=== PATIENT | female | born 1945 | race Caucasian/White ===

== ENCOUNTER → 2016-11-12 | Outpatient (CLI) | payer MEDICARE ==
[~2016-11-12] MED LIST: BACT800T5 PO; CEPH-460 PO; IBUP-1129 PO; OXYC1TAB63 PO; PAXI10TA2 PO
[2016-11-12 15:12] LABS: AUTOMATED NEUTROPHIL # 4.5 TH/MM3 (1.8-7.7); BASOPHIL % 0.6 % (0.0-2.0); EOSINOPHIL % 0.7 % (0.0-4.0); HEMATOCRIT 37.7 % (35.0-46.0); HEMO FLAGS DIFF FINAL; LYMPH % 26.4 % (9.0-44.0); LYMPHOCYTE # 1.8 TH/MM3 (1.0-4.8); MEAN CELL VOLUME 90.5 FL (80.0-100.0); MEAN CORPUSCULAR HEMOGLOBIN 31.3 PG (27.0-34.0); MEAN CORPUSCULAR HGB CONC 34.6 % (32.0-36.0); MONO % 5.9 % (0.0-8.0); NEUT % 66.4 % (16.0-70.0); PLATELET COUNT 245 TH/MM3 (150-450); RED BLOOD COUNT 4.16 MIL/MM3 (4.00-5.30); RED CELL DISTRIBUTION WIDTH 13.1 % (11.6-17.2); WHITE BLOOD COUNT 6.7 TH/MM3 (4.0-11.0)
[2016-11-12 15:26] LABS: APTT (PATIENT) 25.8 SEC (24.3-30.1); INTERNATIONAL NORMALIZED RATIO 0.9 RATIO; PROTHROMBIN TIME - PATIENT 10.4 SEC (9.8-11.6)
[2016-11-12 15:42] LABS: ANION GAP 8 MEQ/L (5-15); AST (GOT) 19 U/L (15-37); BICARBONATE 28.2 MEQ/L (21.0-32.0); BLOOD UREA NITROGEN 22 MG/DL (7-18); CHLORIDE 108 MEQ/L (98-107); GLOMERULAR FILTRATION RATE 71 ML/MIN (>89); GLUCOSE,FASTING 93 MG/DL (74-99); POTASSIUM 3.9 MEQ/L (3.5-5.1); SODIUM (NA) 144 MEQ/L (136-145)
[2016-11-12 15:50] LABS: ALKALINE PHOSPHATASE 72 U/L (45-117); ALT (GPT) 23 U/L (10-53); TOTAL BILIRUBIN ADULT 0.9 MG/DL (0.2-1.0)
--- NOTE | 2016-11-13 12:17 | EKG ---
Date Performed: 11/12/2016 Time Performed: 15:04:56 PTAGE: 71 years EKG: Sinus rhythm WITH OCCASIONAL SUPRAVENTRICULAR PREMATURE COMPLEXES LOW QRS VOLTAGE IN PRECORDIAL LEADS BORDERLINE ECG NO PREVIOUS TRACING DOCTOR: Tiago Parker Interpretating Date/Time 11/13/2016 12:14:57
== END ==
LOC: CPRE 14:11
PROVIDERS: ATTEND Obstetrics & Gynecology Gynecologic Oncology
DX: Z01.812 Encounter for preprocedural laboratory examination (principal); Z01.810 Encounter for preprocedural cardiovascular examination; C54.1 Malignant neoplasm of endometrium; R94.31 Abnormal electrocardiogram [ECG] [EKG]
CPT/HCPCS: 36415; 80053; 85025; 85610; 85730; 93005

== ENCOUNTER 2016-11-25 07:56 | Observation (INO) | payer MEDICARE ==
[~2016-11-25] VITALS: Ht 168.9 cm; Wt 65.8 kg
[~2016-11-25 07:56] MED LIST changes: -BACT800T5 PO; -CEPH-460 PO; -IBUP-1129 PO; -OXYC1TAB63 PO
[2016-11-25 08:45] VITALS: BP 137/73; PULSE 63; RESP 18; TEMP 97.7; O2SAT 95
[2016-11-25] MEDS ORDERED: SODIUM CHLORID 0.9% 500 ML IV PRN (08:45)
[2016-11-25] MEDS ORDERED: INSULIN HUMAN REGULAR 1,000 UNITS/10 ML VIAL SQ PRN (08:45)
[2016-11-25] MEDS ORDERED: ceFAZolin 1,000 MG/NS 100 ML IV SCH ×2 (08:45)
[2016-11-25] MEDS ORDERED: CHLORHEXIDINE GLUCONATE 2 % 1 PACK (2 CLOTHS) TOPICAL PRN (08:45)
[2016-11-25] MEDS ORDERED: IBUP-1129 PO (08:45)
[2016-11-25] MEDS ORDERED: POVIDONE IODINE 5% (ANTISEPSIS KIT) 4 APPLICATIONS EACH NARE PRN (08:45)
[2016-11-25] MEDS ORDERED: HEPARIN SODIUM - SQ 10,000 UNITS/ML VIAL SQ SCH (08:45)
[2016-11-25] MEDS ORDERED: LACTATED RINGER'S 1000 ML IV PRN (08:45)
[2016-11-25] MEDS ORDERED: METOPROLOL TARTRATE 25 MG TAB PO PRN (08:45)
[2016-11-25] MEDS ORDERED: ACETAMINOPHEN 1000 MG/100 ML VIAL IV ONE (11:35)
[2016-11-25] MEDS ORDERED: HYDROmorphone HCL PF 2 MG/ML VIAL ONE (11:36)
[2016-11-25] MEDS ORDERED: MIDAZOLAM HCL 2 MG/2 ML VIAL ONE (11:36)
[2016-11-25] MEDS ORDERED: DEXAMETHASONE SOD PHOS 4 MG/ML VIAL ONE (11:36)
[2016-11-25] MEDS ORDERED: ARTIFICIAL TEARS OPTH OINT 3.5 APPLIC/3.5 GM TUBO ONE (11:36)
[2016-11-25] MEDS ORDERED: FAMOTIDINE 20 MG/2 ML VIAL ONE (11:36)
[2016-11-25] MEDS ORDERED: PROPOFOL 200 MG/20 ML AMP IV ONE (12:00)
[2016-11-25] MEDS ORDERED: VECURONIUM BROMIDE 10 MG VIAL IV ONE (12:00)
[2016-11-25] MEDS ORDERED: ONDANSETRON HCL 4 MG/2 ML VIAL IV PUSH ONE ×2 (12:00)
[2016-11-25] MEDS ORDERED: PHENYLEPH/NS 1000 MCG/10 ML SYR IV ONE (12:00)
[2016-11-25] MEDS ORDERED: ePHEDrine/NS 25 MG/5 ML SYR IV ONE (12:00)
[2016-11-25] MEDS ORDERED: NORMOSOL R INJ 1,000 ML IV ONE (12:00)
[2016-11-25] MEDS ORDERED: LACTATED RINGER'S 1000 ML INJ 1,000 ML IV ONE (12:00)
[2016-11-25] MEDS ORDERED: LIDOCAINE 1%/EPINEPHrine 1:100,000 SOLN 30 ML VIAL INFIL ONE (12:30)
[2016-11-25] MEDS ORDERED: METHYLENE BLUE 10 MG/ML VIAL OTHER ONE (14:01)
[2016-11-25] MEDS ORDERED: SUGAMMADEX SODIUM 200 MG/2 ML VIAL IV PUSH ONE ×2 (14:22)
[2016-11-25] MEDS ORDERED: fentaNYL CITRATE 250 MCG/5 ML AMP ONE ×2 (14:22→16:40)
[2016-11-25] MEDS ORDERED: SILVER NITR/POTASSIUM NITRATE APPLICATORS TOPICAL ONE (16:09)
[2016-11-25] MEDS: D5-1/2 NS + KCL 20 MEQ INJ 1,000 ML IV SCH (16:25)
[2016-11-25] MEDS ORDERED: oxyCODONE/ACETAMINOPHEN 5 MG/325 MG TAB PO PRN (16:30)
[2016-11-25] MEDS ORDERED: SODIUM CHLORIDE 0.9% FLUSH 10 ML FLUSH IV FLUSH PRN (16:30)
[2016-11-25] MEDS ORDERED: LORazepam 0.5 MG TAB PO PRN (16:30)
[2016-11-25] MEDS ORDERED: diphenhydrAMINE HCL 25 MG CAP PO PRN (16:30)
[2016-11-25] MEDS ORDERED: *morphine SULFATE 8 MG/ML PERIprocedure ONLY ONE (16:59)
[2016-11-25] MEDS ORDERED: DO NOT ADM ANY ANTICOAGULANT DRUGS PRN (17:00)
[2016-11-25] MEDS: KETOROLAC TROMETHAMINE 30 MG/ML (IVP) VIAL IVP SCH (18:00)
[2016-11-25 18:20] VITALS: BP 148/98; PULSE 88; RESP 18; TEMP 98; O2SAT 93
[2016-11-25 20:00] VITALS: BP 137/70; PULSE 63; RESP 17; TEMP 96.8; O2SAT 93
[2016-11-25] MEDS ORDERED: SODIUM CHLORIDE 0.9% FLUSH 10 ML FLUSH IV FLUSH SCH (21:00)
[2016-11-25] MEDS ORDERED: PARoxetine HCL 20 MG TAB PO SCH (21:00)
[2016-11-25] MEDS: ONDANSETRON HCL 4 MG/2 ML VIAL IVP PRN (21:18)
[2016-11-25] MEDS: oxyCODONE/ACETAMINOPHEN 5 MG/325 MG TAB PO PRN (21:18)
[2016-11-26] VITALS: BP 149/69; PULSE 65; RESP 17; TEMP 97; O2SAT 96
[2016-11-26] MEDS: KETOROLAC TROMETHAMINE 30 MG/ML (IVP) VIAL IVP SCH ×2 (00:18→05:56)
[2016-11-26] MEDS: D5-1/2 NS + KCL 20 MEQ INJ 1,000 ML IV SCH (02:30)
[2016-11-26] MEDS: oxyCODONE/ACETAMINOPHEN 5 MG/325 MG TAB PO PRN ×2 (04:25→09:05)
[2016-11-26 05:53] LABS: AUTOMATED NEUTROPHIL # 6.9 TH/MM3 (1.8-7.7); BASOPHIL % 0.3 % (0.0-2.0); HEMATOCRIT 34.3 % (35.0-46.0); HEMO FLAGS DIFF FINAL; LYMPHOCYTE # 1.3 TH/MM3 (1.0-4.8); MEAN CELL VOLUME 91.3 FL (80.0-100.0); MEAN CORPUSCULAR HEMOGLOBIN 30.8 PG (27.0-34.0); MEAN CORPUSCULAR HGB CONC 33.7 % (32.0-36.0); MONO % 7.7 % (0.0-8.0); PLATELET COUNT 184 TH/MM3 (150-450); RED BLOOD COUNT 3.76 MIL/MM3 (4.00-5.30); RED CELL DISTRIBUTION WIDTH 13.1 % (11.6-17.2)
[2016-11-26 06:01] VITALS: BP 112/59; PULSE 76; RESP 17; TEMP 98.9; O2SAT 95
[2016-11-26 06:21] LABS: BICARBONATE 26.7 MEQ/L (21.0-32.0); POTASSIUM 3.7 MEQ/L (3.5-5.1)
[2016-11-26] MEDS ORDERED: OXYC1TAB63 PO (07:35)
[2016-11-26 08:00] VITALS: BP 117/63; PULSE 70; RESP 16; TEMP 99.1; O2SAT 95
[2016-11-26] MEDS: ONDANSETRON HCL 4 MG/2 ML VIAL IVP PRN (08:57)
--- NOTE | 2016-11-26 18:43 | MP ---
cc: MUNDO CARBAJAL MD,SIOMARA LOPEZ MD, M.D. DATE OF SURGERY 11/25/2016 PREOPERATIVE DIAGNOSIS Endometrial cancer. POSTOPERATIVE DIAGNOSIS Endometrial cancer. PROCEDURE Robotic-assisted laparoscopic hysterectomy, bilateral salpingo-oophorectomy, bilateral pelvic lymphadenectomy, para-aortic lymphadenectomy. SURGEON Alfonzo Liriano MD HVAC OPERATIONS TECHNICIAN Fleming assistant program director ANESTHESIA General endotracheal anesthesia ESTIMATED BLOOD LOSS 100 mL IV FLUIDS 1400 mL URINE OUTPUT 200 mL HISTORY A 71-year-old female postmenopausal bleeding. Imaging showed a mass-like effect in the fundus of the uterus. Biopsy was obtained which showed a grade 2 endometrial adenocarcinoma. She was seen and counseled regarding options, was in favor of surgery. We discussed risk factors that may warrant recommendation for staging procedure. She was in favor of being thorough with staging, understood any potential long and short-term risks and benefits. She is seen again in the preop holding area where the findings, plan of care are discussed, reviewed. Questions were answered. She expressed good understanding and wished to move forward with surgery. FINDINGS AT SURGERY The uterus was enlarged. It sounded to approximately 8 cm with small amount of bleeding during manipulation of the uterus. at the beginning of case on the peritoneal assessment the uterus is prominent. The fundus has a mass-like effect from the external view could be utility sales representative of a leiomyoma, although the consistency was less firm than a leiomyoma and raised the possibility of tumor in conjunction with CAT scan findings. There were no appreciably enlarged pelvic or para-aortic lymph nodes. The peritoneal surfaces were smooth. The liver and diaphragm edges were smooth. The omentum, large and small bowel and adjacent mesentery were all normal without tumor implants. Preliminary pathology showed there to be a fairly large tumor in the uterus approximately 7 cm and it grew into the wall of the uterus 100% depth of invasion. It was uncertain whether or not it extended through the serosa on the sections reviewed. There did not seem to be penetration into the serosa, but there was essentially 100% invasion into the myometrium. There was no endocervical extension. PROCEDURE IN DETAIL The patient taken to the operating room placed in dorsal lithotomy position where general endotracheal anesthesia was administered. Time-out was undertaken. The patient was identified by sight recognition and hospital ID bracelet and the proposed procedure was reviewed and confirmed. She was carefully positioned in padded Roger stirrups. Her arms were padded and secured to the sides. She was further secured to the operating table with egg crate padding and tape in across chest over the shoulder fashion. All sites noted to be properly aligned with no malalignments or pressure points. She was prepped below the waist. Special note and caution was made in positioning this patient and in manipulating her during surgery. She has limited mobility in her left leg, especially at the hip joint so she was positioned asymmetrically on the bed. She was positioned to the toward the left side of the bed such that the left stirrup was essentially straight out without lateral movement and we limited the flexing and mobilization during positioning and during the surgery. After being prepped in sterile fashion, the cervix was grasped, uterine cavity was sounded with findings as described above. A small V-Care manipulator was inserted and secured in usual fashion. Valdez catheter placed in the bladder. She was returned to low lithotomy position. Change of sterile gloves was undertaken. We completed draping in anticipation of laparoscopy. We confirmed that an orogastric tube was in the stomach on suction. With manual elevation of the abdominal wall and direct laparoscopic visualization, 5 mm cannula was placed in the left upper quadrant. Carbon dioxide gas was insufflated and an atraumatic entry was confirmed. She was placed in steep Trendelenburg position. Peritoneal washings were obtained for cytology. The anatomy was explored with findings as described above. Small bowel was folded back on its mesenteric root. Three Ray-Rina sponges were placed around the root of the small bowel mesentery. The robotic system was brought into the operative field, attached in the usual fashion. Monopolar scissors, fenestrated bipolar forceps and Prograsp manipulators were placed in arms #1, 2 and 3 respectively and I took my place at the surgeon's console. Right round ligament isolated, cauterized, transected. The anterior and posterior leafs of the broad ligament were opened. The right ureter was identified. The right infundibulopelvic ligament was isolated. The intervening peritoneum was opened. Infundibulopelvic ligament was isolated and cauterized at the level of the pelvic brim and transected. Posterior peritoneum opened along the right side of uterus and cervix and the right vesicouterine peritoneum was dissected off the lower uterine segment and cervix. Right uterine vessels were skeletonized, cauterized and transected as were the cardinal, paracervical and uterosacral ligaments. Attention was directed toward the left side, left round ligament isolated, cauterized, transected. Adhesions were taken down to mobilize the colon. Retroperitoneal dissection was continued. The left ureter was identified. The left infundibulopelvic ligament was isolated. It was isolated and cauterized at the level of the pelvic brim and transected. Posterior peritoneum opened along the left side of uterus and cervix and the left vesicouterine peritoneum dissected off the lower uterine segment and cervix. Left uterine vessels were skeletonized, cauterized and transected as were the cardinal, paracervical and uterosacral ligaments. Colpotomy was performed the cervix from the upper vagina. The specimen was withdrawn including uterus, cervix, tubes and ovaries and a pneumo-occluder balloon was placed in the vagina to maintain pneumoperitoneum. Instruments one at three exchanged for needle drivers as 0 Vicryl suture was introduced. Vaginal cuff was closed starting at the left corner, full-thickness closure including edge of the uterosacral ligament, posterior peritoneum tied via instrument tie. The closure was held on counter traction as a running full-thickness continuous closure was carried across the vaginal cuff to the contralateral corner where it was similarly secured, tied. The needle was cut and removed. Pathology came back showing risk factors as above. Large tumor at least intermediate grade with 100% myometrial invasion and, according to preoperative discussion and agreement, these risk factors warranted further staging biopsies to assess for the possibility of microscopic metastatic disease. The right paravesical, pararectal spaces and obturator spaces were developed. A lymph node dissection was carried out starting at the bifurcation of the iliac vessels carried along the psoas muscle distally to the circumflex iliac vein. The medial port of dissection was the superior vesical artery. Dissection was carried down to the obturator nerve and lymphatics ventral to the obturator nerve were removed. The genitofemoral nerve was isolated and spared and the en bloc specimen was placed in the right pelvis for later retrieval. Retroperitoneal dissection was carried out along the common iliac artery and the lower portion of the aorta and dissection laterally overlying the psoas muscle. Bipolar cautery and sharp dissection were used to remove the lymphatics overlying and adjacent to the aorta and vena cava from the bifurcation of the iliacs to just above the bifurcation of the aorta. Small bleeders rendered hemostatic with bipolar cautery and the lymphatics were placed in the para-aortic region for later retrieval. Attention was redirected to the pelvis. On the left side, the paravesical, pararectal and obturator spaces were developed. Lymphatic tissue was taken down using bipolar cautery and sharp dissection. The genitofemoral nerve was isolated and spared as lymphatic dissection was carried out in similar fashion as described on the right from above the bifurcation of the iliac vessels distally to the circumflex iliac vein, medially to the superior vesical artery and down to the base of the obturator space as lymphatics ventral to the obturator nerve were removed and this en bloc specimen was placed in the left pelvis for later retrieval. The integrity of the bladder was confirmed by filling the bladder with saline dyed with methylene blue. There were no areas of blue to suggest thinning of the bladder. No extravasation of dye and there was a good margin between the bladder edge and the vaginal cuff suture line. Good peristalsis of ureters bilaterally. Neurovascular structures were intact from pelvic dissection and the bladder was drained. Small bleeders rendered hemostatic with bipolar cautery. The pelvis and abdomen dissection areas were thoroughly irrigated. Satish hemostatic agent was placed to assist in continued hemostasis in the periaortic and pelvic lymph node dissection regions and across the vaginal cuff. It was felt that all reasonable surgical objectives had been completed. The robotic instruments were removed. The robotic system was disengaged from the operative field. I reentered the bedside under sterile condition. Each of the three Ray-Rina sponges that had been placed were now removed. They were removed individually through the 12-mm cannula. Each were inspected and noted to be removed in their entirety. EndoCatch bag was used to capture the para-aortic lymph nodes followed by the right pelvic lymph nodes followed by the left pelvic lymph nodes which were brought out through the 12-mm cannula and sent for permanent histopathologic analysis. Inspection confirmed there were no remaining foreign objects in the peritoneal cavity. Preliminary counts were correct. The 12-mm fascial defect was closed with 0 Vicryl suture using a needle apparatus. These were tied securely, rendered the fascia completely airtight and hemostatic. Remaining cannulas were withdrawn. Carbon dioxide gas was removed from the peritoneal cavity. 3-0 Vicryl subcutaneous, 3-0 Vicryl subcuticular were used to close these skin incisions. Steri-Strips were placed as a dressing. She was inspected in low lithotomy position. Vaginal cuff was well supported, hemostatic. There were no vaginal lacerations. There was a little bit of superficial mucosal irritation and the remainder of the Satish hemostatic agent was placed in the vagina. There were no remaining foreign objects and final counts were correct. She was returned to dorsal supine position and was pending reversal of anesthesia when I left the operating room to precede her to the Post Anesthesia Care Unit and to speak to family members who were waiting in the surgical waiting area. MD KIT Tubbs/ /7:50 AM /5:54 PM
--- NOTE | 2016-11-29 11:50 | MD ---
cc: SIOMARA KELSEY M.D., KELLY L. MD MUNDO CARBAJAL ADMISSION DATE: 11/25/2016 DISCHARGE DATE: 11/26/2016 DATE OF ADMISSION 11/25/2016 DATE OF DISCHARGE 11/26/2016 PROCEDURE 11/25/2016 - Robotic-assisted laparoscopic hysterectomy, bilateral salpingo-oophorectomy, bilateral pelvic lymphadenectomy, para-aortic lymphadenectomy. DIAGNOSIS Endometrial cancer. HOSPITAL COURSE She has done well in the early postop period. She is tolerating oral intake. Valdez catheter removed pending voiding. Hemodynamically stable. Adequate pain control. OBJECTIVE In's and out's 3166/1050. H&H 11.6 and 34.3. Electrolytes - Essentially normal potassium at 3.7, BUN and creatinine is 13 and 0.67. PHYSICAL EXAMINATION VITAL SIGNS: Afebrile. Pulse 60-80, respirations 13-17, blood pressure 112-151/59-98, O2 saturations greater than or equal to 95% while awake. GENERAL: Alert and oriented x 3 in no acute distress. LUNGS: Clear. Minimal rales at the bases. CARDIOVASCULAR: Regular rate and rhythm. ABDOMEN: Soft. Incisions clean and dry. LEAD BURNER SUPERVISOR: No bleeding. EXTREMITIES: Nontender. ASSESSMENT Postoperative day #1 doing well in early postoperative period. The findings at the time of surgery, preliminary pathology and steps taken at surgery were discussed and reviewed. Activities and restrictions were reviewed. Questions were answered. She expressed good understanding and agreed. PLAN Anticipate discharge to home today. She is to resume prior medications. She will have a prescription for Percocet. She is to contact our office to ensure she has scheduled followup in 2 weeks and contact our office between now and the time of followup should she have any questions or problems. MD KIT Tubbs/ESPERANZA /7:43 AM /11:45 AM
== END 2016-11-26 11:46 | disposition home or self-care (01) ==
LOC: HSDC 07:56 → HSDI 16:28 → HOCA 18:12
PROVIDERS: ADMIT Obstetrics & Gynecology Gynecologic Oncology; ATTEND Obstetrics & Gynecology Gynecologic Oncology
DX: C54.1 Malignant neoplasm of endometrium (principal); N95.0 Postmenopausal bleeding; F41.9 Anxiety disorder, unspecified
CPT/HCPCS: 00840; 38572; 58552; 80048; 85025; 86850; 86900; 86901; 88112; 88307; 88309; 88329; 94150; G0378; J0131; J0690; J1100; J1170; J1644; J1885; J2250; J2270; J2370; J2405; J3010; J3480; J7120; 88305; 88331

== ENCOUNTER → 2017-05-10 | Day surgery (SDC) | payer MEDICARE ==
[~2017-05-10] VITALS: Ht 167.6 cm; Wt 64.4 kg
[~2017-05-10] MED LIST changes: +*morphine SULFATE 4 MG/ML PERIprocedure ONLY ONE; +CHLORHEXIDINE GLUCONATE 2 % 1 PACK (2 CLOTHS) TOPICAL PRN; +DEXAMETHASONE SOD PHOS 4 MG/ML VIAL IV ONE; +DO NOT ADM ANY ANTICOAGULANT DRUGS PRN; +GELFOAM SIZE 100 ONE; +GLYCOPYRROLATE 1 MG/5 ML SYRINGE IV PUSH ONE; +HYDR-3516 PO; +IBUP-1129 PO; +KETOROLAC TROMETHAMINE 30 MG/ML (IVP) VIAL IV PUSH ONE; +LACTATED RINGER'S 1000 ML IV PRN; +LIDOCAINE 1%/EPINEPHrine 1:100,000 SOLN 50 ML VIAL ONE; +LIDOCAINE HCL 1% PF 5 ML SYRINGE OTHER ONE; +METOPROLOL TARTRATE 25 MG TAB PO PRN; +MORPHINE SULFATE 2 MG/ML INJ IV PUSH ONE; +MORPHINE SULFATE 4 MG/ML INJ ONE; +NEOSTIGMINE 5 MG/5 ML SYRINGE IV PUSH ONE; +ONDANSETRON HCL 4 MG/2 ML VIAL IV PUSH ONE; +OXYC1TAB63 PO; -PAXI10TA2 PO; +PAXI10TA8 PO; +POVIDONE IODINE 5% (ANTISEPSIS KIT) 4 APPLICATIONS EACH NARE PRN; +PROPOFOL 200 MG/20 ML AMP IV ONE; +ROCURONIUM INJ 50 MG/5 ML SYRINGE IV PUSH ONE; +SODIUM CHLORID 0.9% 500 ML IV PRN; +THROMBIN (TOPICAL) 5,000 UNIT VIAL ONE; +ceFAZolin INJ 1,000 MG VIAL IV ONE; +ePHEDrine/NS 25 MG/5 ML SYRINGE IV ONE; +oxyCODONE/ACETAMINOPHEN 5 MG/325 MG TAB PO PRN
[2017-05-10 15:41] VITALS: BP 120/64; PULSE 71; RESP 18; TEMP 98.6; O2SAT 94
--- NOTE | 2017-05-12 12:51 | MP ---
cc: MUNDO CARBAJAL KELLY L. MD ROUSE, JACOB M.D. DATE OF SURGERY 05/10/2017 PREOPERATIVE DIAGNOSIS 1. Right abdominal wall nodule. 2. History of endometrial cancer. POSTOPERATIVE DIAGNOSIS 1. Right abdominal wall nodule. 2. History of endometrial cancer. PROCEDURE Excision of abdominal wall nodule. SURGEON Jennifer Liriano. DRUM ATTENDANT Doss Lay Midwife. ANESTHESIA General endotracheal. ESTIMATED BLOOD LOSS 25 cc. IV FLUIDS 1000 cc. URINE OUTPUT 200 cc. HISTORY A 71-year-old female who previously had a history of endometrial cancer and has recently had some symptomatology including abdominal pain, a sense of abdominal fullness and distention. She also had a palpable nodule in the abdominal wall in the right upper quadrant. She underwent CAT scan imaging that shows no overt anatomical changes within the peritoneal cavity, no obvious hernia, no adenopathy, no ascites, no omental thickening, intraperitoneal nodularity or tumor. Noted was an approximately 2 cm nodule in the abdominal wall right upper quadrant, the base of which seemed adjacent to the fascia but seemed completely outside the peritoneal cavity. As this right upper quadrant nodule was symptomatic and she believes getting larger and given her history of cancer, options were discussed and she is in favor of surgical excision. She is seen in the pre-op holding area. She is accompanied by her sister. The findings are again reviewed. Consideration and plan for surgical excision are discussed and she is in favor of moving forward with surgery. FINDINGS As described a 2 cm solid nodule in the right upper quadrant abdominal wall. The base of it is adherent to the fascia. The remainder of the mass is in the subcutaneous adipose tissue. DETAILS OF PROCEDURE She is taken to the operating room and placed in the dorsal supine position. After general endotracheal anesthesia was administered a timeout was undertaken. She was identified by sight recognition and hospital ID bracelet and the proposed procedure was reviewed and confirmed. She was prepped and draped in sterile fashion. A sterile marker was used to make an overlying area after identifying the central location overlying the mass and lidocaine epinephrine was injected subcutaneously. Sharp incision was made down through the skin and Mason's fascia. Blunt and cautery dissection were used to dissect through the subcutaneous fat down until the surface layer of the mass was reached and then cautery and blunt and sharp dissection were used interchangeably to release the mass from surrounding capsule, scar tissue and adipose tissue. Dissection was continued circumferentially until the entire mass was removed. Inspection confirmed there was no remaining palpable or visible abnormality. The mass was removed and sent for permanent histopathologic analysis. The base of the excision area was irrigated thoroughly. There was some superficial separation to the fascia which was closed with interrupted 0 Vicryl [id number] sutures rendering the fascia completely re-approximated and restored. The subcutaneous tissue was closed with running 3-0 Vicryl suture to Mason's fascia and then the skin edges closed with a running 3-0 Vicryl subcuticular closure. Steri-Strips and dry sterile dressing was placed over this incision. Preliminary and final counts were correct. She was pending reversal of anesthesia when I left the operating room to precede her to the post-anesthesia care unit. MD KIT Tubbs/NISHI /1:01 PM /12:28 PM
== END | disposition home or self-care (01) ==
LOC: HSDC 10:23
PROVIDERS: ATTEND Obstetrics & Gynecology Gynecologic Oncology
DX: C49.4 Malignant neoplasm of connective and soft tissue of abdomen (principal); Z85.42 Personal history of malignant neoplasm of other parts of uterus
CPT/HCPCS: 00700; 22900; 86850; 86900; 86901; 88307; J0690; J1100; J1885; J2270; J2405; J2710; J7120; 88305

== ENCOUNTER 2017-06-06 10:19 | Emergency (ER) | payer MEDICARE ==
[~2017-06-06 10:19] MED LIST changes: -*morphine SULFATE 4 MG/ML PERIprocedure ONLY ONE; -CHLORHEXIDINE GLUCONATE 2 % 1 PACK (2 CLOTHS) TOPICAL PRN; -DEXAMETHASONE SOD PHOS 4 MG/ML VIAL IV ONE; -DO NOT ADM ANY ANTICOAGULANT DRUGS PRN; -GELFOAM SIZE 100 ONE; -GLYCOPYRROLATE 1 MG/5 ML SYRINGE IV PUSH ONE; -KETOROLAC TROMETHAMINE 30 MG/ML (IVP) VIAL IV PUSH ONE; -LACTATED RINGER'S 1000 ML IV PRN; -LIDOCAINE 1%/EPINEPHrine 1:100,000 SOLN 50 ML VIAL ONE; -LIDOCAINE HCL 1% PF 5 ML SYRINGE OTHER ONE; -METOPROLOL TARTRATE 25 MG TAB PO PRN; -MORPHINE SULFATE 2 MG/ML INJ IV PUSH ONE; -MORPHINE SULFATE 4 MG/ML INJ ONE; -NEOSTIGMINE 5 MG/5 ML SYRINGE IV PUSH ONE; -ONDANSETRON HCL 4 MG/2 ML VIAL IV PUSH ONE; -OXYC1TAB63 PO; -PAXI10TA8 PO; -POVIDONE IODINE 5% (ANTISEPSIS KIT) 4 APPLICATIONS EACH NARE PRN; -PROPOFOL 200 MG/20 ML AMP IV ONE; -ROCURONIUM INJ 50 MG/5 ML SYRINGE IV PUSH ONE; -SODIUM CHLORID 0.9% 500 ML IV PRN; -THROMBIN (TOPICAL) 5,000 UNIT VIAL ONE; -ceFAZolin INJ 1,000 MG VIAL IV ONE; -ePHEDrine/NS 25 MG/5 ML SYRINGE IV ONE; -oxyCODONE/ACETAMINOPHEN 5 MG/325 MG TAB PO PRN
[2017-06-06 10:24] VITALS: BP 135/66; PULSE 100; RESP 20; TEMP 99; O2SAT 97
[2017-06-06 11:11] LABS: BLOOD, URINE SMALL (NEG); GLUCOSE,URINE NEG (NEG); KETONE, URINE 80 OR GREATER mg/dL (NEG); NITRITE,URINE NEG (NEG); URINE LEUKOCYTE ESTERASE NEG (NEG)
[2017-06-06 11:19] LABS: BILIRUBIN, URINE NEG (NEG)
[2017-06-06 11:20] LABS: SQUAMOUS EPITHELIAL CELL URINE 0-5 /hpf (0-5); URINE COLOR YELLOW (YELLW/STRAW); WBC, URINE 0-2 /hpf (0-5)
[2017-06-06] MEDS ORDERED: FAMO1TAB37 PO (12:11)
[2017-06-06] MEDS ORDERED: PRIL20TA2 PO (12:11)
[2017-06-06] MEDS ORDERED: HYDR-3583 PO (12:11)
[2017-06-06] MEDS ORDERED: SODIUM CHLOR 0.9% 1000 ML INJ 1,000 ML IV SCH (12:29)
[2017-06-06] MEDS ORDERED: ONDANSETRON HCL 4 MG/2 ML VIAL IVP ONE (12:30)
[2017-06-06] MEDS ORDERED: KETOROLAC TROMETHAMINE 30 MG/ML (IVP) VIAL IVP ONE (12:30)
[2017-06-06] MEDS ORDERED: SODIUM CHLORIDE 0.9% FLUSH 10 ML FLUSH IV FLUSH PRN (12:30)
[2017-06-06] MEDS ORDERED: MORPHINE SULFATE 2 MG/ML INJ IV PUSH ONE (12:30)
[2017-06-06 12:55] LABS: AUTOMATED NEUTROPHIL # 7.4 TH/MM3 (1.8-7.7); BASOPHIL # 0.2 TH/MM3 (0-0.2); EOSINOPHIL % 0.2 % (0.0-4.0); HEMATOCRIT 36.9 % (35.0-46.0); HEMOGLOBIN 12.2 GM/DL (11.6-15.3); LYMPHOCYTE # 0.8 TH/MM3 (1.0-4.8); MEAN CELL VOLUME 87.7 FL (80.0-100.0); MEAN CORPUSCULAR HEMOGLOBIN 29.1 PG (27.0-34.0); MEAN CORPUSCULAR HGB CONC 33.2 % (32.0-36.0); MEAN PLATELET VOLUME 7.4 FL (7.0-11.0); MONO % 3.7 % (0.0-8.0); MONOCYTE # 0.3 TH/MM3 (0-0.9); NEUT % 85.1 % (16.0-70.0); PLATELET COUNT 370 TH/MM3 (150-450); RED BLOOD COUNT 4.21 MIL/MM3 (4.00-5.30); RED CELL DISTRIBUTION WIDTH 11.3 % (11.6-17.2); WHITE BLOOD COUNT 8.7 TH/MM3 (4.0-11.0)
[2017-06-06 13:03] LABS: CHLORIDE 100 MEQ/L (98-107); SODIUM (NA) 137 MEQ/L (136-145)
[2017-06-06 13:06] LABS: ALBUMIN 3.4 GM/DL (3.4-5.0); GLUCOSE,RANDOM 77 MG/DL (74-106)
[2017-06-06 13:07] LABS: BICARBONATE 26.3 MEQ/L (21.0-32.0); BLOOD UREA NITROGEN 16 MG/DL (7-18); LIPASE 158 U/L (73-393)
[2017-06-06 13:09] LABS: ALT (GPT) 47 U/L (10-53); AST (GOT) 63 U/L (15-37)
[2017-06-06 13:10] LABS: CREATININE 0.58 MG/DL (0.50-1.00); GLOMERULAR FILTRATION RATE 103 ML/MIN (>89)
[2017-06-06 13:11] LABS: TOTAL BILIRUBIN ADULT 0.6 MG/DL (0.2-1.0); TOTAL PROTEIN 7.5 GM/DL (6.4-8.2)
[2017-06-06 13:12] LABS: ALKALINE PHOSPHATASE 230 U/L (45-117)
[2017-06-06 13:44] LABS: INTERNATIONAL NORMALIZED RATIO 1.1 RATIO; PROTHROMBIN TIME - PATIENT 11.3 SEC (9.8-11.6)
[2017-06-06] MEDS ORDERED: IOHEXOL 350 MG/ML 10 ML VIAL (for RAD DIAG) IVCONTRAST ONE (14:00)
--- NOTE | 2017-06-06 14:10 | RADRPT ---
EXAM DATE/TIME: 06/06/2017 13:48 [facility] COMPARISON: No previous studies available for comparison. INDICATIONS : Lower abdominal pain with vaginal bleeding and discharge. IV CONTRAST: 85 cc Omnipaque 350 (iohexol) IV ORAL CONTRAST: No oral contrast ingested. RADIATION DOSE: 7.10 CTDIvol (mGy) MEDICAL HISTORY : Gastroesophageal reflux disease. Uterine cancer. SURGICAL HISTORY : Hysterectomy. ENCOUNTER: Initial ACUITY: 1 week PAIN SCALE: 5/10 LOCATION: lower quadrant TECHNIQUE: Volumetric scanning of the abdomen and pelvis was performed. Using automated exposure control and ad justment of the mA and/or kV according to patient size, radiation dose was kept as low as reasonably achievable to obtain optimal diagnostic quality images. DICOM format image data is available electro nically for review and comparison. FINDINGS: LOWER LUNGS: The visualized lower lungs are clear. LIVER: Liver is low density consistent with fatty metamorphosis. Gallbladder is seen as a luminal structure without wall thickening or stones. There is questionable 8mm dilatation of the extra hepatic common b ile duct indeterminate etiology. Subcapsular peripheral region of the right lobe of the liver suggest s a 1.5 cm vague low density lesion which could represent hemangioma or cyst. SPLEEN: Normal size without lesion. PANCREAS: Within normal limits. KIDNEYS: Normal in size and shape. There is no mass, stone or hydronephrosis. ADRENAL GLANDS: Within normal limits. VASCULAR: There is no aortic aneurysm. BOWEL/MESENTERY: The stomach, small bowel, and colon demonstrate no acute abnormality. There is no free intraperitone al air or fluid. ABDOMINAL WALL: Within normal limits. RETROPERITONEUM: There is no lymphadenopathy. BLADDER: No wall thickening or mass. REPRODUCTIVE: There is a history of hysterectomy. In the anterior pelvis there is a lobular inhomogeneous soft tiss ue mass measuring left to right 6.4 AP 10 cm in size almost having the appearance of omental implants or ovarian lesion is suggested. INGUINAL: There is no lymphadenopathy or hernia. MUSCULOSKELETAL: Degenerative changes of the lumbar spine and left hip. CONCLUSION: Lobular inhomogeneous soft tissue mass in the anterior pelvis as described above in a patient with a history of prior hysterectomy. This measures up to 10-13 cm in size and is suspicious for omental imp lants such as ovarian etiology. Fatty metamorphosis of the liver with suggestion of a subcapsular right lobe lateral 1.5 cm lesion which could represent hemangioma. Additionally there is a question as to 8mm mild dilatation of the common bile duct. Troy Jarvis MD on June 06, 2017 at 14:00 Board Certified Radiologist. This report was verified electronically.
[2017-06-06 14:15] VITALS: BP 114/55; PULSE 81; RESP 16; O2SAT 95
[2017-06-06 14:18] VITALS: RESP 16; O2SAT 96
[2017-06-06 15:17] VITALS: BP 124/62; PULSE 85; RESP 16; O2SAT 96
--- NOTE | 2017-06-06 16:04 | PD ---
HPI Chief Complaint: Abdominal Pain Time Seen by Provider: 12:19 Travel History International Travel<30 days: No Contact w/Intl Traveler<30days: No Traveled to known affect area: No History of Present Illness HPI Patient is a 72-year-old female with history of uterine cancer, status post hysterectomy, who comes in complaining of right lower quadrant abdominal pain. She has had pain since the surgery and radiation, but she says today get worse. She says she has been taking Lortab for pain, and has had to take increasingly more each day. She says she feels a fullness, and that she just doesn't feel right and her abdomen. She denies change in her bowel habits. She still does say she has had a 15 pound weight loss. She says she just has no appetite. She denies any vomiting. She has not had fever or chills. She denies any urinary symptoms. She also noticed vaginal bleeding that started recently, which is new. PFSH Past Medical History Depression: Yes Cancer: Yes (STG 2-3 UTERINE CA november 2016) Cardiovascular Problems: No Diabetes: No Endocrine: No Gastrointestinal Disorders: No GERD: Yes Genitourinary: No Hepatitis: Yes (HEP B ) Hiatal Hernia: No Immune Disorder: No Musculoskeletal: Yes (OSTEOMYLITIS LEFT LEG) Neurologic: No Psychiatric: Yes (DEPRESSION) Reproductive: Yes (STG 2-3 UTERINE CA) Respiratory: No Thyroid Disease: No Tetanus Vaccination: < 5 Years Influenza Vaccination: No ?: Not Menopausal: Yes Past Surgical History Abdominal Surgery: No AICD: No Cardiac Surgery: No Ear Surgery: No Endocrine Surgery: No Eye Surgery: No Genitourinary Surgery: No Gynecologic Surgery: Yes (HYSTERECTOMY) Hysterectomy: Yes (total) Joint Replacement: No Oral Surgery: Yes (T/A) Pacemaker: No Thoracic Surgery: No Tonsillectomy: Yes (T & A) Social History Alcohol Use: Yes (occas. wine) Tobacco Use: No Substance Use: No Allergies-Medications (Allergen,Severity, Reaction): Coded Allergies: No Known Allergies (Unverified Allergy, Unknown, 06/06/17) Reported Meds & Prescriptions Reported Meds & Active Scripts Active Reported Hydrocodone-Acetaminophen 10-325 mg Tab 1 Tab PO Q4-6H PRN Prilosec (Omeprazole Magnesium) 20 Mg Tab 1 Tab PO DAILY Pepcid (Famotidine) 20 Mg Tab 10 Mg PO DAILY Review of Systems Except as stated in HPI: all other systems reviewed are Neg General / Constitutional: No: Fever, Chills HENT: No: Headaches, Lightheadedness Cardiovascular: No: Chest Pain or Discomfort Respiratory: No: Shortness of Breath Gastrointestinal: Positive: Abdominal Pain, No: Nausea, Vomiting Genitourinary: Positive: Vaginal Bleeding, No: Dysuria Musculoskeletal: No: Myalgias, Edema Skin: No Rash, No Change in Pigmentation Neurologic: No: Weakness, Dizziness Physical Exam Narrative GENERAL: Awake and alert, in no acute distress. SKIN: Focused skin assessment warm/dry. HEAD: Atraumatic. Normocephalic. EYES: Pupils equal and round. No scleral icterus. ENT: Mucous membranes pink and moist. NECK: Trachea midline. No JVD. CARDIOVASCULAR: Regular rate and rhythm. No murmur appreciated. RESPIRATORY: No accessory muscle use. Clear to auscultation. Breath sounds equal bilaterally. GASTROINTESTINAL: Abdomen soft, nondistended. Tender to palpation of the right lower quadrant. No rebound or guarding. : Exam performed in the presence of a female nurse. Small amount of bleeding in the vaginal canal. Unable to open the speculum secondary to pain. MUSCULOSKELETAL: No obvious deformities. No clubbing. No cyanosis. No edema. NEUROLOGICAL: Awake and alert. No obvious cranial nerve deficits. Motor grossly within normal limits. Normal speech. PSYCHIATRIC: Appropriate mood and affect; insight and judgment normal. Data Data Last Documented VS Vital Signs Date Time Temp Pulse Resp B/P (MAP) Pulse Ox O2 Delivery O2 Flow Rate FiO2 06/06/17 15:17 85 16 124/62 (82) 96 Room Air 06/06/17 10:24 99.0 Orders Orders Urinalysis - C+S If Indicated (06/06/17 10:22) Complete Blood Count With Diff (06/06/17 12:29) Comprehensive Metabolic Panel (06/06/17 12:29) Lipase (06/06/17 12:29) Lactic Acid (06/06/17 12:29) Prothrombin Time / Inr (Pt) (06/06/17 12:29) Act Partial Throm Time (Ptt) (06/06/17 12:29) Ct Abd/Pel W Iv Contrast(Rout) (06/06/17 12:29) Iv Access Insert/Monitor (06/06/17 12:29) Ecg Monitoring (06/06/17 12:29) Oximetry (06/06/17 12:29) Ondansetron Inj (Zofran Inj) (06/06/17 12:30) Sodium Chlor 0.9% 1000 Ml Inj (Ns 1000 M (06/06/17 12:29) Sodium Chloride 0.9% Flush (Ns Flush) (06/06/17 12:30) Ketorolac Inj (Toradol Inj) (06/06/17 12:30) Morphine Inj (Morphine Inj) (06/06/17 12:30) Iohexol 350 Inj (Omnipaque 350 Inj) (06/06/17 14:00) Labs Laboratory Tests Test 06/06/17 11:03 06/06/17 12:47 Urine Color YELLOW Urine Turbidity CLEAR Urine pH 6.0 Urine Specific [place] 1.025 Urine Protein NEG mg/dL Urine Glucose (UA) NEG mg/dL Urine Ketones 80 OR GREATER mg/dL Urine Occult Blood SMALL Urine Nitrite NEG Urine Bilirubin NEG Urine Leukocyte Esterase NEG Urine RBC 4-9 /hpf Urine WBC 0-2 /hpf Urine Squamous Epithelial Cells 0-5 /hpf Urine Bacteria NONE /hpf Microscopic Urinalysis Comment CULT NOT INDICATED White Blood Count 8.7 TH/MM3 Red Blood Count 4.21 MIL/MM3 Hemoglobin 12.2 GM/DL Hematocrit 36.9 % Mean Corpuscular Volume 87.7 FL Mean Corpuscular Hemoglobin 29.1 PG Mean Corpuscular Hemoglobin Concent 33.2 % Red Cell Distribution Width 11.3 % Platelet Count 370 TH/MM3 Mean Platelet Volume 7.4 FL Neutrophils (%) (Auto) 85.1 % Lymphocytes (%) (Auto) 9.0 % Monocytes (%) (Auto) 3.7 % Eosinophils (%) (Auto) 0.2 % Basophils (%) (Auto) 2.0 % Neutrophils # (Auto) 7.4 TH/MM3 Lymphocytes # (Auto) 0.8 TH/MM3 Monocytes # (Auto) 0.3 TH/MM3 Eosinophils # (Auto) 0.0 TH/MM3 Basophils # (Auto) 0.2 TH/MM3 CBC Comment DIFF FINAL Differential Comment Prothrombin Time 11.3 SEC Prothromb Time International Ratio 1.1 RATIO Activated Partial Thromboplast Time 22.6 SEC Blood Urea Nitrogen 16 MG/DL Creatinine 0.58 MG/DL Random Glucose 77 MG/DL Total Protein 7.5 GM/DL Albumin 3.4 GM/DL Calcium Level 9.0 MG/DL Alkaline Phosphatase 230 U/L Aspartate Amino Transf (AST/SGOT) 63 U/L Alanine Aminotransferase (ALT/SGPT) 47 U/L Total Bilirubin 0.6 MG/DL Sodium Level 137 MEQ/L Potassium Level 4.4 MEQ/L Chloride Level 100 MEQ/L Carbon Dioxide Level 26.3 MEQ/L Anion Gap 11 MEQ/L Estimat Glomerular Filtration Rate 103 ML/MIN Lactic Acid Level 1.0 mmol/L Lipase 158 U/L [facility] Medical Decision Making Medical Screen Exam Complete: Yes Emergency Medical Condition: Yes Medical Record Reviewed: Yes Differential Diagnosis UTI vs SBO vs mass vs colitis vs chronic pain Narrative Course Patient is a 72 year old female who comes in complaining of abdominal pain. Exam shows RLQ tenderness. IV established, labs sent. Labs show no acute abnormalities. Given IVF, pain medicine. CT shows a pelvis mass. Last 24 hours Impressions Abdomen/Pelvis CT 06/06/17 1229 Signed Impressions: Service Date/Time: Tuesday, June 06, 2017 13:48 - CONCLUSION: Lobular inhomogeneous soft tissue mass in the anterior pelvis as described above in a patient with a history of prior hysterectomy. This measures up to 10-13 cm in size and is suspicious for omental implants such as ovarian etiology. Fatty metamorphosis of the liver with suggestion of a subcapsular right lobe lateral 1.5 cm lesion which could represent hemangioma. Additionally there is a question as to 8mm mild dilatation of the common bile duct. Troy Jarvis MD I spoke with Dr. Sepulveda regarding the patient. He says that he did a biopsy of a nodule in April that confirmed recurrence of her cancer. He has an appointment with her Tuesday and will discuss everything with her. She was informed of the presence of the mass. She is comfortable going home. She has pain medicine at home. Advised to return at any time for any worsening symptoms. Diagnosis Primary Impression: Pelvic mass in female Patient Instructions: Abdominal Pain (ED), General Instructions Additional Instructions: Follow-up with Dr. Sepulveda on Tuesday. Take pain medicine as needed. Return to the ED as needed for any worsening symptoms. Disposition: DISCHARGE HOME Condition: Stable Mariaelena Hernandezica B MD Jun 06, 2017 16:04
== END 2017-06-06 16:24 | disposition short-term general hospital (02) ==
LOC: PHED 10:19
DX: R19.00 Intra-abdominal and pelvic swelling, mass and lump, unspecified site (principal); K76.0 Fatty (change of) liver, not elsewhere classified; F32.9 Major depressive disorder, single episode, unspecified; K21.9 Gastro-esophageal reflux disease without esophagitis; Z85.42 Personal history of malignant neoplasm of other parts of uterus; Z90.710 Acquired absence of both cervix and uterus; Z86.19 Personal history of other infectious and parasitic diseases; Z79.899 Other long term (current) drug therapy
CPT/HCPCS: 74177; 80053; 81001; 83605; 83690; 85025; 85610; 85730; 96361; 96374; 96375; 99285; J1885; J2270; J2405; J7030; Q9967

== ENCOUNTER 2017-06-13 07:54 | Day surgery (SDC) | payer MEDICARE ==
[~2017-06-13] VITALS: Ht 167.6 cm; Wt 60.9 kg
[~2017-06-13 07:54] MED LIST changes: +FAMO1TAB37 PO; -HYDR-3516 PO; +HYDR-3583 PO; -IBUP-1129 PO; +PRIL20TA2 PO
[2017-06-13 08:20] VITALS: BP 116/74; PULSE 97; RESP 20; TEMP 98.8; O2SAT 94
[2017-06-13] MEDS ORDERED: SODIUM CHLORIDE 0.9% 1000 ML IV SCH (08:45)
[2017-06-13] MEDS ORDERED: POVIDONE IODINE 5% (ANTISEPSIS KIT) 4 APPLICATIONS EACH NARE SCH (08:45)
[2017-06-13] MEDS ORDERED: CHLORHEXIDINE GLUCONATE 2 % 1 PACK (2 CLOTHS) TOPICAL SCH (08:45)
[2017-06-13] MEDS: VANCOMYCIN 1000 MG/NS 250 ML - implanted port/tunneled catheter IV SCH ×4 (09:00→13:21)
[2017-06-13] MEDS: ceFAZolin 2 GM PREMIX 50 ML - implanted port/tunneled catheter insertion IV SCH ×2 (09:00→13:21)
[2017-06-13] MEDS ORDERED: MIDAZOLAM HCL 2 MG/2 ML VIAL ONE (10:25)
--- NOTE | 2017-06-13 11:20 | PD.RAD ---
Post Procedure Progress Note Pre Procedure Diagnosis: (1) Endometrial ca Post Procedure Diagnosis: (1) Endometrial ca Procedure Date: Jun 13, 2017 Supervising Radiologist: Yohannes Swartz Estimated blood loss: 3cc Anesthesia: Local, Conscious Sedation Plan of Activity Patient to Unit: ROPU Patient Condition: Fair Additional Comments: Port placed via the right IJ Catheter in good position OK for use. Full dictated report to follow. See PACS Report for procedural detail/treatment Yohannes Swartz MD Jun 13, 2017 11:20
[2017-06-13 11:30] VITALS: BP 109/60; PULSE 75; RESP 16; O2SAT 89
[2017-06-13] MEDS ORDERED: SODIUM CHLORIDE 0.9% FLUSH 10 ML FLUSH IVF PRN (11:30)
[2017-06-13 11:45] VITALS: BP 101/58; PULSE 66; RESP 18; O2SAT 94
--- NOTE | 2017-06-13 12:09 | RADRPT ---
EXAM DATE/TIME: 06/13/2017 10:19 [facility] COMPARISON: No previous studies available for comparison. INDICATIONS : Patient presents with endometrial cancer in need of port placement for chemotherapy treatment. MEDICAL HISTORY : Endometrial cancer Hep B Anxiety Herpes Lyme disease Osteomyelitis Vaginal bleeding H/o radiation therapy SURGICAL HISTORY : Colonoscopy Tonsillectomy Hysterectomy ENCOUNTER: Initial ACUITY: 4-6 months PAIN SCORE: 3/10 LOCATION: Lower abdominal pain with bilat hip pain. FLUORO TIME: 0.4 minutes IMAGE SERIES: 1 SEDATION TIME: 30 minutes ACCESS: Right internal jugular vein SEDATION: 1.) 4 mg midazolam (Versed) IV 2.) 200 mcg fentanyl (Sublimaze) IV Prophylactic antibiotics were administered with appropriate pre-procedure timing. Vancomycin within 2 hours of procedure, Ancef (or alternative) within 1 hour of procedure. DEVICE: 1. 8 [place] single lumen Bard Power Port PROCEDURE : 1. Continuous pulse oximetry and EKG monitoring. 2. Intravenous conscious sedation. 3. Ultrasound guidance for venous access. 4. Fluoroscopic guided implantable central venous port placement. The patient was placed supine. The neck was prepped in sterile fashion. Full sterile technique was u sed, including cap, mask, sterile gloves and gown, and a large sterile sheet. Hand hygiene and 2% ch lorhexidine Betadine was utilized per protocol for cutaneous antisepsis with appropriate dry time for site. Sterile gel and sterile probe cover were utilized for ultrasound guidance. The skin and sub cutaneous tissues were infiltrated with local anesthetic solution. Under direct ultrasound guidance, the right internal jugular vein was accessed. The ultrasound images depicting access guidance were stored and saved to PACS for permanent record. A small incision was made in the right anterior chest wall. A subcutaneous pocket was created using blunt dissection. The port was introduced to the pocket. The catheter tubing was fed through a subcutaneous tunnel to the venotomy site. The catheter tubing was cut to a suitable length and then was introduced through a v alved Peel-Away sheath and positioned with catheter tubing tip at the cavo-atrial junction level. Th e pocket incision was closed with subcuticular Vicryl suture. Steri-Strips were applied. The port w as flushed and locked with heparin solution per protocol. Sterile dressing was applied to the site. The patient tolerated the procedure well. Conscious sedation was performed with the prescribed dosages and duration as above in the presence of an independent trained radiology nurse to assist in the monitoring of the patient. EKG and oximetry remained stable throughout the procedure. The patient tolerated the procedure well and there were no complications. The patient was sent to post anesthesia recovery in stable condition. CONCLUSION: Uncomplicated ultrasound and fluoroscopic guided implanted central venous port catheter placement as described in detail above. An 8 [place]ian Power port was placed. Yohannes Swartz MD on June 13, 2017 at 12:06 Board Certified Radiologist. This report was verified electronically.
[2017-06-13 12:15] VITALS: BP 112/59; PULSE 69; RESP 16; O2SAT 95
[2017-06-13 12:45] VITALS: BP 114/55; PULSE 75; RESP 16; O2SAT 91
== END 2017-06-13 13:25 | disposition home or self-care (01) ==
LOC: HROP 07:54 → HRIP 07:55 → HROP 13:25
PROVIDERS: ATTEND Obstetrics & Gynecology Gynecologic Oncology
DX: C54.1 Malignant neoplasm of endometrium (principal); A69.20 Lyme disease, unspecified; M86.9 Osteomyelitis, unspecified
CPT/HCPCS: 36561; 76937; 77001; 99152; 99153; C1788; J0690; J1642; J2250; J3010; J3370; J7030; J7050

== ENCOUNTER 2017-06-23 10:22 | Inpatient (IN) | payer MEDICARE ==
[2017-06-23] VITALS (7 sets, daily range): BP systolic 60–135; BP diastolic 35–74; PULSE 108–155; RESP 16–24; TEMP 98.1–101.3; O2SAT 93–96
[~2017-06-23] VITALS: Ht 170.2 cm; Wt 53.0 kg
[2017-06-23] MEDS ORDERED: LORA-392 PO (10:38)
[2017-06-23] MEDS ORDERED: SODIUM CHLOR 0.9% 1000 ML INJ 1,000 ML IV SCH (11:06)
[2017-06-23] MEDS ORDERED: SODIUM CHLORIDE 0.9% FLUSH 10 ML FLUSH IV FLUSH PRN ×2 (11:15→12:30)
[2017-06-23] MEDS ORDERED: ONDANSETRON HCL 4 MG/2 ML VIAL IVP ONE (11:15)
[2017-06-23] MEDS ORDERED: MORPHINE SULFATE 2 MG/ML INJ IV PUSH ONE (11:15)
[2017-06-23 11:19] LABS: BASOPHIL % 1.5 % (0.0-2.0); EOSINOPHIL % 1.6 % (0.0-4.0); HEMATOCRIT 44.8 % (35.0-46.0); HEMOGLOBIN 14.5 GM/DL (11.6-15.3); LYMPH % 37.5 % (9.0-44.0); LYMPHOCYTE # 0.4 TH/MM3 (1.0-4.8); MEAN CELL VOLUME 87.2 FL (80.0-100.0); MEAN CORPUSCULAR HEMOGLOBIN 28.2 PG (27.0-34.0); MEAN CORPUSCULAR HGB CONC 32.4 % (32.0-36.0); MEAN PLATELET VOLUME 7.4 FL (7.0-11.0); MONO % 25.4 % (0.0-8.0); MONOCYTE # 0.3 TH/MM3 (0-0.9); PLATELET COUNT 143 TH/MM3 (150-450); RED BLOOD COUNT 5.14 MIL/MM3 (4.00-5.30); RED CELL DISTRIBUTION WIDTH 12.3 % (11.6-17.2)
--- NOTE | 2017-06-23 11:21 | PD ---
HPI . N/V/D Chief Complaint: GI Complaint Time Seen by Provider: 11:06 Travel History International Travel<30 days: No Contact w/Intl Traveler<30days: No Traveled to known affect area: No History of Present Illness HPI &2 year old female with history of uterine cancer presents to ED for evaluation of multiple episodes of N/V/D for one week. The patient is under the care of [facility] Dr. Jennifer Liriano; she has recently received a port with first chemotherapy one week ago; yesterday per oncologist she received an IV bag of fluids for dehydration however she has continued to not tolerating PO intake with multiple episodes of N/V/D; she is taking Zofran at home with temporary relief. She denies having fevers, chest pain or SOB. She also is complaining of low abd pain which is chronic in nature for her. Modifying Factors: None Associated Signs & Symptoms: Nausea, vomiting, diarrhea, general weakness Risk Factors: Chemotherapy, gynecological cancer PFSH Past Medical History Depression: Yes Cancer: Yes (STG 2-3 UTERINE CA november 2016) Cardiovascular Problems: No Chemotherapy: Yes Diabetes: No Endocrine: No Gastrointestinal Disorders: No GERD: Yes Genitourinary: No Hepatitis: Yes (HEP B ) Hiatal Hernia: No Immune Disorder: No Musculoskeletal: Yes (OSTEOMYLITIS LEFT LEG) Neurologic: No Psychiatric: Yes (DEPRESSION) Reproductive: Yes (STG 2-3 UTERINE CA) Respiratory: No Immunizations Current: No Thyroid Disease: No ?: Not Menopausal: Yes Past Surgical History Abdominal Surgery: No AICD: No Cardiac Surgery: No Ear Surgery: No Endocrine Surgery: No Eye Surgery: No Genitourinary Surgery: No Gynecologic Surgery: Yes (HYSTERECTOMY) Hysterectomy: Yes (total) Joint Replacement: No Oral Surgery: Yes (T/A) Pacemaker: No Thoracic Surgery: No Tonsillectomy: Yes (T & A) Other Surgery: Yes Social History Alcohol Use: Yes (occas. wine) Tobacco Use: No Substance Use: No Allergies-Medications (Allergen,Severity, Reaction): Coded Allergies: No Known Allergies (Unverified Allergy, Unknown, 06/23/17) Reported Meds & Prescriptions Reported Meds & Active Scripts Active Reported Ativan (Lorazepam) 0.5 Mg Tab Unknown Dose PO DAILY PRN Hydrocodone-Acetaminophen 10-325 mg Tab 1 Tab PO Q4-6H PRN Review of Systems Except as stated in HPI: all other systems reviewed are Neg Physical Exam Narrative GENERAL: Frail elderly women; no acute distress, appears ill. SKIN: Warm and dry. HEAD: Atraumatic. Normocephalic. EYES: Pupils equal and round. No scleral icterus. No injection or drainage. ENT: No nasal bleeding or discharge. Mucous membranes pink and moist. NECK: Trachea midline. No JVD. Supple. CARDIOVASCULAR: Regular rate and rhythm. RESPIRATORY: No accessory muscle use. Clear to auscultation. Breath sounds equal bilaterally. GASTROINTESTINAL: Abdomen soft, mild tenderness to palpation in low abdomen, well healed surgical incisions, nondistended. Hepatic and splenic margins not palpable. MUSCULOSKELETAL: Extremities without clubbing, cyanosis, or edema. No obvious deformities. NEUROLOGICAL: Awake and alert. No obvious cranial nerve deficits. Motor grossly within normal limits. Five out of 5 muscle strength in the arms and legs. Normal speech. PSYCHIATRIC: Appropriate mood and affect; insight and judgment normal. Data Data Last Documented VS Vital Signs Date Time Temp Pulse Resp B/P (MAP) Pulse Ox O2 Delivery O2 Flow Rate FiO2 06/23/17 11:23 110 20 135/71 (92) 95 06/23/17 10:24 98.1 Orders Orders Complete Blood Count With Diff (06/23/17 11:06) Comprehensive Metabolic Panel (06/23/17 11:06) Lipase (06/23/17 11:06) Iv Access Insert/Monitor (06/23/17 11:06) Ecg Monitoring (06/23/17 11:06) Oximetry (06/23/17 11:06) Ondansetron Inj (Zofran Inj) (06/23/17 11:15) Sodium Chlor 0.9% 1000 Ml Inj (Ns 1000 M (06/23/17 11:06) Sodium Chloride 0.9% Flush (Ns Flush) (06/23/17 11:15) Morphine Inj (Morphine Inj) (06/23/17 11:15) Labs Laboratory Tests Test 06/23/17 11:10 White Blood Count 1.0 TH/MM3 Red Blood Count 5.14 MIL/MM3 Hemoglobin 14.5 GM/DL Hematocrit 44.8 % Mean Corpuscular Volume 87.2 FL Mean Corpuscular Hemoglobin 28.2 PG Mean Corpuscular Hemoglobin Concent 32.4 % Red Cell Distribution Width 12.3 % Platelet Count 143 TH/MM3 Mean Platelet Volume 7.4 FL Neutrophils (%) (Auto) 34.0 % Lymphocytes (%) (Auto) 37.5 % Monocytes (%) (Auto) 25.4 % Eosinophils (%) (Auto) 1.6 % Basophils (%) (Auto) 1.5 % Neutrophils # (Auto) 0.3 TH/MM3 Lymphocytes # (Auto) 0.4 TH/MM3 Monocytes # (Auto) 0.3 TH/MM3 Eosinophils # (Auto) 0.0 TH/MM3 Basophils # (Auto) 0.0 TH/MM3 CBC Comment AUTO DIFF Differential Total Cells Counted 50 Neutrophils % (Manual) 30 % Band Neutrophils % 14 % Lymphocytes % 46 % Monocytes % 10 % Neutrophils # (Manual) 0.4 TH/MM3 Differential Comment FINAL DIFF MANUAL Platelet Estimate NORMAL Platelet Morphology Comment NORMAL Blood Urea Nitrogen 49 MG/DL Creatinine 1.90 MG/DL Random Glucose 137 MG/DL Total Protein 8.4 GM/DL Albumin 3.7 GM/DL Calcium Level 9.4 MG/DL Alkaline Phosphatase 311 U/L Aspartate Amino Transf (AST/SGOT) 25 U/L Alanine Aminotransferase (ALT/SGPT) 44 U/L Total Bilirubin 1.0 MG/DL Sodium Level 130 MEQ/L Potassium Level 3.7 MEQ/L Chloride Level 95 MEQ/L Carbon Dioxide Level 22.9 MEQ/L Anion Gap 12 MEQ/L Estimat Glomerular Filtration Rate 26 ML/MIN Lipase 153 U/L [facility] Medical Decision Making Medical Screen Exam Complete: Yes Emergency Medical Condition: Yes Medical Record Reviewed: Yes Interpretation(s) Laboratory Tests Test 06/23/17 11:10 White Blood Count 1.0 TH/MM3 (4.0-11.0) Platelet Count 143 TH/MM3 (150-450) Monocytes (%) (Auto) 25.4 % (0.0-8.0) Neutrophils # (Auto) 0.3 TH/MM3 (1.8-7.7) Lymphocytes # (Auto) 0.4 TH/MM3 (1.0-4.8) Blood Urea Nitrogen 49 MG/DL (7-18) Creatinine 1.90 MG/DL (0.50-1.00) Random Glucose 137 MG/DL (74-106) Total Protein 8.4 GM/DL (6.4-8.2) Alkaline Phosphatase 311 U/L (45-117) Sodium Level 130 MEQ/L (136-145) Chloride Level 95 MEQ/L (98-107) Estimat Glomerular Filtration Rate 26 ML/MIN (>89) Differential Diagnosis Nausea, vomiting, diarrhea, general weakness: Dehydration versus sepsis versus metabolic issues versus gastroenteritis versus medication side effects Narrative Course Lab work shows significant dehydration with elevated BUN and creatinine. Patient also has significant leukopenia with neutropenia 0.3. Case was discussed with PA for Dr. Liriano, who is currently in the OR, and they would like the patient to be admitted to the main hospital in the oncology unit medically. Case is discussed with Dr. Wright for admission. Diagnosis Primary Impression: Nausea and vomiting Additional Impressions: Dehydration Neutropenia Admitting Information Admitting Physician Requests: Admit Mleissa Perez MD Jun 23, 2017 11:21
[2017-06-23 11:26] LABS: CHLORIDE 95 MEQ/L (98-107); SODIUM (NA) 130 MEQ/L (136-145)
[2017-06-23 11:30] LABS: ALBUMIN 3.7 GM/DL (3.4-5.0); BICARBONATE 22.9 MEQ/L (21.0-32.0); BLOOD UREA NITROGEN 49 MG/DL (7-18); CALCIUM 9.4 MG/DL (8.5-10.1); GLUCOSE,RANDOM 137 MG/DL (74-106)
[2017-06-23 11:33] LABS: ALT (GPT) 44 U/L (10-53); AST (GOT) 25 U/L (15-37); GLOMERULAR FILTRATION RATE 26 ML/MIN (>89)
[2017-06-23 11:34] LABS: AUTOMATED NEUTROPHIL # 0.3 TH/MM3 (1.8-7.7)
[2017-06-23 11:35] LABS: TOTAL PROTEIN 8.4 GM/DL (6.4-8.2)
[2017-06-23 11:36] LABS: ALKALINE PHOSPHATASE 311 U/L (45-117)
[2017-06-23 12:19] LABS: BANDS 14 % (0-6); LYMPHOCYTES 46 % (9-44); MONOCYTES 10 % (0-8); NEUTROPHIL # MANUAL DIFF 0.4 TH/MM3 (1.8-7.7); POLYS (SEG NEUTROPHILS) 30 % (16-70)
[2017-06-23] MEDS ORDERED: NALOXONE HCL 0.4 MG/ML AMP IV PUSH PRN (12:30)
[2017-06-23] MEDS: SODIUM CHLOR 0.9% 1000 ML INJ 1,000 ML IV SCH (15:58)
[2017-06-23] MEDS ORDERED: LEVOFLOXACIN 250 MG PREMIX INJ 50 ML IV SCH (20:00)
[2017-06-23] MEDS: SODIUM CHLORIDE 0.9% FLUSH 10 ML FLUSH IV FLUSH SCH (21:00)
[2017-06-23] MEDS: FILGRASTIM 300 MCG/ML VIAL SQ SCH (22:17)
[2017-06-23] MEDS: ACETAMINOPHEN 325 MG TAB PO PRN (22:57)
[2017-06-23] MEDS ORDERED: SODIUM CHLOR 0.9% 1000 ML INJ 1,000 ML IV ONE (23:30)
--- NOTE | 2017-06-23 23:44 | HHI.PR ---
Addendum to Inpatient Note Addendum Reason: Additional Documentation Additional Information Halicat Note S: Resident team was paged at around 2330 on 06/23/17 for a Halicat due to hypotension. The patient is a 72-year-old female with past history of uterine cancer, reported to have recently started chemotherapy who is now neutropenic. Staff on seen report that the blood pressure was in the 60s and the patient had spiked fever to 101.3 taken axillary. When interviewing the patient the patient was alert and oriented to person place and time, states at that time she had abdominal pain. No nausea, vomiting, sweats, lightheadedness, dizziness, headache, chest pain, palpitations, pain in her left arm or jaw, cough, sputum production, shortness of breath. O: P: 135 RR: 20 BP: 60/35 temperature: 101.3 axillary GENERAL: Elderly cachectic appearing female laying in bed, tired appearing SKIN: Warm and dry. HEAD: Atraumatic. Normocephalic. EYES: Pupils equal and round. No scleral icterus. No injection or drainage. Eyes sunken ENT: No nasal bleeding or discharge. Mucous membranes pink and moist. NECK: Trachea midline. No JVD. CARDIOVASCULAR: Regular rhythm, elevated rate. RESPIRATORY: No accessory muscle use. Clear to auscultation. Breath sounds equal bilaterally. GASTROINTESTINAL: Abdomen soft, non-tender, nondistended. Hepatic and splenic margins not palpable. MUSCULOSKELETAL: Extremities without clubbing, cyanosis, or edema. No obvious deformities. NEUROLOGICAL: Awake and alert. No obvious cranial nerve deficits. Motor grossly within normal limits. Speech quiet, low. PSYCHIATRIC: Appropriate mood and affect; insight and judgment normal. A/P: A 72-year-old female with history of uterine cancer, recently began chemotherapy, currently neutropenic. Acute hypotension and fever. Due to hypotension this fever in neutropenic patient could be considered at a higher risk for complications, guiding our choice for antibiotics. Blood pressure 60/35 -Blood cultures, urinalysis, chest x-ray -2 L fluid bolus -Consider norepinephrine drip if poor response to fluids -Cefepime 2 g every 8 hours -Vancomycin -Transferred to ICU -Consulted fusing line inspector -Consulted infectious disease Case was discussed with on-call fusing line inspector Ankit Spain MD R1 Jun 23, 2017 23:44
[2017-06-23] MEDS ORDERED: CEFEPIME INJ 2,000 MG in SODIUM CHLORIDE 0.9% INJ 100 ML IV ONE (23:45)
[2017-06-24] VITALS (12 sets, daily range): BP systolic 98–118; BP diastolic 60–70; PULSE 95–138; RESP 19–30; TEMP 97.9–99.7; O2SAT 95–100
[2017-06-24] MEDS ORDERED: Vancomycin Consult Pharmacy 1 EA OTHER SCH
[2017-06-24] MEDS ORDERED: PHENYLEPHRINE HCL 10 MG/ML VIAL ONE ×3 (00:01→00:07)
[2017-06-24] MEDS ORDERED: NOREPINEPHRINE INJ 4 MG in SODIUM CHLOR 0.9% 250 ML INJ 246 ML IV PRN (00:15)
[2017-06-24] MEDS ORDERED: TERBUTALINE INJ 1 MG/ML AMP SQ PRN ×2 (00:15→01:15)
[2017-06-24] MEDS ORDERED: SODIUM CHLOR 0.9% 1000 ML INJ 1,000 ML IV ONE ×2 (00:15)
[2017-06-24] MEDS ORDERED: CHLORHEXIDINE GLUCONATE 2 % 1 PACK (2 CLOTHS)(extra cloths) TOPICAL PRN (00:15)
--- NOTE | 2017-06-24 00:16 | PD.CONS ---
[facility] Service Critical Care Medicine Consult Requested By Dr. Liriano Reason for Consult Septic shock Febrile neutropenia Acute metabolic encephalopathy Acute kidney injury Severe dehydration Primary Care Physician Derrick Pérez MD History of Present Illness This is a 72-year-old female with a history of uterine cancer treated with surgery in October 2016 and vaginal brachytherapy. In April 2017, patient was found to have 2 cm nodule in the right abdominal wall. Biopsy showed metastatic endometrial carcinoma. Patient had right IJ port placement on and was started on carboplatin and Taxol chemotherapy about a week ago (Onc Dr. Liriano). Patient presented to the emergency department yesterday with multiple episodes of nausea vomiting and diarrhea since one week. Lab work showed WBC count of 1000 with absolute neutrophil count of 300. Her BUN was 49 and creatinine 1.9. Patient was given IV fluid, was started on IV Levoquin and was admitted to Hospitalist service. A Halicat was called today at midnight for severe hypotension with systolic blood pressure in 60s. Patient had also temperature of 101.3 axillary. IVF NS bolus was started and patient was moved to ICU. I had also instructed the family practice resident who contacted me to start cefepime 2 g IV every 8 hours stat and vancomycin stat I evaluated the patient immediately in the ICU. Patient appears very critically ill. Patient is profoundly hypotensive with systolic blood pressure 45-50. Stat 3 L normal saline IV fluids ordered, also patient started on Levophed to keep map above 65. Stat cultures ordered, and broad-spectrum antibiotics with cefepime and vancomycin. Continue Levaquin for atypical coverage. Infectious diseases consult Review of Systems ROS Limitations: Altered Mental Status Past Family Social History Allergies: Coded Allergies: No Known Allergies (Unverified Allergy, Unknown, 06/23/17) Past Medical History Recurrent endometrial cancer, started on chemo approximately 1 week ago Hepatitis B Herpes Lyme's disease History of Osteomyelitis Previous Radiation Therapy Past Surgical History RIJ port placement 06/13/17 Tonsillectomy Radical Hysterectomy with LN Dissection in 2017 Osteomyelitis left leg in 1955 Reported Medications Lortab Tablet Oral Multivitamin Adult Tablet Oral Tylenol 500 mg Capsule Oral Active Ordered Medications Reviewed Family History Sister of breast cancer Social History No alcohol or tobacco use Physical Exam Vital Signs Vital Signs Date Time Temp Pulse Resp B/P (MAP) Pulse Ox O2 Delivery O2 Flow Rate FiO2 06/23/17 17:06 98.2 126 16 113/63 (80) 95 2/1/18 15:14 06/23/17 14:52 144 20 124/74 (91) 94 06/23/17 12:35 108 20 134/57 (82) 95 06/23/17 11:23 110 20 135/71 (92) 95 06/23/17 11:12 96 06/23/17 10:24 98.1 128 16 91/53 (66) 96 Physical Exam GENERAL: Critically ill frail elderly women, in profound shock SKIN: Warm and dry. HEAD: Atraumatic. Normocephalic. EYES: Pupils equal and round. Severe pallor ENT: No nasal bleeding or discharge. Mucous membranes dry NECK: Trachea midline. No JVD. Supple. CARDIOVASCULAR: Tachycardic heart rate in the 140s. Systolic blood pressure in 50s RESPIRATORY: No accessory muscle use. Clear to auscultation. Breath sounds equal bilaterally. GASTROINTESTINAL: Abdomen soft, nontender well healed surgical incisions. MUSCULOSKELETAL: Extremities without clubbing, cyanosis, or edema. Toes are poorly perfused NEUROLOGICAL: Awake and alert, but lethargic. No obvious cranial nerve deficits. Motor grossly within normal limits though weak Laboratory Laboratory Tests Test 06/23/17 11:10 White Blood Count 1.0 Red Blood Count 5.14 Hemoglobin 14.5 Hematocrit 44.8 Mean Corpuscular Volume 87.2 Mean Corpuscular Hemoglobin 28.2 Mean Corpuscular Hemoglobin Concent 32.4 Red Cell Distribution Width 12.3 Platelet Count 143 Mean Platelet Volume 7.4 Neutrophils (%) (Auto) 34.0 Lymphocytes (%) (Auto) 37.5 Monocytes (%) (Auto) 25.4 Eosinophils (%) (Auto) 1.6 Basophils (%) (Auto) 1.5 Neutrophils # (Auto) 0.3 Lymphocytes # (Auto) 0.4 Monocytes # (Auto) 0.3 Eosinophils # (Auto) 0.0 Basophils # (Auto) 0.0 CBC Comment AUTO DIFF Differential Total Cells Counted 50 Neutrophils % (Manual) 30 Band Neutrophils % 14 Lymphocytes % 46 Monocytes % 10 Neutrophils # (Manual) 0.4 Differential Comment FINAL DIFF MANUAL Platelet Estimate NORMAL Platelet Morphology Comment NORMAL Blood Urea Nitrogen 49 Creatinine 1.90 Random Glucose 137 Total Protein 8.4 Albumin 3.7 Calcium Level 9.4 Alkaline Phosphatase 311 Aspartate Amino Transf (AST/SGOT) 25 Alanine Aminotransferase (ALT/SGPT) 44 Total Bilirubin 1.0 Sodium Level 130 Potassium Level 3.7 Chloride Level 95 Carbon Dioxide Level 22.9 Anion Gap 12 Estimat Glomerular Filtration Rate 26 Lipase 153 Date/Time Source Procedure Growth Status 06/23/17 12:30 Nasal Washing Influenza Types A,B Antigen ([facility]ATOSHA) - Final NEGATIVE FOR FLU A AND B ANTIGEN.... Complete Result Diagram: 06/23/17 1110 06/23/17 1110 Imaging Chest x-ray did not show any acute infiltrates Septic Shock Reassessment Septic shock perfusion: reassessment completed Assessment and Plan Assessment and Plan ASSESSMENT: Septic shock Febrile neutropenia Acute metabolic encephalopathy Acute kidney injury Severe dehydration Severe metabolic acidosis Recurrent endometrial cancer on recent chemotherapy History of hepatitis B PLAN: NEURO: - Minimize sedation - Metabolic encephalopathy secondary to sepsis RESP: - Nasal cannula oxygen to keep oxygen saturation above 90% - DuoNeb every 6 hours when necessary - Chest x-ray did not show any acute infiltrates CV: - Normal saline IV fluids 3L bolus and 150 ml per hour - Levophed and Trip-Synephrine to keep map above 65 - Stress dose steroids if needed - Lactic acid pending GI: - Nothing by mouth except meds. IV famotidine : - Acute kidney failure secondary to severe dehydration and ATN due to sepsis - Monitor renal function closely. Place Valdez catheter. - Continue aggressive fluid hydration as above - Bicarbonate 2 Amps given ID: - Send sputum blood and urine cultures - Cefepime 2 g IV every 8 hours. Vancomycin 1 g now and pharmacy to dose - Continue previously started Levaquin - ID consult HEME: - Recently started on carboplatin and Taxol chemotherapy for recurrent endometrial cancer - Neutropenia secondary to recent chemotherapy - Continue Neupogen per oncology ENDO: - Electrolyte replacement per protocol PROPH: - Bilateral lower extremity SCDs. Avoid chemical DVT prophylaxis at this time due to anticipated drop in platelet count - IV famotidine for GI prophylaxis LINES: - Right IJ port accessed. Continue to use peripheral IVs CC time 55 min Code Status Full Megan Redmond MD Jun 24, 2017 00:16
--- NOTE | 2017-06-24 00:41 | RADRPT ---
EXAM DATE/TIME: 06/24/2017 00:06 [facility] COMPARISON: No previous studies available for comparison. INDICATIONS : Fever and shortness of breath. MEDICAL HISTORY : Uterine carcinoma. SURGICAL HISTORY : Infusaport. ENCOUNTER: Initial ACUITY: 1 day PAIN SCORE: Non-responsive. LOCATION: chest FINDINGS: Right sided fidelia catheter is noted and the tip overlies the SVC. The lungs are clear. Cardiomegaly. Aortic calcification. Osseous structures are intact. CONCLUSION: No acute disease. Nakul Hill MD on June 24, 2017 at 0:38 Board Certified Radiologist. This report was verified electronically.
[2017-06-24 01:00] LABS: AMORPHOUS SEDIMENT, URINE RARE; BILIRUBIN, URINE NEG (NEG); BLOOD, URINE LARGE (NEG); GLUCOSE,URINE TRACE mg/dL (NEG); HYALINE CAST, URINE 4 /lpf (RARE); KETONE, URINE TRACE mg/dL (NEG); MUCUS URINE FEW /lpf (OCC); NITRITE,URINE NEG (NEG); PH, URINE 5.5 (5.0-8.5); SQUAMOUS EPITHELIAL CELL URINE 3 /hpf (0-5); URINE COLOR DARK-YELLOW (YELLW/STRAW); URINE LEUKOCYTE ESTERASE NEG (NEG)
[2017-06-24] MEDS: SODIUM CHLOR 0.9% 1000 ML INJ 1,000 ML IV SCH ×4 (01:02→19:18)
[2017-06-24] MEDS: CEFEPIME INJ 2,000 MG in SODIUM CHLORIDE 0.9% INJ 100 ML IV SCH ×2 (01:05→07:49)
[2017-06-24] MEDS: CHLORHEXIDINE GLUCONATE 2 % 1 PACK (2 CLOTHS)(taper/protocol) TOPICAL SCH (01:06)
[2017-06-24] MEDS ORDERED: PHENYLEPHRINE INJ 80 MG in DEXTROSE 5% IN WATE 500 ML INJ 492 ML IV PRN ×2 (01:15)
[2017-06-24] MEDS ORDERED: RESP: ALBUTEROL 2.5 MG/IPRATROPIUM 0.5 MG NEB (PRN) NEB (01:15)
[2017-06-24] MEDS ORDERED: SODIUM BICARBONATE 8.4% INJ 50 MEQ/50 ML SYR IV PUSH ONE (01:15)
[2017-06-24 01:35] LABS: HEMATOCRIT 32.2 % (35.0-46.0); HEMOGLOBIN 10.6 GM/DL (11.6-15.3); MEAN CELL VOLUME 87.6 FL (80.0-100.0); MEAN CORPUSCULAR HEMOGLOBIN 28.8 PG (27.0-34.0); MEAN CORPUSCULAR HGB CONC 32.9 % (32.0-36.0); MEAN PLATELET VOLUME 8.2 FL (7.0-11.0); PLATELET COUNT 86 TH/MM3 (150-450); RED BLOOD COUNT 3.67 MIL/MM3 (4.00-5.30); RED CELL DISTRIBUTION WIDTH 12.6 % (11.6-17.2); WHITE BLOOD COUNT 0.6 TH/MM3 (4.0-11.0)
[2017-06-24 01:49] LABS: ALBUMIN 2.3 GM/DL (3.4-5.0); BICARBONATE 18.3 MEQ/L (21.0-32.0); CALCIUM 6.9 MG/DL (8.5-10.1); MAGNESIUM 1.7 MG/DL (1.5-2.5)
[2017-06-24 01:53] LABS: CALCIUM-PROTEIN CORRECTED 7.8 MG/DL (8.5-10.1); TOTAL BILIRUBIN ADULT 0.9 MG/DL (0.2-1.0); TOTAL PROTEIN 5.3 GM/DL (6.4-8.2)
[2017-06-24] MEDS ORDERED: VANCOMYCIN INJ 1,400 MG in SODIUM CHLORID 0.9% 500 ML INJ 500 ML IV ONE (02:00)
[2017-06-24 02:05] LABS: BANDS 36 % (0-6); LYMPHOCYTES 16 % (9-44); METAMYELOCYTES 12 % (0-1); MONOCYTES 20 % (0-8); NEUTROPHIL # MANUAL DIFF 0.4 TH/MM3 (1.8-7.7); POLYS (SEG NEUTROPHILS) 16 % (16-70)
[2017-06-24] MEDS ORDERED: POTASSIUM CHLORIDE 20 MEQ CONTROLLED RELEASE TAB PO SCH (02:15)
[2017-06-24] MEDS: POTASSIUM CHLOR 20 MEQ PREMIX 100 ML IV SCH ×4 (03:12→17:55)
[2017-06-24] MEDS: FAMOTIDINE 20 MG/2 ML VIAL IV PUSH SCH ×2 (03:13→13:38)
[2017-06-24] MEDS: NOREPINEPHRINE INJ 4 MG in SODIUM CHLOR 0.9% 250 ML INJ 246 ML IV PRN ×2 (04:45→10:11)
[2017-06-24] MEDS: ACETAMINOPHEN 325 MG TAB PO PRN (08:21)
[2017-06-24] MEDS: ONDANSETRON HCL 4 MG/2 ML VIAL IVP PRN ×2 (08:21→16:59)
[2017-06-24] MEDS: SODIUM CHLORIDE 0.9% FLUSH 10 ML FLUSH IV FLUSH SCH ×2 (08:22→21:09)
--- NOTE | 2017-06-24 09:34 | RADRPT ---
EXAM DATE/TIME: 06/24/2017 08:47 [facility] COMPARISON: CT ABDOMEN & PELVIS W CONTRAST, June 06, 2017, 13:48. EXTERNAL COMPARISON : [facility], CT ABDOMEN & PELVIS W/ & W/O CONTRAST, March 28, 2017 , November 04, 2016. INDICATIONS : Renal failure. MEDICAL HISTORY : Gastroesophageal reflux disease. Hepatitis B. Uterine cancer. Osteomylitis le ft leg. Depression. SURGICAL HISTORY : Tonsillectomy. Hysterectomy. Adenoidectomy. Chemotherapy. ENCOUNTER: Initial ACUITY: 1 day PAIN SCORE: 0/10 LOCATION: Bilateral flank MEASUREMENTS: RIGHT KIDNEY: 10.2 x 4.0 x 4.2 cm LEFT KIDNEY: 11.0 x 5.0 x 4.0 cm FINDINGS: RIGHT KIDNEY: Renal cortex is normal in thickness and echotexture. Subtle prominence of the omi l pelvis. No hydronephrosis, stone, or mass. LEFT KIDNEY: Renal cortex is normal in thickness and echotexture. No hydronephrosis, stone, or m ass. BLADDER: Decompressed secondary to Valdez catheter. CONCLUSION: 1. No evidence for obstructive uropathy. Roger Schuler MD on June 24, 2017 at 9:27 Board Certified Radiologist. This report was verified electronically.
[2017-06-24] MEDS: FILGRASTIM 300 MCG/ML VIAL SQ SCH (10:10)
--- NOTE | 2017-06-24 10:17 | MB ---
cc: MELISSA PEREZ MD, BRAD A. MD JOHN, SINOJ K. MD FARMER, DANNY M. M.D. MOLPUS, KELLY L. MD ROUSE, JACOB M.D. DATE OF CONSULTATION 06/24/[address] Ankit Spain and Dr. Melissa Perez. REASON FOR CONSULTATION 1. Recurrent endometrial cancer. 2. Chemotherapy-induced neutropenia. 3. Nausea, vomiting, diarrhea, dehydration, electrolyte abnormalities, failure to thrive. HISTORY OF PRESENT ILLNESS This is a 72-year-old female recently diagnosed with recurrent endometrial cancer. Tissue confirmation was by removing an abdominal wall nodule that was positive for recurrent disease. 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 She was originally diagnosed as stage IB, grade 2 with risk factors. She underwent postoperative vaginal brachytherapy and did well until recently. She was evaluated two days prior to admission where her labs were satisfactory. White count was 5, creatinine approximately 0.6. Her oral intake and decreased due to some GI symptoms and she was given IV fluid as an outpatient in the oncology treatment center. However, over the next 12-24 hours her vomiting continued, her diarrhea worsened. She does not believe she had a fever at home and no one else in her house was sick with any known illness. Because of her worsening condition she presented to the emergency room, was found to be profoundly dehydrated, neutropenic, not febrile at that time with elevated creatinine and electrolyte abnormalities. She was admitted to the hospital, transferred to [facility]. During the night she had a significant hypotensive episode and required more intensive resuscitation and she was transferred to the medical intensive care unit. Her findings are reviewed by me. She is seen and counseled and examined by me in conjunction with our nurse practitioner (Estella Esparza). I agree with her findings, assessment and plan of care. PAST MEDICAL HISTORY As outlined in the chart and reviewed. PAST SURGICAL HISTORY, MEDICATIONS, FAMILY HISTORY, SOCIAL HISTORY, ALLERGIES Are as reviewed with nothing further to add. As noted above recent in her history was biopsy confirmation of recurrent disease and imaging suggesting intraperitoneal carcinomatosis. Accordingly, she was started on her first cycle of line-1 Taxol and carboplatin chemotherapy. Both Taxol and carboplatin were dose reduced by 20% to assess for tolerance and response in an effort to try to minimize side-effects. Despite this by post-chemotherapy day #7 she had a rapid and substantial anna for chemotherapy such that on admission her white count was 1.0 with an absolute neutrophil count of 300. She was hemoconcentrated as her hemoglobin and hematocrit were 14.5 and 44.8. Electrolytes on admission were such that a BUN and creatinine were 49 and 1.90. Chest x-ray showed no acute disease. Blood cultures have been drawn and are pending. She is negative for influenza A or B antigen. PHYSICAL EXAMINATION VITAL SIGNS: Maximum temperature at 10:30 last night was 101.3. She is currently afebrile. Her antibiotic coverage has been brought in. She is on Levaquin, vancomycin and cephalosporin. Pulse 126-155, respirations 16-24, blood pressure low during the night at 48/28, currently 113/70. Her pulse has improved recently from 102-111. O2 saturations on 2 liters are 99-100%. GENERAL: She is alert and oriented x3. She does not recall details of how she even got to the hospital or events last night. She seems to be understanding, asking me appropriate questions and conversing clearly this morning. Overall in general she just appears to feel poorly with decreased performance status but at this time in no acute distress. HEENT: Her mucous membranes are dry. Her skin is warm. Pupils are equal, round and reactive to light. LUNGS: Clear bilaterally. Mild rales at the bases. CARDIOVASCULAR: Rapid regular rate and rhythm. ABDOMEN: Her abdomen is nonacute. There is some discomfort on palpation in the mid lower abdomen but no rebound or guarding. There is a subtle fullness in the epigastrium. She is healed well from recent abdominal wall excision. BACK: Without CVA tenderness or spinal point tenderness. EXTREMITIES: With trace edema. No palpable cords. Neurovascular intact. DISCUSSION Time is spent in discussion with her, reviewing the findings in her case to date. I am sorry that she is feeling poorly. I explained that her feeling poorly is at least in part directly or indirectly related to chemotherapy treatment for her underlying illness and her resistance is somewhat low due to the underlying illness, further reduced because of the anna from chemotherapy. Whether or not she had a viral illness that worsened this as manifesting with her nausea, vomiting and diarrhea is uncertain. We know that can be a side effect of chemotherapy but it is uncommon to have significant diarrhea related to Taxol and carboplatin. Nevertheless, with subsequent treatments will need to reevaluate and make adjustments so that there is not recurrence of these problems. I explained that there is a period of time that it takes for the body to rebound and she will likely feel poorly and weak until the white count normalizes at which time will start to see clinical improvement. In the interim with supportive care, IV fluids, correction of electrolytes, antibiotics and ongoing measures will try to minimize her symptoms until she recovers. I am grateful for the excellent care from Medicine and Intensive Care services. Discussion ensued. Questions were answered. She expressed good understanding. ASSESSMENT 1. Recurrent stage IB endometrial cancer. 2. Post chemotherapy day #8, status post line-1, cycle-1 Taxol plus carboplatin with 20% dose reduction. 3. Admitted now with febrile neutropenia manifesting as hypotension. 4. Nausea, vomiting, diarrhea, associated profound dehydration, altered renal function and electrolyte abnormalities. 5. Extensive discussion. PLAN 1. Continue present management as recommended by Medicine and Intensive Medical delivery specialist. 2. From an oncology standpoint we initiated antibiotics yesterday given her neutropenia prior to febrile episode and the antibiotic coverage has now been broadened. Blood cultures have been obtained and the results are pending. 3. We initiated Neupogen daily injection in an effort to try to shorten the duration and severity of the chemotherapy-induced anna. 4. Continue neutropenic precautions and isolation until absolute neutrophil count goes at least above 500. Thank you for the consultation. Thank you for the care. We will follow along. MD KIT Tubbs/NISHI /8:44 AM /9:35 AM
--- NOTE | 2017-06-24 10:25 | PD.CONS ---
HPI Service Nephrology Consult Requested By Dr. Redmond Reason for Consult Acute renal failure Primary Care Physician Derrick Pérez MD History of Present Illness Patient is a 72-year-old white female with history of uterine cancer status post surgery and had vaginal brachytherapy, she was found to have abdominal spot and biopsy showed recurrent endometrial cancer and she had a port placement underwent chemotherapy with Taxol and carboplatin after which she got nausea, vomiting and diarrhea her condition deteriorated she felt weak tired lethargic and had abdominal pain, she came in with these complaints and found to have severe pancytopenia, her creatinine was 1.9 which is progress to 3, she was hypotensive and she was transferred to ICU getting IV fluids and vasopressors along with antibiotic Cefepime. Review of Systems Constitutional: COMPLAINS OF: Fatigue, Fever Gastrointestinal: COMPLAINS OF: Abdominal pain, Diarrhea, Nausea, Anorexia Musculoskeletal: COMPLAINS OF: Joint pain Neurologic: COMPLAINS OF: Abnormal gait Psychiatric: COMPLAINS OF: Anxiety Past Family Social History Allergies: Coded Allergies: No Known Allergies (Unverified Allergy, Unknown, 06/23/17) Past Medical History Recurrent endometrial cancer, started on chemo approximately 1 week ago Hepatitis B Herpes Lyme's disease History of Osteomyelitis Previous Radiation Therapy Past Surgical History RIJ port placement 06/13/17 Tonsillectomy Radical Hysterectomy with LN Dissection in 2017 Osteomyelitis left leg in 1955 Reported Medications Reported Meds & Active Scripts Active Reported Ativan (Lorazepam) 0.5 Mg Tab Unknown Dose PO DAILY PRN Hydrocodone-Acetaminophen 10-325 mg Tab 1 Tab PO Q4-6H PRN Active Ordered Medications Current Medications Medications (Trade) Dose Ordered Sig/Vida Route Start Time Stop Time Status Last Admin Sodium Chloride 1,000 ml @ 150 mls/hr Q6H40M IV 06/23/17 12:23 06/24/17 03:13 (NS Flush) 2 ml UNSCH PRN IV FLUSH 06/23/17 12:30 (NS Flush) 2 ml BID IV FLUSH 06/23/17 21:00 06/24/17 08:22 (Tylenol) 650 mg Q4H PRN PO 06/23/17 12:30 06/24/17 08:21 (Zofran Inj) 4 mg Q6H PRN IVP 06/23/17 12:30 06/24/17 08:21 (Narcan Inj) 0.4 mg UNSCH PRN IV PUSH 06/23/17 12:30 (Neupogen Inj) 300 mcg DAILY SQ 06/23/17 20:00 07/02/17 19:59 06/23/17 22:17 Levofloxacin/ Dextrose 50 ml @ 50 mls/hr Q24H IV 06/23/17 20:00 06/29/17 19:59 06/23/17 22:11 Cefepime HCl 2000 mg/Sodium Chloride 100 ml @ 200 mls/hr Q8H IV 06/24/17 00:00 06/24/17 07:49 Pharmacy Profile Note 0 ml @ 0 mls/hr UNSCH OTHER 06/24/17 00:00 Miscellaneous Information Patient in critical care unit? Ass... Q361D .XX 06/24/17 00:15 (Chlorhexidine 2% Cloth) 3 pack DAILY@04 TOPICAL 06/24/17 04:00 06/28/17 04:01 06/24/17 01:06 (Chlorhexidine 2% Cloth) 3 pack UNSCH PRN TOPICAL 06/24/17 00:15 06/29/17 00:11 (Duoneb Neb) 1 ampule Q2HR NEB PRN NEB 06/24/17 01:15 (Pepcid Inj) 20 mg Q12H IV PUSH 06/24/17 02:00 06/24/17 03:13 Norepinephrine Bitartrate 4 mg/ Sodium Chloride 250 ml @ 7.5 mls/hr TITRATE PRN IV 06/24/17 01:15 06/24/17 04:45 Phenylephrine HCl 80 mg/Dextrose 500 ml @ 15 mls/hr TITRATE PRN IV 06/24/17 01:15 (Brethine Inj) 1 mg UNSCH PRN SQ 06/24/17 01:15 Family History Sister from breast cancer Social History Denies smoking or alcohol Physical Exam Vital Signs Vital Signs Date Time Temp Pulse Resp B/P (MAP) Pulse Ox O2 Delivery O2 Flow Rate FiO2 06/24/17 08:00 98.6 105 22 113/70 (84) 06/24/17 08:00 105 06/24/17 07:00 99 Nasal Cannula 2.00 06/24/17 06:00 106 06/24/17 04:45 102 90/57 06/24/17 04:00 97.9 105 20 100/60 (73) 100 06/24/17 04:00 101 06/24/17 02:00 111 06/24/17 01:07 146 48/28 06/24/17 00:00 99.7 138 30 100/60 (73) 95 06/24/17 00:00 138 06/24/17 00:00 99 Nasal Cannula 2.00 06/23/17 22:30 101.3 155 24 60/35 (43) 93 06/23/17 17:06 98.2 126 16 113/63 (80) 95 06/23/17 15:14 06/23/17 14:52 144 20 124/74 (91) 94 06/23/17 12:35 108 20 134/57 (82) 95 06/23/17 11:23 110 20 135/71 (92) 95 06/23/17 11:12 96 06/23/17 10:24 98.1 128 16 91/53 (66) 96 Physical Exam GENERAL: Well-nourished, well-developed patient. SKIN: Warm and dry. HEAD: Normocephalic. EYES: No scleral icterus. No injection or drainage. NECK: Supple, trachea midline. No JVD or lymphadenopathy. CARDIOVASCULAR: Tachycardia. RESPIRATORY: Breath sounds equal bilaterally. No accessory muscle use. GASTROINTESTINAL: Abdomen -tender, nondistended. EXTREMITIES: No cyanosis, or edema. NEUROLOGICAL: Awake, alert, and oriented x 3. Non-focal. Laboratory Laboratory Tests Test 06/23/17 11:10 06/23/17 23:57 06/24/17 00:28 06/24/17 00:30 White Blood Count 1.0 Red Blood Count 5.14 Hemoglobin 14.5 Hematocrit 44.8 Mean Corpuscular Volume 87.2 Mean Corpuscular Hemoglobin 28.2 Mean Corpuscular Hemoglobin Concent 32.4 Red Cell Distribution Width 12.3 Platelet Count 143 Mean Platelet Volume 7.4 Neutrophils (%) (Auto) 34.0 Lymphocytes (%) (Auto) 37.5 Monocytes (%) (Auto) 25.4 Eosinophils (%) (Auto) 1.6 Basophils (%) (Auto) 1.5 Neutrophils # (Auto) 0.3 Lymphocytes # (Auto) 0.4 Monocytes # (Auto) 0.3 Eosinophils # (Auto) 0.0 Basophils # (Auto) 0.0 CBC Comment AUTO DIFF Differential Total Cells Counted 50 Neutrophils % (Manual) 30 Band Neutrophils % 14 Lymphocytes % 46 Monocytes % 10 Neutrophils # (Manual) 0.4 Differential Comment FINAL DIFF MANUAL Platelet Estimate NORMAL Platelet Morphology Comment NORMAL Blood Urea Nitrogen 49 Creatinine 1.90 Random Glucose 137 Total Protein 8.4 Albumin 3.7 Calcium Level 9.4 Alkaline Phosphatase 311 Aspartate Amino Transf (AST/SGOT) 25 Alanine Aminotransferase (ALT/SGPT) 44 Total Bilirubin 1.0 Sodium Level 130 Potassium Level 3.7 Chloride Level 95 Carbon Dioxide Level 22.9 Anion Gap 12 Estimat Glomerular Filtration Rate 26 Lipase 153 Nasal Screen MRSA (PCR) MRSA NOT DETECTED Blood Gas Puncture Site RT RADIAL Blood Gas Patient Temperature 98.6 Blood Gas HCO3 16 Blood Gas Base Excess -8.6 Blood Gas Oxygen Saturation 96 Arterial Blood pH 7.36 Arterial Blood Partial Pressure CO2 28 Arterial Blood Partial Pressure O2 140 Arterial Blood Oxygen Content 15.2 Arterial Blood Carboxyhemoglobin 0.2 Arterial Blood Methemoglobin 2.1 Blood Gas Hemoglobin 11.0 Oxygen Delivery Device NASAL CANNULA Blood Gas Liter Flow 2 Urine Color DARK-YELLOW Urine Turbidity HAZY Urine pH 5.5 Urine Specific [place] 1.018 Urine Protein 30 Urine Glucose (UA) TRACE Urine Ketones TRACE Urine Occult Blood LARGE Urine Nitrite NEG Urine Bilirubin NEG Urine Urobilinogen LESS THAN 2.0 Urine Leukocyte Esterase NEG Urine RBC 10 Urine WBC 6 Urine Squamous Epithelial Cells 3 Urine Amorphous Sediment RARE Urine Hyaline Casts 4 Urine Mucus FEW Microscopic Urinalysis Comment CATH-CULT NOT IND Test 06/24/17 01:10 06/24/17 03:25 White Blood Count 0.6 Red Blood Count 3.67 Hemoglobin 10.6 Hematocrit 32.2 Mean Corpuscular Volume 87.6 Mean Corpuscular Hemoglobin 28.8 Mean Corpuscular Hemoglobin Concent 32.9 Red Cell Distribution Width 12.6 Platelet Count 86 Mean Platelet Volume 8.2 CBC Comment AUTO DIFF Differential Total Cells Counted 25 Neutrophils % (Manual) 16 Band Neutrophils % 36 Lymphocytes % 16 Monocytes % 20 Neutrophils # (Manual) 0.4 Metamyelocytes 12 Differential Comment FINAL DIFF MANUAL Platelet Estimate LOW Platelet Morphology Comment NORMAL Blood Urea Nitrogen 58 Creatinine 3.00 Random Glucose 120 Total Protein 5.3 Albumin 2.3 Calcium Level 6.9 Magnesium Level 1.7 Alkaline Phosphatase 176 Aspartate Amino Transf (AST/SGOT) 19 Alanine Aminotransferase (ALT/SGPT) 24 Total Bilirubin 0.9 Sodium Level 142 Potassium Level 2.4 Chloride Level 110 Carbon Dioxide Level 18.3 Anion Gap 14 Estimat Glomerular Filtration Rate 15 Lactic Acid Level 4.5 Protein Corrected Calcium 7.8 Urine Color Urine Turbidity Urine pH Urine Specific [place] Urine Protein Urine Glucose (UA) Urine Ketones Urine Occult Blood Urine Nitrite Urine Bilirubin Urine Urobilinogen Urine Leukocyte Esterase Urine RBC Urine WBC Urine Squamous Epithelial Cells Urine Bacteria Microscopic Urinalysis Comment Date/Time Source Procedure Growth Status 06/24/17 01:10 Blood Peripheral Aerobic Blood Culture Pending Received 06/24/17 01:10 Blood Peripheral Anaerobic Blood Culture Pending Received 06/23/17 12:30 Nasal Washing Influenza Types A,B Antigen (LATOSHA) - Final NEGATIVE FOR FLU A AND B ANTIGEN.... Complete 06/24/17 00:30 Urine Catheterized Urine Urine Culture Pending Received Result Diagram: 06/24/17 0110 06/24/17 0110 Imaging Last Impressions Renal Ultrasound 06/24/17 0000 Signed Impressions: Service Date/Time: Saturday, June 24, 2017 08:47 - CONCLUSION: 1. No evidence for obstructive uropathy. Roger Schuler MD Chest X-Ray 06/23/17 0000 Signed Impressions: Service Date/Time: Saturday, June 24, 2017 00:06 - CONCLUSION: No acute disease. Nakul Hill MD Assessment and Plan Problem List: (1) Acute renal failure ICD Codes: N17.9 - Acute kidney failure, unspecified Plan: Patient has underlying sepsis, hypotension she is on vasopressors and IV fluids she may have underlying ATN Continue supportive care Avoid nephrotoxins Avoid the dye studies (2) Thrombocytopenia ICD Codes: D69.6 - Thrombocytopenia, unspecified Plan: Platelets are progressively low due to underlying sepsis, check LDH, reticulocyte count to rule out any hemolysis (3) Diarrhea ICD Codes: R19.7 - Diarrhea, unspecified Plan: Follow cultures (4) Dehydration ICD Codes: E86.0 - Dehydration Status: Acute Plan: Normal saline at 150 cc an hour (5) Neutropenia ICD Codes: D70.9 - Neutropenia, unspecified Status: Acute Plan: B and C of 400 getting Neupogen (6) Endometrial ca ICD Codes: C54.1 - Malignant neoplasm of endometrium Plan: Stage IV (7) Hypokalemia ICD Codes: E87.6 - Hypokalemia Plan: Replaced Gianfranco Gomes MD Jun 24, 2017 10:25
--- NOTE | 2017-06-24 11:19 | PD.ID.CON ---
History of Present Illness Service ID Consult Requested By Reason for Consult Evaluation and Mment of Severe Sepsis in a neutropenic patient. Primary Care Physician Derrick Pérez MD Diagnoses: History of Present Illness is a 72-year-old female recently diagnosed with recurrent endometrial cancer undergoing chemotherapy with Taxol and carboplatin using a port in her right chest wall. Reportedly in the abdominal wall nodule was sent for tissue confirmation and is positive for recurrent disease. 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 Patient reports that approximately 2 days prior to admission she had labs and this these were satisfactory. Her WBC count was 5 her creatinine was 0.6. Her oral intake had decreased due to some GI symptoms and she was given IV fluids as outpatient in the oncology treatment center. Upon further questioning patient reports that she has had nausea vomiting and most importantly just watery diarrhea for several months now which has now gotten worse in the last week. She endorses subjective fevers at home. She denies any sick contacts. Due to worsening in her clinical condition she presented to the emergency room was found to be profoundly dehydrated, neutropenic and was not febrile at that time. She was admitted to the hospital, transferred to [facility]. During the night she had a significant hypotensive episode and required more intensive resuscitation and she was transferred to the medical intensive care unit. Sepsis workup has been initiated and stool C. difficile was sent is now negative. Several other stool studies are pending. Infectious disease is consulted for evaluation and management of severe sepsis in a patient with neutropenia. Review of Systems Constitutional: COMPLAINS OF: Fatigue, Chills, Change in appetite, DENIES: Diaphoretic episodes, Fever, Weight gain, Weight loss, Dizziness, Night Sweats Endocrine: DENIES: Abnorml menstrual pattern, Heat/cold intolerance, Polydipsia , Polyuria, Polyphagia Eyes: DENIES: Blurred vision, Diplopia, Eye inflammation, Eye pain, Vision loss , Photosensitivity, Double Vision Ears, nose, mouth, throat: DENIES: Tinnitus, Hearing loss, Vertigo, Nasal discharge, Oral lesions, Throat pain, Hoarseness, Ear Pain, Running Nose, Epistaxis, Sinus Pain, Toothache, Odynophagia Respiratory: DENIES: Apneas, Cough, Snoring, Wheezing, Hemoptysis, Sputum production, Shortness of breath Cardiovascular: DENIES: Chest pain, Palpitations, Syncope, Dyspnea on Exertion , PND, Lower Extremity Edema, Orthopnea, Claudication Gastrointestinal: COMPLAINS OF: Diarrhea, Nausea, Vomiting, DENIES: Abdominal pain, Black stools, Bloody stools, Constipation, Difficulty Swallowing, Anorexia Genitourinary: DENIES: Abnormal vaginal bleeding, Dysmenorrhea, Dyspareunia, Sexual dysfunction, Urinary frequency, Urinary incontinence, Urgency, Hematuria , Dysuria, Nocturia, Vaginal discharge Musculoskeletal: DENIES: Joint pain, Muscle aches, Stiffness, Joint Swelling, Back pain, Neck pain Integumentary: DENIES: Abnormal pigmentation, Pruritus, Rash, Nail changes, Breast masses, Breast skin changes, Nipple discharge Hematologic/lymphatic: DENIES: Bruising, Lymphadenopathy Immunologic/allergic: DENIES: Eczema, Urticaria Neurologic: DENIES: Abnormal gait, Headache, Localized weakness, Paresthesias, Seizures, Speech Problems, Tremor, Poor Balance Psychiatric: DENIES: Anxiety, Confusion, Mood changes, Depression, Hallucinations, Agitation, Suicidal Ideation, Homicidal Ideation, Delusions Except as stated in HPI: all other systems reviewed are Neg Past Family Social History Allergies: Coded Allergies: No Known Allergies (Unverified Allergy, Unknown, 06/23/17) Past Medical History Recurrent endometrial cancer, started on chemo approximately 1 week ago Hepatitis B Herpes Lyme's disease History of Osteomyelitis Previous Radiation Therapy Past Surgical History RIJ port placement 06/13/17 Tonsillectomy Radical Hysterectomy with LN Dissection in 2017 Osteomyelitis left leg in 1955 Reported Medications Reported Meds & Active Scripts Active Reported Ativan (Lorazepam) 0.5 Mg Tab Unknown Dose PO DAILY PRN Hydrocodone-Acetaminophen 10-325 mg Tab 1 Tab PO Q4-6H PRN Active Ordered Medications Current Medications Medications (Trade) Dose Ordered Sig/Vida Route Start Time Stop Time Status Last Admin Sodium Chloride 1,000 ml @ 150 mls/hr Q6H40M IV 06/23/17 12:23 06/24/17 13:39 (NS Flush) 2 ml UNSCH PRN IV FLUSH 06/23/17 12:30 (NS Flush) 2 ml BID IV FLUSH 06/23/17 21:00 06/24/17 08:22 (Tylenol) 650 mg Q4H PRN PO 06/23/17 12:30 06/24/17 08:21 (Zofran Inj) 4 mg Q6H PRN IVP 06/23/17 12:30 06/24/17 16:59 (Narcan Inj) 0.4 mg UNSCH PRN IV PUSH 06/23/17 12:30 (Neupogen Inj) 300 mcg DAILY SQ 06/23/17 20:00 07/02/17 19:59 06/24/17 10:10 Pharmacy Profile Note 0 ml @ 0 mls/hr UNSCH OTHER 06/24/17 00:00 Miscellaneous Information Patient in critical care unit? Ass... Q361D .XX 06/24/17 00:15 (Chlorhexidine 2% Cloth) 3 pack DAILY@04 TOPICAL 06/24/17 04:00 06/28/17 04:01 06/24/17 01:06 (Chlorhexidine 2% Cloth) 3 pack UNSCH PRN TOPICAL 06/24/17 00:15 06/29/17 00:11 (Duoneb Neb) 1 ampule Q2HR NEB PRN NEB 06/24/17 01:15 Norepinephrine Bitartrate 4 mg/ Sodium Chloride 250 ml @ 7.5 mls/hr TITRATE PRN IV 06/24/17 01:15 06/24/17 10:11 (Brethine Inj) 1 mg UNSCH PRN SQ 06/24/17 01:15 (VANCOMYCIN for oral use only) 500 mg QID PO 06/24/17 13:00 06/24/17 17:55 Cefepime HCl 2000 mg/Sodium Chloride 100 ml @ 200 mls/hr Q24H IV 06/25/17 08:00 (Pepcid Inj) 10 mg Q12H IV PUSH 06/25/17 02:00 Levofloxacin/ Dextrose 50 ml @ 50 mls/hr Q48H IV 06/25/17 20:00 06/29/17 19:59 (Roxicodone) 5 mg Q4H PRN PO 06/24/17 16:15 06/24/17 17:56 Family History Sister of breast cancer Social History No alcohol or tobacco use Physical Exam Vital Signs Vital Signs Date Time Temp Pulse Resp B/P (MAP) Pulse Ox O2 Delivery O2 Flow Rate FiO2 06/24/17 10:44 Nasal Cannula 2.00 06/24/17 10:11 104 108/60 06/24/17 10:00 120 06/24/17 08:00 98.6 105 22 113/70 (84) 06/24/17 08:00 105 06/24/17 07:00 99 Nasal Cannula 2.00 06/24/17 06:00 106 06/24/17 04:45 102 90/57 06/24/17 04:00 97.9 105 20 100/60 (73) 100 06/24/17 04:00 101 06/24/17 02:00 111 06/24/17 01:07 146 48/28 06/24/17 00:00 99.7 138 30 100/60 (73) 95 06/24/17 00:00 138 06/24/17 00:00 99 Nasal Cannula 2.00 06/23/17 22:30 101.3 155 24 60/35 (43) 93 06/23/17 17:06 98.2 126 16 113/63 (80) 95 06/23/17 15:14 06/23/17 14:52 144 20 124/74 (91) 94 06/23/17 12:35 108 20 134/57 (82) 95 06/23/17 11:23 110 20 135/71 (92) 95 Physical Exam GENERAL: Thin built poorly nourished patient, in no apparent distress. SKIN: No rashes. HEAD: Atraumatic. Normocephalic. No temporal or scalp tenderness. EYES: Pupils equal round and reactive. Extraocular motions intact. No scleral icterus. No injection or drainage. ENT: Nose without bleeding, purulent drainage or septal hematoma. Throat without erythema, tonsillar hypertrophy or exudate. Uvula midline. Airway patent. NECK: Trachea midline. Supple, nontender, no meningeal signs. CARDIOVASCULAR: Heart sounds audible. Port site with no evidence of infection. RESPIRATORY: Clear to auscultation. Breath sounds equal bilaterally. No wheezes , rales, or rhonchi. GASTROINTESTINAL: Abdomen soft, diffuse tenderness, no guarding no rigidity. MUSCULOSKELETAL: Extremities without clubbing, cyanosis, or edema. No joint tenderness, effusion, or edema noted. No calf tenderness. Negative Homans sign bilaterally. NEUROLOGICAL: Awake and alert. Nonfocal exam. Psych cooperative IV line sites with no evidence of infection. Laboratory Laboratory Tests Test 06/23/17 23:57 06/24/17 00:28 06/24/17 00:30 06/24/17 01:10 Nasal Screen MRSA (PCR) MRSA NOT DETECTED Blood Gas Puncture Site RT RADIAL Blood Gas Patient Temperature 98.6 Blood Gas HCO3 16 Blood Gas Base Excess -8.6 Blood Gas Oxygen Saturation 96 Arterial Blood pH 7.36 Arterial Blood Partial Pressure CO2 28 Arterial Blood Partial Pressure O2 140 Arterial Blood Oxygen Content 15.2 Arterial Blood Carboxyhemoglobin 0.2 Arterial Blood Methemoglobin 2.1 Blood Gas Hemoglobin 11.0 Oxygen Delivery Device NASAL CANNULA Blood Gas Liter Flow 2 Urine Color DARK-YELLOW Urine Turbidity HAZY Urine pH 5.5 Urine Specific [place] 1.018 Urine Protein 30 Urine Glucose (UA) TRACE Urine Ketones TRACE Urine Occult Blood LARGE Urine Nitrite NEG Urine Bilirubin NEG Urine Urobilinogen LESS THAN 2.0 Urine Leukocyte Esterase NEG Urine RBC 10 Urine WBC 6 Urine Squamous Epithelial Cells 3 Urine Amorphous Sediment RARE Urine Hyaline Casts 4 Urine Mucus FEW Microscopic Urinalysis Comment CATH-CULT NOT IND White Blood Count 0.6 Red Blood Count 3.67 Hemoglobin 10.6 Hematocrit 32.2 Mean Corpuscular Volume 87.6 Mean Corpuscular Hemoglobin 28.8 Mean Corpuscular Hemoglobin Concent 32.9 Red Cell Distribution Width 12.6 Platelet Count 86 Mean Platelet Volume 8.2 CBC Comment AUTO DIFF Differential Total Cells Counted 25 Neutrophils % (Manual) 16 Band Neutrophils % 36 Lymphocytes % 16 Monocytes % 20 Neutrophils # (Manual) 0.4 Metamyelocytes 12 Differential Comment FINAL DIFF MANUAL Platelet Estimate LOW Platelet Morphology Comment NORMAL Blood Urea Nitrogen 58 Creatinine 3.00 Random Glucose 120 Total Protein 5.3 Albumin 2.3 Calcium Level 6.9 Magnesium Level 1.7 Alkaline Phosphatase 176 Aspartate Amino Transf (AST/SGOT) 19 Alanine Aminotransferase (ALT/SGPT) 24 Total Bilirubin 0.9 Sodium Level 142 Potassium Level 2.4 Chloride Level 110 Carbon Dioxide Level 18.3 Anion Gap 14 Estimat Glomerular Filtration Rate 15 Lactic Acid Level 4.5 Protein Corrected Calcium 7.8 Test 06/24/17 03:25 Urine Color Urine Turbidity Urine pH Urine Specific [place] Urine Protein Urine Glucose (UA) Urine Ketones Urine Occult Blood Urine Nitrite Urine Bilirubin Urine Urobilinogen Urine Leukocyte Esterase Urine RBC Urine WBC Urine Squamous Epithelial Cells Urine Bacteria Microscopic Urinalysis Comment Date/Time Source Procedure Growth Status 06/24/17 01:10 Blood Peripheral Aerobic Blood Culture Pending Received 06/24/17 01:10 Blood Peripheral Anaerobic Blood Culture Pending Received 06/23/17 12:30 Nasal Washing Influenza Types A,B Antigen (LATOSHA) - Final NEGATIVE FOR FLU A AND B ANTIGEN.... Complete 06/24/17 00:30 Urine Catheterized Urine Urine Culture Pending Received Result Diagram: 06/24/17 0110 06/24/17 0110 Imaging Last Impressions Renal Ultrasound 06/24/17 0000 Signed Impressions: Service Date/Time: Saturday, June 24, 2017 08:47 - CONCLUSION: 1. No evidence for obstructive uropathy. Roger Schuler MD Chest X-Ray 06/23/17 0000 Signed Impressions: Service Date/Time: Saturday, June 24, 2017 00:06 - CONCLUSION: No acute disease. Nakul Hill MD Assessment and Plan Assessment and Plan Severe sepsis present on admission. Immune compromised host Hypotension: Dehydration, sepsis Diarrhea present on admission: C. difficile negative, possible viral etiology but off note patient was on chemotherapy recently. Possible chemotherapy-induced diarrhea versus mucositis Neutropenic sepsis Port in place Endometrial cancer with carcinomatosis Recently received Taxol and carboplatin Recommendations: Continue cefepime IV while neutropenic Continue vancomycin IV for now. Will discontinue after blood cultures negative for 48 hours. Continue Levaquin IV for now. Discontinue oral vancomycin which was started empirically for C. difficile. C. difficile PCR negative. Stool studies sent Stool C. difficile PCR) reviewed negative Follow cultures Follow clinically to cover for me this weekend. Arlette Carty MD Jun 24, 2017 11:19
[2017-06-24 12:45] LABS: AMORPHOUS SEDIMENT, URINE FEW; BACTERIA, URINE OCC /hpf; BILIRUBIN, URINE NEG (NEG); BLOOD, URINE LARGE (NEG); GLUCOSE,URINE 70 mg/dL (NEG); HYALINE CAST, URINE 30 /lpf (RARE); KETONE, URINE NEG (NEG); MUCUS URINE MANY /lpf (OCC); NITRITE,URINE NEG (NEG); PH, URINE 5.5 (5.0-8.5); SQUAMOUS EPITHELIAL CELL URINE 3 /hpf (0-5); URINE COLOR YELLOW (YELLW/STRAW); URINE LEUKOCYTE ESTERASE NEG (NEG)
[2017-06-24] MEDS: VANCOMYCIN 500 MG VIAL (FOR ORAL USE ONLY) PO SCH ×2 (13:38→17:55)
--- NOTE | 2017-06-24 13:54 | PD.CONS ---
History of Present Illness Service nuclear pharmacist/onc Consult Requested By Dr. Wright Reason for Consult pt known to you endometrial cancer Primary Care Physician Derrick Pérez MD Diagnoses: (1) Endometrial ca (2) Acute renal failure (3) Dehydration (4) Neutropenia (5) Nausea and vomiting History of Present Illness This is a 72 year old female who present to [place] ER for nausea and vomiting, abdominal pain and generalized weakness. Currently she is being treated with Taxol and Carboplatin cycle #1 given on 06/16/17 for recurrent endometrial cancer. She is on a dose reduction of 20% for each drug d/t her frail nature and past radiation. During her evaluation in the ER, she was found to be neutropenic with ANC of 300, but afebrile. She had dehydration with elevated creat at 1.9, despite IV hydration in the infusion center the day before her ER visit. The ER physician contacted our office and [facility]. During the evening she was found to be hypotensive and had spiked a fever. Halicat was called and she was transferred to ICU with septic shock. Aggressive rehydration was started along with vasopressors to keep MAP>65. The patient had cultures sent, stool, blood and urine. She was started on additional antibiotics. Review of Systems Constitutional: COMPLAINS OF: Fatigue, Change in appetite Gastrointestinal: COMPLAINS OF: Abdominal pain, Diarrhea, Nausea, Vomiting Past Family Social History Allergies: Coded Allergies: No Known Allergies (Unverified Allergy, Unknown, 06/23/17) Past Medical History recurrent endometrial cancer depression Past Surgical History RA lap hysterectomy resection of abdominal wall mass Tonsillectomy Reported Medications per emr Active Ordered Medications Current Medications Ondansetron HCl (Zofran Inj) 4 mg ONCE ONCE IVP Last administered on 06/23/17at 11:19; Start 06/23/17 at 11:15; Stop 06/23/17 at 11:16; Status DC Sodium Chloride 1,000 ml @ 1,000 mls/hr Q1H IV Last administered on 06/23/17at 11:19; Start 06/23/17 at 11:06; Stop 06/23/17 at 12:05; Status DC Sodium Chloride (NS Flush) 2 ml UNSCH PRN IV FLUSH FLUSH AFTER USING IV ACCESS ; Start 06/23/17 at 11:15; Stop 06/23/17 at 13:22; Status DC Morphine Sulfate (Morphine Inj) 2 mg ONCE ONCE IV PUSH Last administered on 06/23/17at 11:19; Start 06/23/17 at 11:15; Stop 06/23/17 at 11:16; Status DC Sodium Chloride 1,000 ml @ 150 mls/hr Q6H40M IV Last administered on 06/24/17at 03:13; Start 06/23/17 at 12:23 Sodium Chloride (NS Flush) 2 ml UNSCH PRN IV FLUSH FLUSH AFTER USING IV ACCESS ; Start 06/23/17 at 12:30 Sodium Chloride (NS Flush) 2 ml BID IV FLUSH Last administered on 06/24/17at 08: 22; Start 06/23/17 at 21:00 Acetaminophen (Tylenol) 650 mg Q4H PRN PO TEMP > 100.4 Last administered on 06/24at 08:21; Start 06/23/17 at 12:30 Ondansetron HCl (Zofran Inj) 4 mg Q6H PRN IVP NAUSEA OR VOMITING Last administered on 06/24/17at 08:21; Start 06/23/17 at 12:30 Naloxone HCl (Narcan Inj) 0.4 mg UNSCH PRN IV PUSH SEE LABEL COMMENTS; Start at 12:30 Filgrastim (Neupogen Inj) 300 mcg DAILY SQ Last administered on 06/24/17at 10:10 ; Start 06/23/17 at 20:00; Stop 07/02/17 at 19:59 Levofloxacin/ Dextrose 50 ml @ 50 mls/hr Q24H IV Last administered on 06/23/17at 22:11; Start 06/23/17 at 20:00; Stop 06/29/17 at 19:59 Sodium Chloride 1,000 ml @ 999 mls/hr BOLUS ONCE IV Last administered on at 23:30; Start 06/23/17 at 23:30; Stop 06/24/17 at 00:30; Status DC Cefepime HCl 2000 mg/Sodium Chloride 100 ml @ 200 mls/hr ONCE ONCE IV ; Start 06/23/17 at 23:45; Stop 06/24/17 at 00:14; Status Cancel Cefepime HCl 2000 mg/Sodium Chloride 100 ml @ 200 mls/hr Q8H IV Last administered on 06/24/17at 07:49; Start 06/24/17 at 00:00 Pharmacy Profile Note 0 ml @ 0 mls/hr UNSCH OTHER ; Start 06/24/17 at 00:00 Phenylephrine HCl (Neosynephrine Inj) 10 mg STK-MED ONCE .ROUTE ; Start 06/24/17 at 00:01; Stop 06/24/17 at 00:02; Status DC Phenylephrine HCl (Neosynephrine Inj) 10 mg STK-MED ONCE .ROUTE ; Start 06/24/17 at 00:06; Stop 06/24/17 at 00:07; Status DC Vancomycin HCl 1400 mg/Sodium Chloride 514 ml @ 250 mls/hr ONCE ONCE IV Last administered on 06/24/17at 01:15; Start 06/24/17 at 02:00; Stop 06/24/17 at 04:08; Status DC Phenylephrine HCl (Neosynephrine Inj) 10 mg STK-MED ONCE .ROUTE ; Start 06/24/17 at 00:07; Stop 06/24/17 at 00:08; Status DC Miscellaneous Information Patient in critical care unit? Ass... [id number] .XX ; Start 06/24/17 at 00:15 Chlorhexidine Gluconate (Chlorhexidine 2% Cloth) 3 pack DAILY@04 TOPICAL Last administered on 06/24/17at 01:06; Start 06/24/17 at 04:00; Stop 06/28/17 at 04:01 Chlorhexidine Gluconate (Chlorhexidine 2% Cloth) 3 pack UNSCH PRN TOPICAL HYGIENIC CARE; Start 06/24/17 at 00:15; Stop 06/29/17 at 00:11 Sodium Chloride 1,000 ml @ 999 mls/hr BOLUS ONCE IV Last administered on at 01:06; Start 06/24/17 at 00:15; Stop 06/24/17 at 01:15; Status DC Sodium Chloride 1,000 ml @ 999 mls/hr BOLUS ONCE IV Last administered on at 01:06; Start 06/24/17 at 00:15; Stop 06/24/17 at 01:15; Status DC Norepinephrine Bitartrate 4 mg/ Sodium Chloride 250 ml @ 7.5 mls/hr TITRATE PRN IV Blood pressure management Last administered on 06/24/17at 01:07; Start 06/24 at 00:15; Stop 06/24/17 at 01:11; Status DC Terbutaline Sulfate (Brethine Inj) 1 mg UNSCH PRN SQ For Extravasation; Start 06/24/17 at 00:15; Stop 06/24/17 at 01:17; Status DC Sodium Bicarbonate (Sodium Bicarbonate 8.4% Inj) 100 meq ONCE ONCE IV PUSH Last administered on 06/24/17at 01:06; Start 06/24/17 at 01:15; Stop 06/24/17 at 01: 16; Status DC Albuterol/ Ipratropium (Duoneb Neb) 1 ampule Q2HR NEB PRN NEB SHORTNESS OF BREATH; Start 06/24/17 at 01:15 Famotidine (Pepcid Inj) 20 mg Q12H IV PUSH Last administered on 06/24/17at 03:13 ; Start 06/24/17 at 02:00 Norepinephrine Bitartrate 4 mg/ Sodium Chloride 250 ml @ 7.5 mls/hr TITRATE PRN IV Blood pressure management Last administered on 06/24/17at 10:11; Start 06/24 at 01:15 Phenylephrine HCl 80 mg/Dextrose 500 ml @ 15 mls/hr TITRATE PRN IV Blood pressure Management; Start 06/24/17 at 01:15 Terbutaline Sulfate (Brethine Inj) 1 mg UNSCH PRN SQ For Extravasation; Start 06/24/17 at 01:15 Potassium Chloride 100 ml @ 50 mls/hr Q2H IV Last administered on 06/24/17at 05: 21; Start 06/24/17 at 02:30; Stop 06/24/17 at 06:29; Status DC Potassium Chloride (KCl) 40 meq NOW PO Last administered on 06/24/17at 03:13; Start 06/24/17 at 02:15; Stop 06/24/17 at 04:00; Status DC Vancomycin HCl (VANCOMYCIN for oral use only) 500 mg QID PO ; Start 06/24/17 at 13:00 Social History lives with social alcohol (wine) denies tobacco or illegal drug use Physical Exam Vital Signs Vital Signs Date Time Temp Pulse Resp B/P (MAP) Pulse Ox O2 Delivery O2 Flow Rate FiO2 06/24/17 12:14 95 111/64 06/24/17 12:00 99.0 95 24 111/64 (80) 06/24/17 12:00 105 06/24/17 10:44 Nasal Cannula 2.00 06/24/17 10:11 104 108/60 06/24/17 10:00 120 06/24/17 08:00 98.6 105 22 113/70 (84) 06/24/17 08:00 105 06/24/17 07:00 99 Nasal Cannula 2.00 06/24/17 06:00 106 06/24/17 04:45 102 90/57 06/24/17 04:00 97.9 105 20 100/60 (73) 100 06/24/17 04:00 101 06/24/17 02:00 111 06/24/17 01:07 146 48/28 06/24/17 00:00 99.7 138 30 100/60 (73) 95 06/24/17 00:00 138 06/24/17 00:00 99 Nasal Cannula 2.00 06/23/17 22:30 101.3 155 24 60/35 (43) 93 06/23/17 17:06 98.2 126 16 113/63 (80) 95 06/23/17 15:14 06/23/17 14:52 144 20 124/74 (91) 94 Physical Exam GENERAL: cachetic and frail, ill appearing SKIN: No rashes, ecchymoses or lesions. Cool and dry. HEAD: Atraumatic. Normocephalic. No temporal or scalp tenderness. EYES: Pupils equal round and reactive. Extraocular motions intact. No scleral icterus. No injection or drainage. CARDIOVASCULAR: increased rate, rhythm without murmurs, gallops, or rubs. RESPIRATORY: Clear to auscultation. Breath sounds equal bilaterally. No wheezes , rales, or rhonchi. MUSCULOSKELETAL: Extremities without clubbing, cyanosis, or edema. NEUROLOGICAL: Awake and alert. Normal speech. answering questions appropriately Laboratory Laboratory Tests Test 06/23/17 23:57 06/24/17 00:28 06/24/17 00:30 06/24/17 01:10 Nasal Screen MRSA (PCR) MRSA NOT DETECTED Blood Gas Puncture Site RT RADIAL Blood Gas Patient Temperature 98.6 Blood Gas HCO3 16 Blood Gas Base Excess -8.6 Blood Gas Oxygen Saturation 96 Arterial Blood pH 7.36 Arterial Blood Partial Pressure CO2 28 Arterial Blood Partial Pressure O2 140 Arterial Blood Oxygen Content 15.2 Arterial Blood Carboxyhemoglobin 0.2 Arterial Blood Methemoglobin 2.1 Blood Gas Hemoglobin 11.0 Oxygen Delivery Device NASAL CANNULA Blood Gas Liter Flow 2 Urine Color DARK-YELLOW Urine Turbidity HAZY Urine pH 5.5 Urine Specific Ellery 1.018 Urine Protein 30 Urine Glucose (UA) TRACE Urine Ketones TRACE Urine Occult Blood LARGE Urine Nitrite NEG Urine Bilirubin NEG Urine Urobilinogen LESS THAN 2.0 Urine Leukocyte Esterase NEG Urine RBC 10 Urine WBC 6 Urine Squamous Epithelial Cells 3 Urine Amorphous Sediment RARE Urine Hyaline Casts 4 Urine Mucus FEW Microscopic Urinalysis Comment CATH-CULT NOT IND White Blood Count 0.6 Red Blood Count 3.67 Hemoglobin 10.6 Hematocrit 32.2 Mean Corpuscular Volume 87.6 Mean Corpuscular Hemoglobin 28.8 Mean Corpuscular Hemoglobin Concent 32.9 Red Cell Distribution Width 12.6 Platelet Count 86 Mean Platelet Volume 8.2 CBC Comment AUTO DIFF Differential Total Cells Counted 25 Neutrophils % (Manual) 16 Band Neutrophils % 36 Lymphocytes % 16 Monocytes % 20 Neutrophils # (Manual) 0.4 Metamyelocytes 12 Differential Comment FINAL DIFF MANUAL Platelet Estimate LOW Platelet Morphology Comment NORMAL Blood Urea Nitrogen 58 Creatinine 3.00 Random Glucose 120 Total Protein 5.3 Albumin 2.3 Calcium Level 6.9 Magnesium Level 1.7 Alkaline Phosphatase 176 Aspartate Amino Transf (AST/SGOT) 19 Alanine Aminotransferase (ALT/SGPT) 24 Total Bilirubin 0.9 Sodium Level 142 Potassium Level 2.4 Chloride Level 110 Carbon Dioxide Level 18.3 Anion Gap 14 Estimat Glomerular Filtration Rate 15 Lactic Acid Level 4.5 Protein Corrected Calcium 7.8 Test 06/24/17 03:25 06/24/17 08:05 Urine Color YELLOW Urine Turbidity CLOUDY Urine pH 5.5 Urine Specific Ellery 1.018 Urine Protein 100 Urine Glucose (UA) 70 Urine Ketones NEG Urine Occult Blood LARGE Urine Nitrite NEG Urine Bilirubin NEG Urine Urobilinogen LESS THAN 2.0 Urine Leukocyte Esterase NEG Urine RBC Urine WBC 1 Urine Squamous Epithelial Cells 3 Urine Bacteria OCC Microscopic Urinalysis Comment CATH-CULTURE IND Stool C. difficile Toxin (PCR) NEGATIVE Stl C. difficile Toxin Epiderm 027 PRESUMPTIVE NEGATIVE Urine Amorphous Sediment FEW Urine Hyaline Casts 30 Urine Granular Casts 47 Urine Mucus MANY Date/Time Source Procedure Growth Status 06/24/17 01:10 Blood Peripheral Aerobic Blood Culture Pending Received 06/24/17 01:10 Blood Peripheral Anaerobic Blood Culture Pending Received 06/24/17 08:05 Stool Stool Cyclospora Exam Pending Received 06/24/17 08:05 Stool Stool Cryptosporidium Exam Pending Received 06/24/17 08:05 Stool Stool Stool Pus (LATOSHA) Pending Received 06/24/17 08:05 Stool Stool Giardia Antigen (LATOSHA) Pending Received 06/23/17 12:30 Nasal Washing Influenza Types A,B Antigen (LATOSHA) - Final NEGATIVE FOR FLU A AND B ANTIGEN.... Complete 06/24/17 08:05 Urine Catheterized Urine Urine Culture Pending Received Result Diagram: 06/24/17 0110 06/24/17 0110 Imaging Last Impressions Renal Ultrasound 06/24/17 0000 Signed Impressions: Service Date/Time: Saturday, June 24, 2017 08:47 - CONCLUSION: 1. No evidence for obstructive uropathy. Roger Schuler MD Chest X-Ray 06/23/17 0000 Signed Impressions: Service Date/Time: Saturday, June 24, 2017 00:06 - CONCLUSION: No acute disease. Nakul Hill MD Assessment and Plan Problem List: (1) Dehydration ICD Codes: E86.0 - Dehydration Status: Acute Plan: rehydration with IVF monitor I/O continue to monitor creat (2) Neutropenia ICD Codes: D70.9 - Neutropenia, unspecified Status: Acute Plan: daily Neupogen will receive Neulasta with subsequent treatment continue to monitor labs closely IV antibiotics Levaquin, cefepime, and Vancomycin per patternmaker helper cultures pending (3) Acute renal failure ICD Codes: N17.9 - Acute kidney failure, unspecified Plan: r/t dehydration, septic shock nephrology consulted continue IV hydration per patternmaker helper monitor labs (4) Endometrial ca ICD Codes: C54.1 - Malignant neoplasm of endometrium Status: Chronic Plan: currently on Taxol and Carboplatin for recurrent disease s/p cycle 1 on 06/16/17 patient hit her anna quickly therefore subsequent treatments will have to be reevaluated...she will receive Neulasta after treatment and Dr. Liriano may consider single agent treatment Problem Qualifiers (1) Neutropenia: Qualified Codes: D70.1 - Agranulocytosis secondary to cancer chemotherapy; T45.1X5A - Adverse effect of antineoplastic and immunosuppressive drugs, initial encounter (2) Nausea and vomiting: Estella Esparza Jun 24, 2017 13:54
[2017-06-24 15:35] LABS: AUTOMATED NEUTROPHIL # 0.9 TH/MM3 (1.8-7.7); BASOPHIL % 0.5 % (0.0-2.0); EOSINOPHIL % 0.6 % (0.0-4.0); HEMATOCRIT 34.8 % (35.0-46.0); HEMOGLOBIN 11.8 GM/DL (11.6-15.3); LYMPH % 23.6 % (9.0-44.0); LYMPHOCYTE # 0.4 TH/MM3 (1.0-4.8); MEAN CELL VOLUME 85.9 FL (80.0-100.0); MEAN CORPUSCULAR HEMOGLOBIN 29.2 PG (27.0-34.0); MEAN PLATELET VOLUME 8.2 FL (7.0-11.0); MONO % 22.6 % (0.0-8.0); MONOCYTE # 0.4 TH/MM3 (0-0.9); NEUT % 52.7 % (16.0-70.0); PLATELET COUNT 101 TH/MM3 (150-450); RED BLOOD COUNT 4.05 MIL/MM3 (4.00-5.30); RED CELL DISTRIBUTION WIDTH 12.5 % (11.6-17.2); WHITE BLOOD COUNT 1.6 TH/MM3 (4.0-11.0)
[2017-06-24 16:04] LABS: BICARBONATE 20.9 MEQ/L (21.0-32.0); CALCIUM 7.3 MG/DL (8.5-10.1); CREATININE 2.05 MG/DL (0.50-1.00)
[2017-06-24 16:17] LABS: TOTAL PROTEIN 5.8 GM/DL (6.4-8.2)
[2017-06-24 16:19] LABS: BANDS 30 % (0-6); LYMPHOCYTES 29 % (9-44); METAMYELOCYTES 11 % (0-1); MONOCYTES 15 % (0-8); MYELOCYTES 1 % (0-0); NEUTROPHIL # MANUAL DIFF 0.9 TH/MM3 (1.8-7.7); POLYS (SEG NEUTROPHILS) 14 % (16-70)
[2017-06-24] MEDS ORDERED: ALBUMIN 5% INJ 500 ML IV ONE (17:00)
[2017-06-24] MEDS ORDERED: CALCIUM GLUCONATE INJ 2 GM in SODIUM CHLORIDE 0.9% INJ 100 ML IV ONE (18:00)
[2017-06-25] VITALS (25 sets, daily range): BP systolic 91–127; BP diastolic 53–82; PULSE 80–104; RESP 15–22; TEMP 98.1–98.6; O2SAT 96–99
[2017-06-25] MEDS: ONDANSETRON HCL 4 MG/2 ML VIAL IVP PRN ×2 (00:11→06:26)
[2017-06-25] MEDS: SODIUM CHLOR 0.9% 1000 ML INJ 1,000 ML IV SCH ×3 (00:15→13:21)
[2017-06-25 02:10] LABS: RANDOM VANCOMYCIN 12.2 COMMENT
[2017-06-25] MEDS: FAMOTIDINE 20 MG/2 ML VIAL IV PUSH SCH ×2 (02:26→13:32)
[2017-06-25] MEDS: NOREPINEPHRINE INJ 4 MG in SODIUM CHLOR 0.9% 250 ML INJ 246 ML IV PRN (02:27)
[2017-06-25] MEDS ORDERED: POTASSIUM CHLORIDE 20 MEQ CONTROLLED RELEASE TAB PO ONE (02:45)
[2017-06-25] MEDS: CHLORHEXIDINE GLUCONATE 2 % 1 PACK (2 CLOTHS)(taper/protocol) TOPICAL SCH (04:00)
[2017-06-25 06:17] LABS: HEMOGLOBIN 10.3 GM/DL (11.6-15.3); MEAN CELL VOLUME 85.2 FL (80.0-100.0); MEAN CORPUSCULAR HEMOGLOBIN 29.3 PG (27.0-34.0); MEAN CORPUSCULAR HGB CONC 34.4 % (32.0-36.0); MEAN PLATELET VOLUME 8.5 FL (7.0-11.0); PLATELET COUNT 93 TH/MM3 (150-450); RED BLOOD COUNT 3.52 MIL/MM3 (4.00-5.30); RED CELL DISTRIBUTION WIDTH 12.8 % (11.6-17.2); WHITE BLOOD COUNT 4.7 TH/MM3 (4.0-11.0)
[2017-06-25 06:44] LABS: BICARBONATE 19.8 MEQ/L (21.0-32.0); CREATININE 1.08 MG/DL (0.50-1.00)
[2017-06-25] MEDS: ACETAMINOPHEN 325 MG TAB PO PRN ×2 (08:33→20:40)
[2017-06-25] MEDS: SODIUM CHLORIDE 0.9% FLUSH 10 ML FLUSH IV FLUSH SCH ×2 (08:33→20:40)
[2017-06-25] MEDS: CEFEPIME INJ 2,000 MG in SODIUM CHLORIDE 0.9% INJ 100 ML IV SCH (08:33)
[2017-06-25] MEDS: FILGRASTIM 300 MCG/ML VIAL SQ SCH (10:33)
--- NOTE | 2017-06-25 10:50 | HHI.IDPN ---
Subjective Subjective Remarks ID COVERAGE is a 72-year-old female recently diagnosed with recurrent endometrial cancer undergoing chemotherapy with Taxol and carboplatin using a port in her right chest wall. Reportedly in the abdominal wall nodule was sent for tissue confirmation and is positive for recurrent disease. 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 Patient reports that approximately 2 days prior to admission she had labs and this these were satisfactory. Her WBC count was 5 her creatinine was 0.6. Her oral intake had decreased due to some GI symptoms and she was given IV fluids as outpatient in the oncology treatment center. Upon further questioning patient reports that she has had nausea vomiting and most importantly just watery diarrhea for several months now which has now gotten worse in the last week. She endorses subjective fevers at home. She denies any sick contacts. Due to worsening in her clinical condition she presented to the emergency room was found to be profoundly dehydrated, neutropenic and was not febrile at that time. She was admitted to the hospital, transferred to [facility]. During the night she had a significant hypotensive episode and required more intensive resuscitation and she was transferred to the medical intensive care unit. Sepsis workup has been initiated and stool C. difficile was sent is now negative. Several other stool studies are pending. Infectious disease is consulted for evaluation and management of severe sepsis in a patient with neutropenia. Notes reviewed Discussed with AUDREY Saldana okay BP better, pressor discontinued today Still having frequent liquid stool No abdominal pain No nausea or vomiting No sores in the mouth Swallowing okay No respiratory complaint Voiding okay C. difficile negative WBC up to 4.7 Cultures are pending Creatinine is better Antibiotics Current Medications Levaquin Cefepime Medications (Trade) Dose Ordered Sig/Vida Route Start Time Stop Time Status Last Admin Sodium Chloride 1,000 ml @ 150 mls/hr Q6H40M IV 06/23/17 12:23 06/25/17 07:11 (NS Flush) 2 ml UNSCH PRN IV FLUSH 06/23/17 12:30 (NS Flush) 2 ml BID IV FLUSH 06/23/17 21:00 06/25/17 08:33 (Tylenol) 650 mg Q4H PRN PO 06/23/17 12:30 06/25/17 08:33 (Zofran Inj) 4 mg Q6H PRN IVP 06/23/17 12:30 06/25/17 06:26 (Narcan Inj) 0.4 mg UNSCH PRN IV PUSH 06/23/17 12:30 (Neupogen Inj) 300 mcg DAILY SQ 06/23/17 20:00 07/02/17 19:59 06/25/17 10:33 Pharmacy Profile Note 0 ml @ 0 mls/hr UNSCH OTHER 06/24/17 00:00 Miscellaneous Information Patient in critical care unit? Ass... [id number] .XX 06/24/17 00:15 (Chlorhexidine 2% Cloth) 3 pack DAILY@04 TOPICAL 06/24/17 04:00 06/28/17 04:01 06/25/17 04:00 (Chlorhexidine 2% Cloth) 3 pack UNSCH PRN TOPICAL 06/24/17 00:15 06/29/17 00:11 (Duoneb Neb) 1 ampule Q2HR NEB PRN NEB 06/24/17 01:15 Norepinephrine Bitartrate 4 mg/ Sodium Chloride 250 ml @ 7.5 mls/hr TITRATE PRN IV 06/24/17 01:15 06/25/17 02:27 (Brethine Inj) 1 mg UNSCH PRN SQ 06/24/17 01:15 Cefepime HCl 2000 mg/Sodium Chloride 100 ml @ 200 mls/hr Q24H IV 06/25/17 08:00 06/25/17 08:33 (Pepcid Inj) 10 mg Q12H IV PUSH 06/25/17 02:00 06/25/17 02:26 Levofloxacin/ Dextrose 50 ml @ 50 mls/hr Q48H IV 06/25/17 20:00 06/29/17 19:59 (Roxicodone) 5 mg Q4H PRN PO 06/24/17 16:15 06/25/17 06:26 Vancomycin/Sodium Chloride 200 ml @ 200 mls/hr ONCE ONCE IV 06/25/17 11:00 06/25/17 11:59 06/25/17 10:33 Lines [id number] right upper chest Past Medical History Recurrent endometrial cancer, started on chemo approximately 1 week ago Hepatitis B Herpes Lyme's disease History of Osteomyelitis Previous Radiation Therapy Past Surgical History RIJ port placement 06/13/17 Tonsillectomy Radical Hysterectomy with LN Dissection in 2017 Osteomyelitis left leg in 1955 Allergies: Coded Allergies: No Known Allergies (Unverified Allergy, Unknown, 06/23/17) Objective . Vital Signs Date Time Temp Pulse Resp B/P (MAP) Pulse Ox O2 Delivery O2 Flow Rate FiO2 06/25/17 10:20 88 06/25/17 10:00 89 06/25/17 09:43 98 06/25/17 09:40 88 15 96/56 (69) 06/25/17 09:20 87 18 99/56 (70) 06/25/17 09:00 91 16 96/58 (71) 97 06/25/17 08:40 96 22 97/69 (78) 98 06/25/17 08:20 100 18 106/65 (79) 97 06/25/17 08:00 98.4 98 18 108/68 (81) 98 06/25/17 08:00 97 06/25/17 06:00 104 06/25/17 05:30 87 99/59 06/25/17 04:30 99 114/68 06/25/17 04:00 99 06/25/17 04:00 98.5 99 16 114/68 (83) 98 06/25/17 03:30 96 101/68 06/25/17 02:27 100 121/70 06/25/17 02:00 98 06/25/17 00:14 101 127/82 06/25/17 00:00 98.6 101 20 127/82 (97) 99 06/25/17 00:00 101 06/24/17 22:00 101 06/24/17 20:00 97.9 101 19 118/66 (83) 99 06/24/17 20:00 101 06/24/17 19:40 100 129/69 06/24/17 19:31 97 130/72 06/24/17 19:00 100 Nasal Cannula 2.00 06/24/17 18:00 97 06/24/17 16:00 106 06/24/17 16:00 98.1 98 20 98/63 (75) 06/24/17 15:53 105 114/70 06/24/17 14:00 106 06/24/17 12:14 95 111/64 06/24/17 12:00 99.0 95 24 111/64 (80) 06/24/17 12:00 105 06/24/17 10:44 Nasal Cannula 2.00 06/25/17 06/25/17 06/26/17 15:00 23:00 07:00 Intake Total 1100 ml Balance 1100 ml IV Total 1100 ml . Laboratory Tests Test 06/23/17 11:10 06/24/17 01:10 06/24/17 15:00 06/25/17 05:00 White Blood Count 1.0 TH/MM3 0.6 TH/MM3 1.6 TH/MM3 4.7 TH/MM3 Red Blood Count 5.14 MIL/MM3 3.67 MIL/MM3 4.05 MIL/MM3 3.52 MIL/MM3 Hemoglobin 14.5 GM/DL 10.6 GM/DL 11.8 GM/DL 10.3 GM/DL Hematocrit 44.8 % 32.2 % 34.8 % 30.0 % Mean Corpuscular Volume 87.2 FL 87.6 FL 85.9 FL 85.2 FL Mean Corpuscular Hemoglobin 28.2 PG 28.8 PG 29.2 PG 29.3 PG Mean Corpuscular Hemoglobin Concent 32.4 % 32.9 % 34.0 % 34.4 % Red Cell Distribution Width 12.3 % 12.6 % 12.5 % 12.8 % Platelet Count 143 TH/MM3 86 TH/MM3 101 TH/MM3 93 TH/MM3 Mean Platelet Volume 7.4 FL 8.2 FL 8.2 FL 8.5 FL Neutrophils (%) (Auto) 34.0 % 52.7 % Lymphocytes (%) (Auto) 37.5 % 23.6 % Monocytes (%) (Auto) 25.4 % 22.6 % Eosinophils (%) (Auto) 1.6 % 0.6 % Basophils (%) (Auto) 1.5 % 0.5 % Neutrophils # (Auto) 0.3 TH/MM3 0.9 TH/MM3 Lymphocytes # (Auto) 0.4 TH/MM3 0.4 TH/MM3 Monocytes # (Auto) 0.3 TH/MM3 0.4 TH/MM3 Eosinophils # (Auto) 0.0 TH/MM3 0.0 TH/MM3 Basophils # (Auto) 0.0 TH/MM3 0.0 TH/MM3 CBC Comment AUTO DIFF AUTO DIFF AUTO DIFF Differential Total Cells Counted 50 25 100 Neutrophils % (Manual) 30 % 16 % 14 % Band Neutrophils % 14 % 36 % 30 % Lymphocytes % 46 % 16 % 29 % Monocytes % 10 % 20 % 15 % Neutrophils # (Manual) 0.4 TH/MM3 0.4 TH/MM3 0.9 TH/MM3 Differential Comment FINAL DIFF MANUAL FINAL DIFF MANUAL FINAL DIFF MANUAL Platelet Estimate NORMAL LOW LOW Platelet Morphology Comment NORMAL NORMAL NORMAL Metamyelocytes 12 % 11 % Myelocytes 1 % Red Cell Morphology Comment NORMAL Laboratory Tests Test 06/23/17 11:10 06/24/17 01:10 06/24/17 15:00 06/25/17 01:30 Blood Urea Nitrogen 49 MG/DL 58 MG/DL 60 MG/DL Creatinine 1.90 MG/DL 3.00 MG/DL 2.05 MG/DL Random Glucose 137 MG/DL 120 MG/DL 119 MG/DL Total Protein 8.4 GM/DL 5.3 GM/DL 5.8 GM/DL Albumin 3.7 GM/DL 2.3 GM/DL Calcium Level 9.4 MG/DL 6.9 MG/DL 7.3 MG/DL Alkaline Phosphatase 311 U/L 176 U/L Aspartate Amino Transf (AST/SGOT) 25 U/L 19 U/L Alanine Aminotransferase (ALT/SGPT) 44 U/L 24 U/L Total Bilirubin 1.0 MG/DL 0.9 MG/DL Sodium Level 130 MEQ/L 142 MEQ/L 140 MEQ/L Potassium Level 3.7 MEQ/L 2.4 MEQ/L 3.3 MEQ/L 3.2 MEQ/L Chloride Level 95 MEQ/L 110 MEQ/L 109 MEQ/L Carbon Dioxide Level 22.9 MEQ/L 18.3 MEQ/L 20.9 MEQ/L Anion Gap 12 MEQ/L 14 MEQ/L 10 MEQ/L Estimat Glomerular Filtration Rate 26 ML/MIN 15 ML/MIN 24 ML/MIN Lipase 153 U/L Magnesium Level 1.7 MG/DL Lactic Acid Level 4.5 mmol/L Protein Corrected Calcium 7.8 MG/DL 8.0 MG/DL Test 06/25/17 05:00 Blood Urea Nitrogen 38 MG/DL Creatinine 1.08 MG/DL Random Glucose 85 MG/DL Calcium Level 8.0 MG/DL Sodium Level 141 MEQ/L Potassium Level 3.2 MEQ/L Chloride Level 111 MEQ/L Carbon Dioxide Level 19.8 MEQ/L Anion Gap 10 MEQ/L Estimat Glomerular Filtration Rate 50 ML/MIN Microbiology Date/Time Source Procedure Growth Status 06/24/17 01:10 Blood Peripheral Aerobic Blood Culture Pending Received 06/24/17 01:10 Blood Peripheral Anaerobic Blood Culture Pending Received 06/24/17 01:05 Blood Peripheral Aerobic Blood Culture Pending Received 06/24/17 01:05 Blood Peripheral Anaerobic Blood Culture Pending Received 06/24/17 19:30 Stool Stool Acid Fast Stain Pending Received 06/24/17 19:30 Stool Stool Mycobacterial Culture Pending Received 06/24/17 08:05 Stool Stool Cyclospora Exam Pending Resulted 06/24/17 08:05 Stool Stool Cryptosporidium Exam Pending Resulted 06/24/17 08:05 Stool Stool Stool Pus (LATOSHA) - Final MANY WBC'S Resulted 06/24/17 08:05 Stool Stool Giardia Antigen (LATOSHA) Pending Resulted 06/24/17 08:05 Stool Stool - Final NO ENTERIC PATHOGENS DETECTED BY PCR... Complete 06/24/17 08:05 Stool Stool Rotavirus Antigen - Final NEGATIVE - ROTAVIRUS ANTIGEN IS ABSEN... Complete 06/23/17 12:30 Nasal Washing Influenza Types A,B Antigen (LATOSHA) - Final NEGATIVE FOR FLU A AND B ANTIGEN.... Complete 06/24/17 08:05 Urine Catheterized Urine Urine Culture Pending Received 06/24/17 00:30 Urine Catheterized Urine Urine Culture Pending Received Imaging RADIOLOGY STUDIES/FILMS REVIEWED Renal Ultrasound 06/24/17 0000 Signed Impressions: Service Date/Time: Saturday, June 24, 2017 08:47 - CONCLUSION: 1. No evidence for obstructive uropathy. Roger Schuler MD Chest X-Ray 06/23/17 0000 Signed Impressions: Service Date/Time: Saturday, June 24, 2017 00:06 - CONCLUSION: No acute disease. Nakul Hill MD Physical Exam GENERAL: Thin built poorly nourished patient, awake and alert, NAD SKIN: No rashes. HEAD: Atraumatic. Normocephalic. No temporal or scalp tenderness. EYES: Pupils equal round and reactive. Extraocular motions intact. No scleral icterus. No injection or drainage. ENT: Nose without bleeding, purulent drainage or septal hematoma. Moist oral mucosa, no oral lesions noted. NECK: Trachea midline. Supple, nontender, no meningeal signs. CARDIOVASCULAR: Heart sounds audible. Port site with no evidence of infection. RESPIRATORY: Clear to auscultation. Breath sounds equal bilaterally. No wheezes , rales, or rhonchi. GASTROINTESTINAL: Abdomen soft, very mild tenderness, no guarding no rigidity. Bowel sounds are present and normoactive MUSCULOSKELETAL: Extremities without clubbing, cyanosis, or edema. No joint tenderness, effusion, or edema noted. No calf tenderness. Negative Homans sign bilaterally. NEUROLOGICAL: Awake and alert. Nonfocal exam. Psych cooperative IV line sites with no evidence of infection. Assessment & Plan Remarks Assessment and Plan Severe sepsis present on admission. Shock - off pressors Immune compromised host, S/P cehmo for metastatic endometrial CA Hypotension: Dehydration, sepsis Diarrhea present on admission: C. difficile negative, possible viral etiology but off note patient was on chemotherapy recently. - Possible chemotherapy-induced diarrhea versus mucositis Neutropenic sepsis - _ WBC nor up Port in place Endometrial cancer with carcinomatosis Recently received Taxol and carboplatin Renal failure, likely due to volume - better Recommendations: Continue cefepime IV while neutropenic Continue vancomycin IV for now. Will discontinue after blood cultures negative for 48 hours. Continue Levaquin IV for now. Follow stool studies Follow cultures D/C isolation MOnitor progress D/W RN Explained plan to the patient D/W Isabel Krishna MD Jun 25, 2017 10:50
--- NOTE | 2017-06-25 10:54 | HHI.CCPN ---
Subjective Remarks/Hospital Course Hospital Course: This is a 72-year-old female with a history of uterine cancer treated with surgery in October 2016 and vaginal brachytherapy. In April 2017, patient was found to have 2 cm nodule in the right abdominal wall. Biopsy showed metastatic endometrial carcinoma. Patient had right IJ port placement on and was started on carboplatin and Taxol chemotherapy about a week ago (Onc Dr. Liriano). Patient presented to the emergency department yesterday with multiple episodes of nausea vomiting and diarrhea since one week. Lab work showed WBC count of 1000 with absolute neutrophil count of 300. Her BUN was 49 and creatinine 1.9. Patient was given IV fluid, was started on IV Levoquin and was admitted to Hospitalist service. A Halicat was called today at midnight for severe hypotension with systolic blood pressure in 60s. Patient had also temperature of 101.3 axillary. IVF NS bolus was started and patient was moved to ICU. I had also instructed the family practice resident who contacted me to start cefepime 2 g IV every 8 hours stat and vancomycin stat I evaluated the patient immediately in the ICU. Patient appears very critically ill. Patient is profoundly hypotensive with systolic blood pressure 45-50. Stat 3 L normal saline IV fluids ordered, also patient started on Levophed to keep map above 65. Stat cultures ordered, and broad-spectrum antibiotics with cefepime and vancomycin. Continue Levaquin for atypical coverage. Infectious diseases consult subjective: 2: doing better. weaned off levophed for vasopressor support. cultures still NGTD. Cr improving. stable to transfer out of ICU. hungry. denies other complaints. subjectively feels better. ROS negative. Objective Vital Signs Date Time Temp Pulse Resp B/P (MAP) Pulse Ox O2 Delivery O2 Flow Rate FiO2 06/25/17 10:20 88 06/25/17 09:43 98 06/25/17 09:40 15 96/56 (69) 06/25/17 08:00 98.4 06/24/17 19:00 Nasal Cannula 2.00 Intake and Output 06/25/17 06/25/17 06/26/17 08:00 16:00 00:00 Intake Total 2250 ml 100 ml Output Total 1350 ml Balance 900 ml 100 ml Result Diagram: 06/25/17 0500 06/25/17 0500 Other Results Microbiology Date/Time Source Procedure Growth Status 06/24/17 08:05 Stool Stool - Final NO ENTERIC PATHOGENS DETECTED BY PCR... Complete 06/24/17 08:05 Stool Stool Rotavirus Antigen - Final NEGATIVE - ROTAVIRUS ANTIGEN IS ABSEN... Complete 06/23/17 12:30 Nasal Washing Influenza Types A,B Antigen (LATOSHA) - Final NEGATIVE FOR FLU A AND B ANTIGEN.... Complete Imaging Chest x-ray did not show any acute infiltrates Objective Remarks GENERAL: Critically ill frail elderly women, in profound shock SKIN: Warm and dry. HEAD: Atraumatic. Normocephalic. EYES: Pupils equal and round. Severe pallor ENT: No nasal bleeding or discharge. Mucous membranes dry NECK: Trachea midline. No JVD. Supple. CARDIOVASCULAR: Tachycardic heart rate in the 140s. Systolic blood pressure in 50s RESPIRATORY: No accessory muscle use. Clear to auscultation. Breath sounds equal bilaterally. GASTROINTESTINAL: Abdomen soft, nontender well healed surgical incisions. MUSCULOSKELETAL: Extremities without clubbing, cyanosis, or edema. Toes are poorly perfused NEUROLOGICAL: Awake and alert, but lethargic. No obvious cranial nerve deficits. Motor grossly within normal limits though weak A/P Assessment and Plan ASSESSMENT: Septic shock Febrile neutropenia Acute metabolic encephalopathy - resolved. Acute kidney injury- resolving. Severe dehydration- resolving. Severe metabolic acidosis- resolved. Recurrent endometrial cancer on recent chemotherapy History of hepatitis B PLAN: NEURO: - Minimize sedation - Metabolic encephalopathy secondary to sepsis and has resolved. RESP: - Nasal cannula oxygen to keep oxygen saturation above 90% - DuoNeb every 6 hours when necessary - Chest x-ray did not show any acute infiltrates CV: - sirs response improving. continue telemetry. GI: - advance back diet to neutropenic diet. IV famotidine : - Acute kidney failure secondary to severe dehydration and ATN due to sepsis - Monitor renal function closely. Place Valdez catheter. - Continue aggressive fluid hydration, decrease to 75cc/hr from 150cc/hr. ID: - cultures NGTD. continue to follow up. - Cefepime 2 g IV every 8 hours. Vancomycin 1 g now and pharmacy to dose - Continue previously started Levaquin - ID consult HEME: - Recently started on carboplatin and Taxol chemotherapy for recurrent endometrial cancer - Neutropenia secondary to recent chemotherapy - Continue Neupogen per oncology ENDO: - Electrolyte replacement per protocol PROPH: - Bilateral lower extremity SCDs. Avoid chemical DVT prophylaxis at this time due to anticipated drop in platelet count - IV famotidine for GI prophylaxis LINES: - Right IJ port accessed. Continue to use peripheral IVs Dispo: transfer to step-down unit. consult hospitalists. Pio Jon MD Jun 25, 2017 10:54
[2017-06-25] MEDS ORDERED: VANCOMYCIN 1 GM/200 ML PREMIX IV ONE (11:00)
--- NOTE | 2017-06-25 11:05 | HHI.NPPN ---
Subjective History of Present Illness 72-year-old with a history of uterine cancer with diarrhea and dehydration Review of Systems General Constitutional: Fatigue Objective Data Data 06/25/17 06/26/17 19:00 07:00 Intake Total 1100 ml Balance 1100 ml IV Total 1100 ml Vital Signs Date Time Temp Pulse Resp B/P (MAP) Pulse Ox O2 Delivery O2 Flow Rate FiO2 06/25/17 10:20 88 06/25/17 10:00 89 06/25/17 09:43 98 06/25/17 09:40 88 15 96/56 (69) 06/25/17 09:20 87 18 99/56 (70) 06/25/17 09:00 91 16 96/58 (71) 97 06/25/17 08:40 96 22 97/69 (78) 98 06/25/17 08:20 100 18 106/65 (79) 97 06/25/17 08:00 98.4 98 18 108/68 (81) 98 06/25/17 08:00 97 06/25/17 06:00 104 06/25/17 05:30 87 99/59 06/25/17 04:30 99 114/68 06/25/17 04:00 99 06/25/17 04:00 98.5 99 16 114/68 (83) 98 06/25/17 03:30 96 101/68 06/25/17 02:27 100 121/70 06/25/17 02:00 98 06/25/17 00:14 101 127/82 06/25/17 00:00 98.6 101 20 127/82 (97) 99 06/25/17 00:00 101 06/24/17 22:00 101 06/24/17 20:00 97.9 101 19 118/66 (83) 99 06/24/17 20:00 101 06/24/17 19:40 100 129/69 06/24/17 19:31 97 130/72 06/24/17 19:00 100 Nasal Cannula 2.00 06/24/17 18:00 97 06/24/17 16:00 106 06/24/17 16:00 98.1 98 20 98/63 (75) 06/24/17 15:53 105 114/70 06/24/17 14:00 106 06/24/17 12:14 95 111/64 06/24/17 12:00 99.0 95 24 111/64 (80) 06/24/17 12:00 105 -: 06/25/17 0500 06/25/17 0500 Microbiology 06/24/17 Acid Fast Stain, Received Pending 06/24/17 Mycobacterial Culture, Received Pending Physical Exam General Appearance: Well Developed, Well Nourished Neck Neck Exam: Neck Supple Pulmonary Resp Exam: Clear Bilaterally, Breath Sounds Equal Cardiology CV Exam: Regular, Normal Sinus Rhythm Gastrointestinal/Abdomen GI Exam: Soft, Bowel Sounds Present Integumentary Skin Exam: Clear Assessment/Plan Problem List: (1) Acute renal failure ICD Codes: N17.9 - Acute kidney failure, unspecified Plan: Patient has resolved Kidney Failure with Hydration Creatinine declined Potassium replace Nephrology to follow as needed (2) Thrombocytopenia ICD Codes: D69.6 - Thrombocytopenia, unspecified Plan: Platelets are progressively low due to underlying sepsis, check LDH, reticulocyte count to rule out any hemolysis (3) Diarrhea ICD Codes: R19.7 - Diarrhea, unspecified Plan: Follow cultures (4) Dehydration ICD Codes: E86.0 - Dehydration Status: Acute Plan: Normal saline at 150 cc an hour (5) Neutropenia ICD Codes: D70.9 - Neutropenia, unspecified Status: Acute Plan: B and C of 400 getting Neupogen (6) Endometrial ca ICD Codes: C54.1 - Malignant neoplasm of endometrium Status: Chronic Plan: Stage IV (7) Hypokalemia ICD Codes: E87.6 - Hypokalemia Plan: Replaced Problem Qualifiers (1) Neutropenia: Qualified Codes: D70.1 - Agranulocytosis secondary to cancer chemotherapy; T45.1X5A - Adverse effect of antineoplastic and immunosuppressive drugs, initial encounter Gianfranco Gomes MD Jun 25, 2017 11:05
[2017-06-25] MEDS ORDERED: LEVOFLOXACIN 250 MG PREMIX INJ 50 ML IV SCH (20:00)
[2017-06-26] VITALS (20 sets, daily range): BP systolic 91–107; BP diastolic 47–67; PULSE 71–105; RESP 16; TEMP 97.6–98.9; O2SAT 96–99
[2017-06-26] MEDS: FAMOTIDINE 20 MG/2 ML VIAL IV PUSH SCH ×2 (02:57→14:33)
[2017-06-26] MEDS: CHLORHEXIDINE GLUCONATE 2 % 1 PACK (2 CLOTHS)(taper/protocol) TOPICAL SCH (04:00)
--- NOTE | 2017-06-26 07:02 | HHI.PR ---
Subjective Remarks The patient was ambulating to the sink she feels very unsteady and feels lightheaded. Feels very weak. She is with severe nausea did not vomit. Had diarrhea green in color. No fever or chills overnight. Feels improved today however. Objective Vitals Vital Signs Date Time Temp Pulse Resp B/P (MAP) Pulse Ox O2 Delivery O2 Flow Rate FiO2 06/26/17 05:00 76 06/26/17 04:38 98.4 82 16 95/58 (70) 96 06/26/17 04:22 71 06/26/17 04:00 76 06/26/17 03:00 88 06/26/17 02:00 80 06/26/17 01:00 76 06/26/17 00:27 97.6 88 16 107/67 (80) 97 06/26/17 00:05 81 06/25/17 23:00 82 06/25/17 22:20 105/57 (73) 06/25/17 22:00 100 06/25/17 21:00 80 06/25/17 20:51 82 06/25/17 20:40 98.1 86 16 102/62 (75) 97 06/25/17 19:00 80 06/25/17 17:10 96 21 06/25/17 16:13 98.5 92 16 95/55 (68) 96 06/25/17 12:40 93 06/25/17 12:40 93 17 95/55 (68) 97 06/25/17 12:20 92 06/25/17 12:20 92 17 91/53 (66) 97 06/25/17 12:00 87 06/25/17 12:00 98.6 87 17 98/56 (70) 97 06/25/17 10:20 88 06/25/17 10:00 89 06/25/17 09:43 98 06/25/17 09:40 88 15 96/56 (69) 06/25/17 09:20 87 18 99/56 (70) 06/25/17 09:00 91 16 96/58 (71) 97 06/25/17 08:40 96 22 97/69 (78) 98 06/25/17 08:20 100 18 106/65 (79) 97 06/25/17 08:00 98.4 98 18 108/68 (81) 98 2/3/18 08:00 97 I/O 06/25/17 06/25/17 06/25/17 06/26/17 06/26/17 06/26/17 07:00 15:00 23:00 07:00 15:00 23:00 Intake Total 1250 ml 1300 ml 1010 ml 600 ml Output Total 1350 ml 450 ml 450 ml Balance -100 ml 1300 ml 560 ml 150 ml Intake Oral 600 ml 600 ml IV Total 1250 ml 1300 ml 410 ml Output Urine Total 1100 ml 450 ml 450 ml Emesis 250 ml # Bowel Movements 6 1 5 Result Diagram: 06/25/17 0500 06/25/17 0500 Imaging Last Impressions Renal Ultrasound 06/24/17 0000 Signed Impressions: Service Date/Time: Saturday, June 24, 2017 08:47 - CONCLUSION: 1. No evidence for obstructive uropathy. Roger Schuler MD Chest X-Ray 06/23/17 0000 Signed Impressions: Service Date/Time: Saturday, June 24, 2017 00:06 - CONCLUSION: No acute disease. Nakul Hill MD Objective Remarks GENERAL: Chronically ill frail elderly women, more alert, very weak appearing, however not in distress. SKIN: Warm and dry. CARDIOVASCULAR: Tachycardic. Normal S1/S2. Normal rate and rhythm. RESPIRATORY: No accessory muscle use. Clear to auscultation. Breath sounds equal bilaterally. GASTROINTESTINAL: Abdomen soft, nontender well healed surgical incisions. MUSCULOSKELETAL: Extremities without clubbing, cyanosis, or edema. Toes are poorly perfused NEUROLOGICAL: Awake and more alert. No obvious cranial nerve deficits. Motor grossly within normal limits though weak A/P Assessment and Plan Septic shock. Resolved. Febrile neutropenia Acute metabolic encephalopathy - resolved. Acute kidney injury- resolving. Severe dehydration- resolving. Severe metabolic acidosis- resolved. Recurrent endometrial cancer on recent chemotherapy History of hepatitis B Severe nausea. Decreased appetite. Moderate protein calorie malnutrition. 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 Add antiemetics, ensure to diet, MVT, megace. Check prealbumin. 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 RESP: - Nasal cannula oxygen to keep oxygen saturation above 90% - DuoNeb every 6 hours when necessary - Chest x-ray did not show any acute infiltrates CV: - SIRS response improving. continue telemetry. GI: - advance back diet to neutropenic diet. IV famotidine : - Acute kidney failure secondary to severe dehydration and ATN due to sepsis - Monitor renal function closely. Place Valdez catheter. - Continue aggressive fluid hydration, decrease to 75cc/hr from 150cc/hr. ID: - cultures NGTD. continue to follow up. - Cefepime 2 g IV every [address] Galloway will DC Vancomycin and continue to monitor - Continue previously started Levaquin - ID consult, ff, appreciate recommendations HEME: - Recently started on carboplatin and Taxol chemotherapy for recurrent endometrial cancer - Neutropenia secondary to recent chemotherapy - Continue Neupogen per oncology ENDO: - Electrolyte replacement per protocol PROPH: - Bilateral lower extremity SCDs. Avoid chemical DVT prophylaxis at this time due to anticipated drop in platelet count - IV famotidine for GI prophylaxis LINES: - Right IJ port accessed. Continue to use peripheral IVs Discussed with the patient. nurse, family at bedside. Discussed with Dr Carty ID specialist All questions answered to best of my ability DC plan pending improvement, patient is not eating. KEYLA ff for abx , might DC abx tomorrow and will monitor Jeanine Muhammad MD Jun 26, 2017 07:02
[2017-06-26] MEDS: FILGRASTIM 300 MCG/ML VIAL SQ SCH (08:38)
[2017-06-26] MEDS: SODIUM CHLORIDE 0.9% FLUSH 10 ML FLUSH IV FLUSH SCH ×2 (08:38→19:36)
[2017-06-26] MEDS: CEFEPIME INJ 2,000 MG in SODIUM CHLORIDE 0.9% INJ 100 ML IV SCH (08:38)
[2017-06-26] MEDS: ONDANSETRON HCL 4 MG/2 ML VIAL IVP PRN (11:27)
[2017-06-26] MEDS ORDERED: PROMETHAZINE HCL 25 MG TAB PO PRN (12:00)
[2017-06-26] MEDS ORDERED: LORazepam 0.5 MG TAB PO PRN (12:00)
[2017-06-26] MEDS ORDERED: METOCLOPRAMIDE HCL 10 MG/2 ML VIAL IM PRN (12:00)
--- NOTE | 2017-06-26 14:12 | HHI.IDPN ---
Subjective Subjective Remarks ID COVERAGE is a 72-year-old female recently diagnosed with recurrent endometrial cancer undergoing chemotherapy with Taxol and carboplatin using a port in her right chest wall. Reportedly in the abdominal wall nodule was sent for tissue confirmation and is positive for recurrent disease. 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 Patient reports that approximately 2 days prior to admission she had labs and this these were satisfactory. Her WBC count was 5 her creatinine was 0.6. Her oral intake had decreased due to some GI symptoms and she was given IV fluids as outpatient in the oncology treatment center. Upon further questioning patient reports that she has had nausea vomiting and most importantly just watery diarrhea for several months now which has now gotten worse in the last week. She endorses subjective fevers at home. She denies any sick contacts. Due to worsening in her clinical condition she presented to the emergency room was found to be profoundly dehydrated, neutropenic and was not febrile at that time. She was admitted to the hospital, transferred to [facility]. During the night she had a significant hypotensive episode and required more intensive resuscitation and she was transferred to the medical intensive care unit. Sepsis workup has been initiated and stool C. difficile was sent is now negative. Several other stool studies are pending. Infectious disease is consulted for evaluation and management of severe sepsis in a patient with neutropenia. Notes reviewed Temps okay Stool less frequent Stool consistency mushy, color is green No abdominal cramping NO nausea Oral intake fair, gets full easily Stool studies negative Has many WBC in her stool No abdominal pain No sores in the mouth Swallowing okay No respiratory complaint Voiding okay C. difficile negative WBC up to 4.7 Cultures are pending Creatinine is normal now Antibiotics Current Medications Levaquin Cefepime Medications (Trade) Dose Ordered Sig/Vida Route Start Time Stop Time Status Last Admin Sodium Chloride 1,000 ml @ 75 mls/hr [id number] IV 06/23/17 12:23 06/25/17 13:21 (NS Flush) 2 ml UNSCH PRN IV FLUSH 06/23/17 12:30 (NS Flush) 2 ml BID IV FLUSH 06/23/17 21:00 06/26/17 08:38 (Tylenol) 650 mg Q4H PRN PO 06/23/17 12:30 06/25/17 20:40 (Zofran Inj) 4 mg Q6H PRN IVP 06/23/17 12:30 06/26/17 11:27 (Narcan Inj) 0.4 mg UNSCH PRN IV PUSH 06/23/17 12:30 (Neupogen Inj) 300 mcg DAILY SQ 06/23/17 20:00 07/02/17 19:59 06/26/17 08:38 Miscellaneous Information Patient in critical care unit? Ass... [id number] .XX 06/24/17 00:15 (Chlorhexidine 2% Cloth) 3 pack DAILY@04 TOPICAL 06/24/17 04:00 06/28/17 04:01 06/26/17 04:00 (Chlorhexidine 2% Cloth) 3 pack UNSCH PRN TOPICAL 06/24/17 00:15 06/29/17 00:11 (Duoneb Neb) 1 ampule Q2HR NEB PRN NEB 06/24/17 01:15 (Brethine Inj) 1 mg UNSCH PRN SQ 06/24/17 01:15 Cefepime HCl 2000 mg/Sodium Chloride 100 ml @ 200 mls/hr Q24H IV 06/25/17 08:00 06/26/17 08:38 (Pepcid Inj) 10 mg Q12H IV PUSH 06/25/17 02:00 06/26/17 02:57 Levofloxacin/ Dextrose 50 ml @ 50 mls/hr Q48H IV 06/25/17 20:00 06/29/17 19:59 06/25/17 20:40 (Roxicodone) 5 mg Q4H PRN PO 06/24/17 16:15 06/26/17 11:28 (Reglan Inj) 10 mg Q8H PRN IM 06/26/17 12:00 (Phenergan) 25 mg Q4H PRN PO 06/26/17 12:00 (Ativan) 0.5 mg Q6H PRN PO 06/26/17 12:00 (Theragran) 1 tab DAILY PO 06/26/17 12:30 (Megace Liq) 400 mg DAILY PO 06/26/17 12:30 Lines [id number] right upper chest Past Medical History Recurrent endometrial cancer, started on chemo approximately 1 week ago Hepatitis B Herpes Lyme's disease History of Osteomyelitis Previous Radiation Therapy Past Surgical History RIJ port placement 06/13/17 Tonsillectomy Radical Hysterectomy with LN Dissection in 2017 Osteomyelitis left leg in 1955 Allergies: Coded Allergies: No Known Allergies (Unverified Allergy, Unknown, 06/23/17) Objective . Vital Signs Date Time Temp Pulse Resp B/P (MAP) Pulse Ox O2 Delivery O2 Flow Rate FiO2 06/26/17 11:37 98.0 83 16 106/50 (68) 98 06/26/17 10:50 21 06/26/17 08:35 97.8 78 16 97/55 (69) 99 06/26/17 08:18 105 06/26/17 05:00 76 06/26/17 04:38 98.4 82 16 95/58 (70) 96 06/26/17 04:22 71 06/26/17 04:00 76 06/26/17 03:00 88 06/26/17 02:00 80 06/26/17 01:00 76 06/26/17 00:27 97.6 88 16 107/67 (80) 97 06/26/17 00:05 81 06/25/17 23:00 82 06/25/17 22:20 105/57 (73) 06/25/17 22:00 100 06/25/17 21:00 80 06/25/17 20:51 82 06/25/17 20:40 98.1 86 16 102/62 (75) 97 06/25/17 19:00 80 06/25/17 17:10 96 21 06/25/17 16:13 98.5 92 16 95/55 (68) 96 . Laboratory Tests Test 06/24/17 15:00 06/25/17 05:00 White Blood Count 1.6 TH/MM3 4.7 TH/MM3 Red Blood Count 4.05 MIL/MM3 3.52 MIL/MM3 Hemoglobin 11.8 GM/DL 10.3 GM/DL Hematocrit 34.8 % 30.0 % Mean Corpuscular Volume 85.9 FL 85.2 FL Mean Corpuscular Hemoglobin 29.2 PG 29.3 PG Mean Corpuscular Hemoglobin Concent 34.0 % 34.4 % Red Cell Distribution Width 12.5 % 12.8 % Platelet Count 101 TH/MM3 93 TH/MM3 Mean Platelet Volume 8.2 FL 8.5 FL Neutrophils (%) (Auto) 52.7 % Lymphocytes (%) (Auto) 23.6 % Monocytes (%) (Auto) 22.6 % Eosinophils (%) (Auto) 0.6 % Basophils (%) (Auto) 0.5 % Neutrophils # (Auto) 0.9 TH/MM3 Lymphocytes # (Auto) 0.4 TH/MM3 Monocytes # (Auto) 0.4 TH/MM3 Eosinophils # (Auto) 0.0 TH/MM3 Basophils # (Auto) 0.0 TH/MM3 CBC Comment AUTO DIFF Differential Total Cells Counted 100 Neutrophils % (Manual) 14 % Band Neutrophils % 30 % Lymphocytes % 29 % Monocytes % 15 % Neutrophils # (Manual) 0.9 TH/MM3 Metamyelocytes 11 % Myelocytes 1 % Differential Comment FINAL DIFF MANUAL Platelet Estimate LOW Platelet Morphology Comment NORMAL Red Cell Morphology Comment NORMAL Laboratory Tests Test 06/24/17 15:00 06/25/17 01:30 06/25/17 05:00 06/26/17 04:30 Blood Urea Nitrogen 60 MG/DL 38 MG/DL Creatinine 2.05 MG/DL 1.08 MG/DL Random Glucose 119 MG/DL 85 MG/DL Total Protein 5.8 GM/DL Calcium Level 7.3 MG/DL 8.0 MG/DL Sodium Level 140 MEQ/L 141 MEQ/L Potassium Level 3.3 MEQ/L 3.2 MEQ/L 3.2 MEQ/L Chloride Level 109 MEQ/L 111 MEQ/L Carbon Dioxide Level 20.9 MEQ/L 19.8 MEQ/L Anion Gap 10 MEQ/L 10 MEQ/L Estimat Glomerular Filtration Rate 24 ML/MIN 50 ML/MIN Protein Corrected Calcium 8.0 MG/DL Microbiology Date/Time Source Procedure Growth Status 06/24/17 01:10 Blood Peripheral Aerobic Blood Culture - Preliminary NO GROWTH IN 2 DAYS Resulted 06/24/17 01:10 Blood Peripheral Anaerobic Blood Culture - Preliminary NO GROWTH IN 2 DAYS Resulted 06/24/17 01:05 Blood Peripheral Aerobic Blood Culture - Preliminary NO GROWTH IN 2 DAYS Resulted 06/24/17 01:05 Blood Peripheral Anaerobic Blood Culture - Preliminary NO GROWTH IN 2 DAYS Resulted 06/24/17 19:30 Stool Stool Acid Fast Stain - Final NO ACID FAST BACILLI SEEN Resulted 06/24/17 19:30 Stool Stool Mycobacterial Culture Pending Resulted 06/24/17 08:05 Stool Stool Cyclospora Exam - Final NO CYCLOSPORA SEEN Resulted 06/24/17 08:05 Stool Stool Cryptosporidium Exam Pending Resulted 06/24/17 08:05 Stool Stool Stool Pus (LATOSHA) - Final MANY WBC'S Resulted 06/24/17 08:05 Stool Stool Giardia Antigen (LATOSHA) Pending Resulted 06/24/17 08:05 Stool Stool - Final NO ENTERIC PATHOGENS DETECTED BY PCR... Complete 06/24/17 08:05 Stool Stool Rotavirus Antigen - Final NEGATIVE - ROTAVIRUS ANTIGEN IS ABSEN... Complete 06/24/17 08:05 Urine Catheterized Urine Urine Culture - Final NO GROWTH IN 48 HOURS. Complete 06/24/17 00:30 Urine Catheterized Urine Urine Culture - Final NO GROWTH IN 48 HOURS. Complete Imaging RADIOLOGY STUDIES/FILMS REVIEWED Renal Ultrasound 06/24/17 0000 Signed Impressions: Service Date/Time: Saturday, June 24, 2017 08:47 - CONCLUSION: 1. No evidence for obstructive uropathy. Roger Schuler MD Chest X-Ray 06/23/17 0000 Signed Impressions: Service Date/Time: Saturday, June 24, 2017 00:06 - CONCLUSION: No acute disease. Nakul Hill MD Physical Exam GENERAL: awake and alert, NAD SKIN: No rashes. HEAD: Atraumatic. Normocephalic. No temporal or scalp tenderness. EYES: Pupils equal round and reactive. Extraocular motions intact. No scleral icterus. No injection or drainage. ENT: Nose without bleeding, purulent drainage or septal hematoma. Moist oral mucosa, no oral lesions noted. NECK: Trachea midline. Supple, nontender, no meningeal signs. CARDIOVASCULAR: Heart sounds audible. Port site with no evidence of infection. RESPIRATORY: Clear to auscultation. Breath sounds equal bilaterally. No wheezes , rales, or rhonchi. GASTROINTESTINAL: Abdomen soft, flat, not tender, not distended. No guarding no rigidity. Bowel sounds are present and normoactive MUSCULOSKELETAL: Extremities without clubbing, cyanosis, or edema. No calf tenderness. Negative Homans sign bilaterally. NEUROLOGICAL: Awake and alert. Nonfocal exam. Psych cooperative IV line sites with no evidence of infection. Assessment & Plan Remarks Assessment and Plan Severe sepsis present on admission. Shock - off pressors - prob due to hypovolemia Immune compromised host, S/P cehmo for metastatic endometrial CA Hypotension: Dehydration, sepsis, resolved Diarrhea present on admission: C. difficile negative, all stool studies, but has many WBC. - Possible chemotherapy-induced diarrhea versus mucositis Neutropenic sepsis - WBC now up Port in place Endometrial cancer with carcinomatosis Recently received Taxol and carboplatin Renal failure, likely due to volume - resolved Recommendations: Stop cefepime Vanco has been D/C Continue Levaquin IV for now. Repeat CBC tomorrow Follow cultures Monitor progress Patient encouraged to increase po intake D/W RN Explained plan to the patient Isabel Carr MD Jun 26, 2017 14:12
[2017-06-26] MEDS: MULTIVITAMIN TAB PO SCH (14:33)
[2017-06-26] MEDS: MEGESTROL ACETATE SUSP 400 MG/10 ML CUP PO SCH (15:55)
[2017-06-26] MEDS: SODIUM CHLOR 0.9% 1000 ML INJ 1,000 ML IV SCH ×2 (17:02→19:30)
[2017-06-27] VITALS (21 sets, daily range): BP systolic 84–116; BP diastolic 49–59; PULSE 74–210; RESP 16; TEMP 98.6–98.7; O2SAT 97–98
[2017-06-27] MEDS: CHLORHEXIDINE GLUCONATE 2 % 1 PACK (2 CLOTHS)(taper/protocol) TOPICAL SCH (02:29)
[2017-06-27] MEDS: FAMOTIDINE 20 MG/2 ML VIAL IV PUSH SCH ×2 (02:29→14:43)
[2017-06-27 05:51] LABS: AUTOMATED NEUTROPHIL # 29.6 TH/MM3 (1.8-7.7); BASOPHIL % 0.2 % (0.0-2.0); EOSINOPHIL # 0.2 TH/MM3 (0-0.4); EOSINOPHIL % 0.7 % (0.0-4.0); HEMATOCRIT 27.9 % (35.0-46.0); HEMOGLOBIN 9.6 GM/DL (11.6-15.3); LYMPH % 5.5 % (9.0-44.0); LYMPHOCYTE # 1.8 TH/MM3 (1.0-4.8); MEAN CELL VOLUME 83.4 FL (80.0-100.0); MEAN CORPUSCULAR HEMOGLOBIN 28.8 PG (27.0-34.0); MEAN CORPUSCULAR HGB CONC 34.5 % (32.0-36.0); MONO % 4.2 % (0.0-8.0); MONOCYTE # 1.4 TH/MM3 (0-0.9); NEUT % 89.4 % (16.0-70.0); PLATELET COUNT 90 TH/MM3 (150-450); RED BLOOD COUNT 3.35 MIL/MM3 (4.00-5.30); RED CELL DISTRIBUTION WIDTH 12.7 % (11.6-17.2)
[2017-06-27 06:02] LABS: BICARBONATE 25.9 MEQ/L (21.0-32.0); CREATININE 0.61 MG/DL (0.50-1.00); MAGNESIUM 1.7 MG/DL (1.5-2.5)
[2017-06-27] MEDS ORDERED: POTASSIUM CHLORIDE 10 MEQ CONTROLLED RELEASE TAB PO ONE ×2 (06:30→08:30)
[2017-06-27] MEDS: SODIUM CHLOR 0.9% 1000 ML INJ 1,000 ML IV SCH (06:44)
[2017-06-27] MEDS: POTASSIUM CHLOR 20 MEQ PREMIX 100 ML IV SCH ×2 (06:44→17:31)
--- NOTE | 2017-06-27 07:58 | PD.ONC.PN ---
Subjective Subjective Remarks patient is resting in bed awake and alert. states she is feeling much better has been OOB. states she did not eat much yesterday, but she will eat today overall feels like she wants to go home and continue to get stronger Objective Data Date Time Temp Pulse Resp B/P (MAP) Pulse Ox O2 Delivery O2 Flow Rate FiO2 06/27/17 06:03 79 06/27/17 05:06 74 06/27/17 04:04 98.6 83 16 108/58 (75) 98 06/27/17 04:03 75 06/27/17 03:03 76 06/27/17 02:06 80 06/27/17 01:04 84 06/27/17 00:45 98.6 80 16 116/54 (74) 97 06/27/17 00:03 74 06/26/17 23:04 80 06/26/17 22:03 79 06/26/17 21:04 78 06/26/17 20:54 96 21 06/26/17 20:00 90 06/26/17 19:36 98.9 87 16 91/52 (65) 96 06/26/17 19:18 91 06/26/17 15:59 98.3 86 16 97/47 (64) 96 06/26/17 11:37 98.0 83 16 106/50 (68) 98 06/26/17 10:50 21 06/26/17 08:35 97.8 78 16 97/55 (69) 99 06/26/17 08:18 105 06/27/17 06/27/17 06/27/17 07:00 15:00 23:00 Intake Total 120 ml Output Total 850 ml Balance -730 ml Result Diagram: 06/27/17 0530 06/27/17 0530 Laboratory Results Laboratory Tests Test 06/27/17 05:30 White Blood Count 33.0 TH/MM3 Red Blood Count 3.35 MIL/MM3 Hemoglobin 9.6 GM/DL Hematocrit 27.9 % Mean Corpuscular Volume 83.4 FL Mean Corpuscular Hemoglobin 28.8 PG Mean Corpuscular Hemoglobin Concent 34.5 % Red Cell Distribution Width 12.7 % Platelet Count 90 TH/MM3 Mean Platelet Volume 8.0 FL Neutrophils (%) (Auto) 89.4 % Lymphocytes (%) (Auto) 5.5 % Monocytes (%) (Auto) 4.2 % Eosinophils (%) (Auto) 0.7 % Basophils (%) (Auto) 0.2 % Neutrophils # (Auto) 29.6 TH/MM3 Lymphocytes # (Auto) 1.8 TH/MM3 Monocytes # (Auto) 1.4 TH/MM3 Eosinophils # (Auto) 0.2 TH/MM3 Basophils # (Auto) 0.0 TH/MM3 CBC Comment AUTO DIFF Blood Urea Nitrogen 11 MG/DL Creatinine 0.61 MG/DL Random Glucose 92 MG/DL Calcium Level 8.0 MG/DL Magnesium Level 1.7 MG/DL Sodium Level 142 MEQ/L Potassium Level 2.0 MEQ/L Chloride Level 110 MEQ/L Carbon Dioxide Level 25.9 MEQ/L Anion Gap 6 MEQ/L Estimat Glomerular Filtration Rate 97 ML/MIN Culture Results Microbiology Date/Time Source Procedure Growth Status 06/24/17 19:30 Stool Stool Acid Fast Stain - Final NO ACID FAST BACILLI SEEN Resulted 06/24/17 19:30 Stool Stool Mycobacterial Culture Pending Resulted 06/24/17 08:05 Stool Stool Cyclospora Exam - Final NO CYCLOSPORA SEEN Resulted 06/24/17 08:05 Stool Stool Cryptosporidium Exam Pending Resulted 06/24/17 08:05 Stool Stool Stool Pus (LATOSHA) - Final MANY WBC'S Resulted 06/24/17 08:05 Stool Stool Giardia Antigen (LATOSHA) Pending Resulted 06/24/17 08:05 Stool Stool - Final NO ENTERIC PATHOGENS DETECTED BY PCR... Complete 06/24/17 08:05 Stool Stool Rotavirus Antigen - Final NEGATIVE - ROTAVIRUS ANTIGEN IS ABSEN... Complete 06/24/17 08:05 Urine Catheterized Urine Urine Culture - Final NO GROWTH IN 48 HOURS. Complete Administered Medications Medications (Trade) Dose Ordered Sig/Vida Route PRN Reason Start Time Stop Time Status Last Admin Dose Admin Sodium Chloride 1,000 ml @ 75 mls/hr [id number] IV 06/23/17 12:23 06/27/17 06:44 Sodium Chloride (NS Flush) 2 ml UNSCH PRN IV FLUSH FLUSH AFTER USING IV ACCESS 06/23/17 12:30 06/26/17 19:36 Sodium Chloride (NS Flush) 2 ml BID IV FLUSH 06/23/17 21:00 06/26/17 19:36 Acetaminophen (Tylenol) 650 mg Q4H PRN PO TEMP > 100.4 06/23/17 12:30 06/25/17 20:40 Ondansetron HCl (Zofran Inj) 4 mg Q6H PRN IVP mild NAUSEA OR VOMITING 06/23/17 12:30 06/26/17 11:27 Filgrastim (Neupogen Inj) 300 mcg DAILY SQ 06/23/17 20:00 07/02/17 19:59 06/26/17 08:38 Chlorhexidine Gluconate (Chlorhexidine 2% Cloth) 3 pack DAILY@04 TOPICAL 06/24/17 04:00 06/28/17 04:01 06/27/17 02:29 Famotidine (Pepcid Inj) 10 mg Q12H IV PUSH 06/25/17 02:00 06/27/17 02:29 Levofloxacin/ Dextrose 50 ml @ 50 mls/hr Q48H IV 06/25/17 20:00 06/29/17 19:59 06/25/17 20:40 Oxycodone HCl (Roxicodone) 5 mg Q4H PRN PO pain 6-10 06/24/17 16:15 06/26/17 11:28 Multivitamins (Theragran) 1 tab DAILY PO 06/26/17 12:30 06/26/17 14:33 Megestrol Acetate (Megace Liq) 400 mg DAILY PO 06/26/17 12:30 06/26/17 15:55 Potassium Chloride 100 ml @ 50 mls/hr Q2H IV 06/27/17 06:30 06/27/17 10:29 06/27/17 06:44 Objective Remarks GENERAL: Well-nourished, well-developed patient. SKIN: Warm and dry. HEAD: Normocephalic. EYES: No scleral icterus. No injection or drainage. CARDIOVASCULAR: Regular rate and rhythm RESPIRATORY: Breath sounds equal bilaterally. No accessory muscle use. EXTREMITIES: No cyanosis, or edema. MUSCULOSKELETAL: Adequate muscle tone. NEUROLOGICAL: No obvious focal deficit. Awake, alert, and oriented x3. PSYCHIATRIC: Appropriate mood and affect; insight and judgment normal. Assessment/Plan Problem List: (1) Neutropenia ICD Codes: D70.9 - Neutropenia, unspecified Status: Acute Plan: will recheck cbc w/diff if continues to be elevated will discontinue Neupogen Neulasta with continued IV chemotherapy Dr. Liriano considering making treatment changes based on patient's response after only one cycle of Taxol and Carboplatin. (2) Endometrial ca ICD Codes: C54.1 - Malignant neoplasm of endometrium Status: Chronic Plan: will follow up with Dr. Liriano as outpt (3) Dehydration ICD Codes: E86.0 - Dehydration Status: Resolved Plan: creat WNL continue to encourage oral intake IV hydration supportive care will consider giving weekly hydration as outpt once IV chemotherapy is continued Attending Statement Discussed patient's condition with Dr. Liriano and he is in agreement. Problem Qualifiers (1) Neutropenia: Qualified Codes: D70.1 - Agranulocytosis secondary to cancer chemotherapy; T45.1X5A - Adverse effect of antineoplastic and immunosuppressive drugs, initial encounter Estella Esparza Jun 27, 2017 07:58
[2017-06-27] MEDS: MULTIVITAMIN TAB PO SCH (08:35)
[2017-06-27] MEDS: MEGESTROL ACETATE SUSP 400 MG/10 ML CUP PO SCH (08:38)
[2017-06-27] MEDS: FILGRASTIM 300 MCG/ML VIAL SQ SCH (08:38)
[2017-06-27] MEDS: SODIUM CHLORIDE 0.9% FLUSH 10 ML FLUSH IV FLUSH SCH ×2 (08:39→21:00)
[2017-06-27 08:48] LABS: BANDS 28 % (0-6); MONOCYTES 3 % (0-8); NEUTROPHIL # MANUAL DIFF 31.7 TH/MM3 (1.8-7.7); POLYS (SEG NEUTROPHILS) 68 % (16-70); TOXIC GRANULATION 2+ (NORMAL)
[2017-06-27] MEDS: ONDANSETRON HCL 4 MG/2 ML VIAL IVP PRN ×2 (08:51→19:12)
--- NOTE | 2017-06-27 09:08 | HHI.PR ---
Subjective Remarks Still with nausea, no vomiting. No more diarrhea. With lower abdominal pain. No fever or chills. denies chest pain or sob. Objective Vitals Vital Signs Date Time Temp Pulse Resp B/P (MAP) Pulse Ox O2 Delivery O2 Flow Rate FiO2 06/27/17 08:30 98.6 84 16 101/56 (71) 97 06/27/17 06:03 79 06/27/17 05:06 74 06/27/17 04:04 98.6 83 16 108/58 (75) 98 06/27/17 04:03 75 06/27/17 03:03 76 06/27/17 02:06 80 06/27/17 01:04 84 06/27/17 00:45 98.6 80 16 116/54 (74) 97 06/27/17 00:03 74 06/26/17 23:04 80 06/26/17 22:03 79 06/26/17 21:04 78 06/26/17 20:54 96 21 06/26/17 20:00 90 06/26/17 19:36 98.9 87 16 91/52 (65) 96 06/26/17 19:18 91 06/26/17 15:59 98.3 86 16 97/47 (64) 96 06/26/17 11:37 98.0 83 16 106/50 (68) 98 06/26/17 10:50 21 I/O 06/26/17 06/26/17 06/26/17 06/27/17 06/27/17 06/27/17 07:00 15:00 23:00 07:00 15:00 23:00 Intake Total 600 ml 100 ml 2972 ml 120 ml Output Total 450 ml 600 ml 850 ml Balance 150 ml 100 ml 2372 ml -730 ml Intake Oral 600 ml 1440 ml 120 ml IV Total 100 ml 1532 ml Output Urine Total 450 ml 600 ml 850 ml # Bowel Movements 5 3 Result Diagram: 06/27/17 0530 06/27/17 0530 Imaging Last Impressions Renal Ultrasound 06/24/17 0000 Signed Impressions: Service Date/Time: Saturday, June 24, 2017 08:47 - CONCLUSION: 1. No evidence for obstructive uropathy. Roger Schuler MD Chest X-Ray 06/23/17 0000 Signed Impressions: Service Date/Time: Saturday, June 24, 2017 00:06 - CONCLUSION: No acute disease. Nakul Hill MD Objective Remarks GENERAL: Chronically ill frail elderly women, more alert, very weak appearing, however not in distress. SKIN: Warm and dry. CARDIOVASCULAR: Tachycardic. Normal S1/S2. Normal rate and rhythm. RESPIRATORY: No accessory muscle use. Clear to auscultation. Breath sounds equal bilaterally. GASTROINTESTINAL: Abdomen soft, nontender well healed surgical incisions. MUSCULOSKELETAL: Extremities without clubbing, cyanosis, or edema. Toes are poorly perfused NEUROLOGICAL: Awake and more alert. No obvious cranial nerve deficits. Motor grossly within normal limits though weak A/P Assessment and Plan Septic shock. Resolved. Febrile neutropenia Acute metabolic encephalopathy - resolved. Acute kidney injury- resolving. Severe dehydration- resolving. Severe metabolic acidosis- resolved. Recurrent endometrial cancer on recent chemotherapy History of hepatitis B Severe nausea. Decreased appetite. Moderate protein calorie malnutrition. 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 Add antiemetics, ensure to diet, MVT, megace. Check prealbumin. Consult airport planner Hypokalemia PLAN: NEURO: - Metabolic encephalopathy secondary to sepsis and has resolved. RESP: - Nasal cannula oxygen to keep oxygen saturation above 90% - DuoNeb every 6 hours when necessary - Chest x-ray did not show any acute infiltrates CV: - SIRS response improving. continue telemetry. GI: - advance back diet to neutropenic diet. IV famotidine : - Acute kidney failure secondary to severe dehydration and ATN due to sepsis - Monitor renal function closely. Place Valdez catheter. - Continue aggressive fluid hydration, decrease to 75cc/hr from 150cc/hr. ID: - cultures NGTD. continue to follow up. - Cefepime 2 g IV every [address] Nilesh knox DC Vancomycin and continue to monitor - Continue previously started Levaquin - ID consult, ff, appreciate recommendations HEME: - Recently started on carboplatin and Taxol chemotherapy for recurrent endometrial cancer - Neutropenia secondary to recent chemotherapy - Continue Neupogen per oncology ENDO: - Electrolyte replacement per protocol PROPH: - Bilateral lower extremity SCDs. Avoid chemical DVT prophylaxis at this time due to anticipated drop in platelet count - IV famotidine for GI prophylaxis LINES: - Right IJ port accessed. Continue to use peripheral IVs Discussed with the patient. nurse, family at bedside. Discussed with Dr Carty ID specialist All questions answered to best of my ability DC plan pending improvement, patient is not eating. ID ff for abx , might DC abx today. DC when cleared by consultants,. able to eat. Jeanine Muhammad MD Jun 27, 2017 09:08
[2017-06-27 09:19] LABS: BASOPHIL # 0.1 TH/MM3 (0-0.2); BASOPHIL % 0.2 % (0.0-2.0); EOSINOPHIL # 0.1 TH/MM3 (0-0.4); EOSINOPHIL % 0.4 % (0.0-4.0); HEMATOCRIT 30.3 % (35.0-46.0); HEMOGLOBIN 10.5 GM/DL (11.6-15.3); LYMPHOCYTE # 2.2 TH/MM3 (1.0-4.8); MEAN CELL VOLUME 83.4 FL (80.0-100.0); MEAN CORPUSCULAR HEMOGLOBIN 28.9 PG (27.0-34.0); MEAN CORPUSCULAR HGB CONC 34.6 % (32.0-36.0); MEAN PLATELET VOLUME 8.1 FL (7.0-11.0); MONO % 3.7 % (0.0-8.0); MONOCYTE # 1.4 TH/MM3 (0-0.9); NEUT % 89.7 % (16.0-70.0); PLATELET COUNT 100 TH/MM3 (150-450); RED BLOOD COUNT 3.64 MIL/MM3 (4.00-5.30); RED CELL DISTRIBUTION WIDTH 12.7 % (11.6-17.2); WHITE BLOOD COUNT 36.8 TH/MM3 (4.0-11.0)
[2017-06-27 10:03] LABS: BANDS 31 % (0-6); DOHLE BODIES PRESENT (NONE SEEN); LYMPHOCYTES 3 % (9-44); METAMYELOCYTES 3 % (0-1); MONOCYTES 3 % (0-8); NEUTROPHIL # MANUAL DIFF 34.6 TH/MM3 (1.8-7.7); POLYS (SEG NEUTROPHILS) 60 % (16-70); STOMATOCYTES 1+ (NORMAL); TOXIC GRANULATION 2+ (NORMAL)
[2017-06-27] MEDS ORDERED: PROM25TA10 PO (10:06)
[2017-06-27] MEDS ORDERED: THERTAB15 PO (10:06)
[2017-06-27] MEDS ORDERED: HYDR-3583 PO (10:06)
[2017-06-27] MEDS ORDERED: MEGASUS2 PO (10:06)
[2017-06-27] MEDS ORDERED: LORA-392 PO (10:06)
--- NOTE | 2017-06-27 10:07 | HHI.DS ---
Discharge Summary Admission Date Jun 23, 2017 at 12:25 Discharge Date: Jun 27, 2017 Admitting Diagnosis Severe dehydration/neutropenia (1) Dehydration ICD Code: E86.0 - Dehydration Status: Resolved (2) Hypokalemia ICD Code: E87.6 - Hypokalemia (3) Acute renal failure ICD Code: N17.9 - Acute kidney failure, unspecified (4) Neutropenia ICD Code: D70.9 - Neutropenia, unspecified Status: Acute (5) Thrombocytopenia ICD Code: D69.6 - Thrombocytopenia, unspecified (6) Nausea and vomiting ICD Code: R11.2 - Nausea with vomiting, unspecified Status: Acute (7) Endometrial ca ICD Code: C54.1 - Malignant neoplasm of endometrium Status: Chronic Procedures none Brief History - From Admission This is a 72-year-old female with a history of uterine cancer treated with surgery in October 2016 and vaginal brachytherapy. In April 2017, patient was found to have 2 cm nodule in the right abdominal wall. Biopsy showed metastatic endometrial carcinoma. Patient had right IJ port placement on and was started on carboplatin and Taxol chemotherapy about a week ago (Onc Dr. Liriano). Patient presented to the emergency department yesterday with multiple episodes of nausea vomiting and diarrhea since one week. Lab work showed WBC count of 1000 with absolute neutrophil count of 300. Her BUN was 49 and creatinine 1.9. Patient was given IV fluid, was started on IV Levoquin and was admitted to Hospitalist service. Wong Vargas was called today at midnight for severe hypotension with systolic blood pressure in 60s. Patient had also temperature of 101.3 axillary. IVF NS bolus was started and patient was moved to ICU. I had also instructed the family practice resident who contacted me to start cefepime 2 g IV every 8 hours stat and vancomycin stat I evaluated the patient immediately in the ICU. Patient appears very critically ill. Patient is profoundly hypotensive with systolic blood pressure 45-50. Stat 3 L normal saline IV fluids ordered, also patient started on Levophed to keep map above 65. Stat cultures ordered, and broad-spectrum antibiotics with cefepime and vancomycin. Continue Levaquin for atypical coverage. Infectious diseases consult CBC/BMP: 06/27/17 0710 06/27/17 0517 Significant Findings Laboratory Tests Test 06/24/17 15:00 06/24/17 19:30 06/25/17 01:30 06/25/17 05:00 White Blood Count 1.6 TH/MM3 (4.0-11.0) Hematocrit 34.8 % (35.0-46.0) 30.0 % (35.0-46.0) Platelet Count 101 TH/MM3 (150-450) 93 TH/MM3 (150-450) Monocytes (%) (Auto) 22.6 % (0.0-8.0) Neutrophils # (Auto) 0.9 TH/MM3 (1.8-7.7) Lymphocytes # (Auto) 0.4 TH/MM3 (1.0-4.8) Neutrophils % (Manual) 14 % (16-70) Band Neutrophils % 30 % (0-6) Monocytes % 15 % (0-8) Neutrophils # (Manual) 0.9 TH/MM3 (1.8-7.7) Metamyelocytes 11 % (0-1) Myelocytes 1 % (0-0) Platelet Estimate LOW (NORMAL) Blood Urea Nitrogen 60 MG/DL (7-18) 38 MG/DL (7-18) Creatinine 2.05 MG/DL (0.50-1.00) 1.08 MG/DL (0.50-1.00) Random Glucose 119 MG/DL (74-106) Total Protein 5.8 GM/DL (6.4-8.2) Calcium Level 7.3 MG/DL (8.5-10.1) 8.0 MG/DL (8.5-10.1) Potassium Level 3.3 MEQ/L (3.5-5.1) 3.2 MEQ/L (3.5-5.1) 3.2 MEQ/L (3.5-5.1) Chloride Level 109 MEQ/L (98-107) 111 MEQ/L (98-107) Carbon Dioxide Level 20.9 MEQ/L (21.0-32.0) 19.8 MEQ/L (21.0-32.0) Estimat Glomerular Filtration Rate 24 ML/MIN (>89) 50 ML/MIN (>89) Protein Corrected Calcium 8.0 MG/DL (8.5-10.1) Red Blood Count 3.52 MIL/MM3 (4.00-5.30) Hemoglobin 10.3 GM/DL (11.6-15.3) Test 06/26/17 04:30 06/27/17 05:30 06/27/17 07:10 Prealbumin 8 MG/DL (20-40) White Blood Count 33.0 TH/MM3 (4.0-11.0) 36.8 TH/MM3 (4.0-11.0) Red Blood Count 3.35 MIL/MM3 (4.00-5.30) 3.64 MIL/MM3 (4.00-5.30) Hemoglobin 9.6 GM/DL (11.6-15.3) 10.5 GM/DL (11.6-15.3) Hematocrit 27.9 % (35.0-46.0) 30.3 % (35.0-46.0) Platelet Count 90 TH/MM3 (150-450) 100 TH/MM3 (150-450) Neutrophils (%) (Auto) 89.4 % (16.0-70.0) 89.7 % (16.0-70.0) Lymphocytes (%) (Auto) 5.5 % (9.0-44.0) 6.0 % (9.0-44.0) Neutrophils # (Auto) 29.6 TH/MM3 (1.8-7.7) 33.0 TH/MM3 (1.8-7.7) Monocytes # (Auto) 1.4 TH/MM3 (0-0.9) 1.4 TH/MM3 (0-0.9) Band Neutrophils % 28 % (0-6) 31 % (0-6) Neutrophils # (Manual) 31.7 TH/MM3 (1.8-7.7) 34.6 TH/MM3 (1.8-7.7) Toxic Granulation 2+ (NORMAL) 2+ (NORMAL) Platelet Estimate LOW (NORMAL) LOW (NORMAL) Calcium Level 8.0 MG/DL (8.5-10.1) Potassium Level 2.0 MEQ/L (3.5-5.1) Chloride Level 110 MEQ/L (98-107) Lymphocytes % 3 % (9-44) Metamyelocytes 3 % (0-1) Dohle Bodies PRESENT (NONE SEEN) Stomatocytes 1+ (NORMAL) Imaging Last Impressions Renal Ultrasound 06/24/17 0000 Signed Impressions: Service Date/Time: Saturday, June 24, 2017 08:47 - CONCLUSION: 1. No evidence for obstructive uropathy. Roger Schuler MD Chest X-Ray 06/23/17 0000 Signed Impressions: Service Date/Time: Saturday, June 24, 2017 00:06 - CONCLUSION: No acute disease. Nakul Hill MD PE at Discharge GENERAL: Chronically ill frail elderly women, more alert, very weak appearing, however not in distress. SKIN: Warm and dry. CARDIOVASCULAR: Tachycardic. Normal S1/S2. Normal rate and rhythm. RESPIRATORY: No accessory muscle use. Clear to auscultation. Breath sounds equal bilaterally. GASTROINTESTINAL: Abdomen soft, nontender well healed surgical incisions. MUSCULOSKELETAL: Extremities without clubbing, cyanosis, or edema. Toes are poorly perfused NEUROLOGICAL: Awake and more alert. No obvious cranial nerve deficits. Motor grossly within normal limits though weak Pt update on day of discharge Feels better less nausea,, low potassium replacing. Patient doesn't want to go to snf and prefers to go home with home health today. Still with abd pain no diarrhea., constipation Hospital Course Septic shock. Resolved. Febrile neutropenia, resolved Acute metabolic encephalopathy - resolved. Acute kidney injury- resolved Severe dehydration- resolved Severe metabolic acidosis- resolved. Recurrent endometrial cancer on recent chemotherapy History of hepatitis B Severe nausea. Decreased appetite. Moderate protein calorie malnutrition. 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 Add antiemetics, ensure to diet, MVT, megace. Check prealbumin. Consult finisher machine Hypokalemia replaced, give supplement at [place] PLAN: NEURO: - Metabolic encephalopathy secondary to sepsis and has resolved. RESP: - Nasal cannula oxygen to keep oxygen saturation above 90% - DuoNeb every 6 hours when necessary - Chest x-ray did not show any acute infiltrates CV: - SIRS response improving. continue telemetry. GI: - advance back diet to neutropenic diet. IV famotidine : - Acute kidney failure secondary to severe dehydration and ATN due to sepsis - Monitor renal function closely. Place Valdez catheter. - Continue aggressive fluid hydration, decrease to 75cc/hr from 150cc/hr. ID: - cultures NGTD. - Spoke with Dr Galloway will DC all antibiotics. - ID consult, ff, appreciate recommendations HEME: - Recently started on carboplatin and Taxol chemotherapy for recurrent endometrial cancer - Neutropenia secondary to recent chemotherapy - Continue Neupogen per oncology ENDO: - Electrolyte replacement per protocol PROPH: - Bilateral lower extremity SCDs. Avoid chemical DVT prophylaxis at this time due to anticipated drop in platelet count - IV famotidine for GI prophylaxis LINES: - Right IJ port accessed. Continue to use peripheral IVs Refused SNF. Patient improved some, DC to home with home health in stable condition but expect deterioration. To follow up as OP with PCP and consultants. Pt Condition on Discharge: Deteriorating Discharge Disposition: Discharge to SNF Discharge Time: > 30 minutes Discharge Instructions DIET: Follow Instructions for: As Tolerated, No Restrictions Activities you can perform: Regular-No Restrictions Follow up Referrals: Oncology - 1 Week with Jennifer Liriano MD PCP Follow-up - 2-3 Days New Medications: Famotidine (Famotidine) 20 Mg Tab 20 MG PO DAILY for dyspepsia , #60 TAB 0 Refills Megestrol ES Liq (Megace ES Liq) 625 Mg/5 Ml Susp 625 MG PO DAILY for Improve Appetite, #240 ML 0 Refills Potassium Chloride ER (Potassium Chloride SR) 8 Meq Tab 8 MEQ PO BID for low potassium , #30 TAB Multivitamin with Folic Acid (Thera Tablet) 400 Mcg Tablet 1 MG PO DAILY for Nutritional Supplement, #30 TAB Promethazine (Phenergan) 25 Mg Tablet 25 MG PO Q4H PRN for N/V mild if tolerates PO , #60 TAB Changed Medications: Lorazepam (Ativan) 0.5 Mg Tab 0.5 MG PO Q8HR PRN for ANXIETY AND/OR AGITATION, #30 TAB 0 Refills (Changed from : Unknown Dose ; DAILY) Continued Medications: Hydrocodone-Acetaminophen (Hydrocodone-Acetaminophen) 10-325 mg Tab 1 TAB PO Q4-6H PRN for PAIN, #30 TAB 0 Refills (This prescription has been renewed) Jeanine Muhammad MD Jun 27, 2017 10:07
[2017-06-27] MEDS ORDERED: POTA8TAB8 PO (10:12)
[2017-06-27] MEDS ORDERED: FAMO20TA2 PO (10:12)
[2017-06-27] MEDS ORDERED: SODIUM CHLORIDE 0.9% FLUSH 10 ML FLUSH IV FLUSH PRN (11:15)
--- NOTE | 2017-06-27 11:18 | HHI.FF ---
Face to Face Verification Diagnosis: (1) Endometrial ca (2) Nausea and vomiting (3) Thrombocytopenia (4) Neutropenia (5) Acute renal failure (6) Hypokalemia (7) Dehydration Physical Therapy Order: Evaluate and Treat Home Health Nursing Order: Medical education Signs/symptoms of disease process Medication education-adverse effect Nursing assessment with vital signs I have seen patient Elis Ortiz on 06/27/17. My clinical findings support the need for the requested home health care services because: Ltd mobility - disease progression Patient has SOB I certify that my clinical findings support that this patient is homebound because: Post-op weakness Jeanine Muhammad MD Jun 27, 2017 11:18
[2017-06-27] MEDS ORDERED: OXYGENDME NAS.CANULA (11:20)
--- NOTE | 2017-06-27 11:36 | HHI.PR ---
Addendum to Inpatient Note Addendum Reason: Additional Documentation Additional Information d/w earlier today. LOS Bar Ok to discharge to SNF from ID standpoint. Will sign off please call back if any change in clinical condition or questions. Arlette Carty MD Jun 27, 2017 11:36
[2017-06-27] MEDS ORDERED: METOPROLOL TARTRATE 5 MG/5 ML VIAL IV PUSH ONE (18:00)
[2017-06-27] MEDS ORDERED: MAGNESIUM OXIDE 400 MG TAB PO ONE (18:00)
[2017-06-28] VITALS (18 sets, daily range): BP systolic 88–95; BP diastolic 53–56; PULSE 79–120; RESP 16; TEMP 97.9–98.6; O2SAT 96–98
[2017-06-28] MEDS: FAMOTIDINE 20 MG/2 ML VIAL IV PUSH SCH ×2 (01:04→13:13)
[2017-06-28] MEDS: CHLORHEXIDINE GLUCONATE 2 % 1 PACK (2 CLOTHS)(taper/protocol) TOPICAL SCH (01:04)
[2017-06-28] MEDS: SODIUM CHLOR 0.9% 1000 ML INJ 1,000 ML IV SCH (03:34)
[2017-06-28 04:49] LABS: HEMATOCRIT 26.1 % (35.0-46.0); HEMOGLOBIN 9.2 GM/DL (11.6-15.3); MEAN CELL VOLUME 82.7 FL (80.0-100.0); MEAN CORPUSCULAR HEMOGLOBIN 29.2 PG (27.0-34.0); MEAN CORPUSCULAR HGB CONC 35.4 % (32.0-36.0); MEAN PLATELET VOLUME 7.8 FL (7.0-11.0); PLATELET COUNT 109 TH/MM3 (150-450); RED BLOOD COUNT 3.15 MIL/MM3 (4.00-5.30); RED CELL DISTRIBUTION WIDTH 12.5 % (11.6-17.2); WHITE BLOOD COUNT 37.1 TH/MM3 (4.0-11.0)
[2017-06-28 05:30] LABS: BANDS 5 % (0-6); LYMPHOCYTES 2 % (9-44); METAMYELOCYTES 1 % (0-1); MONOCYTES 2 % (0-8); NEUTROPHIL # MANUAL DIFF 35.6 TH/MM3 (1.8-7.7); POLYS (SEG NEUTROPHILS) 90 % (16-70)
[2017-06-28 05:31] LABS: BICARBONATE 25.4 MEQ/L (21.0-32.0); CALCIUM 7.6 MG/DL (8.5-10.1); CREATININE 0.47 MG/DL (0.50-1.00); MAGNESIUM 1.5 MG/DL (1.5-2.5)
[2017-06-28] MEDS ORDERED: MAGNESIUM OXIDE 400 MG TAB PO ONE (06:15)
[2017-06-28] MEDS ORDERED: MAGNESIUM SULFATE 1 GM PREMIX 100 ML IV ONE (06:15)
[2017-06-28] MEDS ORDERED: POTASSIUM CHLORIDE 25 MEQ EFFERVESCENT TAB PO ONE ×2 (06:30→07:45)
[2017-06-28] MEDS: POTASSIUM CHLOR 10 MEQ PREMIX 100 ML IV SCH ×2 (06:46→10:58)
--- NOTE | 2017-06-28 07:48 | HHI.PR ---
Subjective Remarks The patient was noted tachycardic yesterday, K was replaced , today K is still low. She is however able to eat better. No n/v/d/c. Deneis chest apin or sob.She denies palpitations. No weakness. She is ambulating in the room. Says she would like to take a shower. Objective Vitals Vital Signs Date Time Temp Pulse Resp B/P (MAP) Pulse Ox O2 Delivery O2 Flow Rate FiO2 06/28/17 06:00 88 06/28/17 05:07 84 06/28/17 04:55 Nasal Cannula 2.00 06/28/17 04:11 98.5 90 16 95/55 (68) 96 06/28/17 04:01 83 06/28/17 03:40 120 06/28/17 02:04 79 06/28/17 01:01 83 06/28/17 00:00 98.3 86 16 94/53 (67) 97 06/28/17 00:00 81 06/27/17 23:09 85 06/27/17 22:02 87 06/27/17 21:09 89 06/27/17 20:00 97 06/27/17 19:14 109 06/27/17 19:09 98.6 107 16 90/59 (69) 06/27/17 19:08 113 16 84/52 (63) 97 06/27/17 18:59 135 06/27/17 17:51 210 06/27/17 11:49 98.7 83 16 104/49 (67) 97 06/27/17 08:30 98.6 84 16 101/56 (71) 97 06/27/17 08:00 88 I/O 06/27/17 06/27/17 06/27/17 06/28/17 06/28/17 06/28/17 07:00 15:00 23:00 07:00 15:00 23:00 Intake Total 120 ml 705 ml 1240 ml Output Total 850 ml 550 ml 300 ml Balance -730 ml -550 ml 705 ml 940 ml Intake Oral 120 ml 600 ml 240 ml IV Total 105 ml 1000 ml Output Urine Total 850 ml 550 ml 300 ml Result Diagram: 06/28/17 0420 06/28/17 0420 Imaging Last Impressions Renal Ultrasound 06/24/17 0000 Signed Impressions: Service Date/Time: Saturday, June 24, 2017 08:47 - CONCLUSION: 1. No evidence for obstructive uropathy. Roger Schuler MD Chest X-Ray 06/23/17 0000 Signed Impressions: Service Date/Time: Saturday, June 24, 2017 00:06 - CONCLUSION: No acute disease. Nakul Hill MD Objective Remarks GENERAL: Chronically ill frail elderly women, more alert, very weak appearing, however not in distress. SKIN: Warm and dry. CARDIOVASCULAR: Tachycardic. Normal S1/S2. Normal rate and rhythm. RESPIRATORY: No accessory muscle use. Clear to auscultation. Breath sounds equal bilaterally. GASTROINTESTINAL: Abdomen soft, nontender well healed surgical incisions. MUSCULOSKELETAL: Extremities without clubbing, cyanosis, or edema. Toes are poorly perfused NEUROLOGICAL: Awake and more alert. No obvious cranial nerve deficits. Motor grossly within normal limits though weak Procedures none A/P Problem List: (1) Dehydration ICD Code: E86.0 - Dehydration Status: Resolved (2) Hypokalemia ICD Code: E87.6 - Hypokalemia (3) Acute renal failure ICD Code: N17.9 - Acute kidney failure, unspecified (4) Neutropenia ICD Code: D70.9 - Neutropenia, unspecified Status: Acute (5) Thrombocytopenia ICD Code: D69.6 - Thrombocytopenia, unspecified (6) Nausea and vomiting ICD Code: R11.2 - Nausea with vomiting, unspecified Status: Acute (7) Endometrial ca ICD Code: C54.1 - Malignant neoplasm of endometrium Status: Chronic Assessment and Plan Septic shock. Resolved. Febrile neutropenia Acute metabolic encephalopathy - resolved. Acute kidney injury- resolving. Severe dehydration- resolving. Severe metabolic acidosis- resolved. Recurrent endometrial cancer on recent chemotherapy History of hepatitis B Severe nausea. Decreased appetite. Moderate protein calorie malnutrition. 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 Add antiemetics, ensure to diet, MVT, megace. Check prealbumin. Consult special agent Hypokalemia PLAN: NEURO: - Metabolic encephalopathy secondary to sepsis and has resolved. RESP: - Nasal cannula oxygen to keep oxygen saturation above 90% - DuoNeb every 6 hours when necessary - Chest x-ray did not show any acute infiltrates CV: - SIRS response improving. continue telemetry. GI: - advance back diet to neutropenic diet. IV famotidine : - Acute kidney failure secondary to severe dehydration and ATN due to sepsis - Monitor renal function closely. Place Valdez catheter. - Continue aggressive fluid hydration, decrease to 75cc/hr from 150cc/hr. ID: - cultures NGTD. continue to follow up. - Received Cefepime vanco and levaquin. Spoke with Dr Nilesh MADISON all antibiotics / - ID consult, ff, appreciate recommendations HEME: - Recently started on carboplatin and Taxol chemotherapy for recurrent endometrial cancer - Neutropenia secondary to recent chemotherapy - Continue Neupogen per oncology ENDO: - Electrolyte replacement per protocol PROPH: - Bilateral lower extremity SCDs. Avoid chemical DVT prophylaxis at this time due to anticipated drop in platelet count - IV famotidine for GI prophylaxis LINES: - Right IJ port accessed. Continue to use peripheral IVs Discussed with the patient. nurse, family at bedside. Discussed with Dr Machelle KIMBALL specialist All questions answered to best of my ability DC plan pending improvement, patient is not eating. ID ff for abx , might DC abx 05/27/17, discussed with Dr Carmine KIMBALL, cleared for DC Patient is cleared by consultants able to eat , K improved will give supplement today and will DC her on supplement of KCL , encourage PO intake Discussed with the pt, nurse, family at bedside. Problem Qualifiers (1) Neutropenia: Qualified Codes: D70.1 - Agranulocytosis secondary to cancer chemotherapy; T45.1X5A - Adverse effect of antineoplastic and immunosuppressive drugs, initial encounter (2) Nausea and vomiting: Jeanine Muhammad MD Jun 28, 2017 7:48 am
[2017-06-28] MEDS: SODIUM CHLORIDE 0.9% FLUSH 10 ML FLUSH IV FLUSH SCH (09:00)
[2017-06-28] MEDS: MULTIVITAMIN TAB PO SCH (09:43)
[2017-06-28] MEDS: MEGESTROL ACETATE SUSP 400 MG/10 ML CUP PO SCH (09:43)
--- NOTE | 2017-06-28 10:46 | HHI.DS ---
Discharge Summary Admission Date Jun 23, 2017 at 12:25 pm Discharge Date: Jun 28, 2017 Admitting Diagnosis Severe dehydration/neutropenia (1) Dehydration ICD Code: E86.0 - Dehydration Status: Resolved (2) Hypokalemia ICD Code: E87.6 - Hypokalemia (3) Acute renal failure ICD Code: N17.9 - Acute kidney failure, unspecified (4) Neutropenia ICD Code: D70.9 - Neutropenia, unspecified Status: Acute (5) Thrombocytopenia ICD Code: D69.6 - Thrombocytopenia, unspecified (6) Nausea and vomiting ICD Code: R11.2 - Nausea with vomiting, unspecified Status: Acute (7) Endometrial ca ICD Code: C54.1 - Malignant neoplasm of endometrium Status: Chronic Procedures none Brief History - From Admission This is a 72-year-old female with a history of uterine cancer treated with surgery in October 2016 and vaginal brachytherapy. In April 2017, patient was found to have 2 cm nodule in the right abdominal wall. Biopsy showed metastatic endometrial carcinoma. Patient had right IJ port placement on and was started on carboplatin and Taxol chemotherapy about a week ago (Onc Dr. Liriano). Patient presented to the emergency department yesterday with multiple episodes of nausea vomiting and diarrhea since one week. Lab work showed WBC count of 1000 with absolute neutrophil count of 300. Her BUN was 49 and creatinine 1.9. Patient was given IV fluid, was started on IV Levoquin and was admitted to Hospitalist service. Wong Vargas was called today at midnight for severe hypotension with systolic blood pressure in 60s. Patient had also temperature of 101.3 axillary. IVF NS bolus was started and patient was moved to ICU. I had also instructed the family practice resident who contacted me to start cefepime 2 g IV every 8 hours stat and vancomycin stat I evaluated the patient immediately in the ICU. Patient appears very critically ill. Patient is profoundly hypotensive with systolic blood pressure 45-50. Stat 3 L normal saline IV fluids ordered, also patient started on Levophed to keep map above 65. Stat cultures ordered, and broad-spectrum antibiotics with cefepime and vancomycin. Continue Levaquin for atypical coverage. Infectious diseases consult CBC/BMP: 06/28/17 0420 06/28/17 0420 Significant Findings Laboratory Tests Test 06/26/17 04:30 06/27/17 05:30 06/27/17 07:10 06/28/17 04:20 Prealbumin 8 MG/DL (20-40) White Blood Count 33.0 TH/MM3 (4.0-11.0) 36.8 TH/MM3 (4.0-11.0) 37.1 TH/MM3 (4.0-11.0) Red Blood Count 3.35 MIL/MM3 (4.00-5.30) 3.64 MIL/MM3 (4.00-5.30) 3.15 MIL/MM3 (4.00-5.30) Hemoglobin 9.6 GM/DL (11.6-15.3) 10.5 GM/DL (11.6-15.3) 9.2 GM/DL (11.6-15.3) Hematocrit 27.9 % (35.0-46.0) 30.3 % (35.0-46.0) 26.1 % (35.0-46.0) Platelet Count 90 TH/MM3 (150-450) 100 TH/MM3 (150-450) 109 TH/MM3 (150-450) Neutrophils (%) (Auto) 89.4 % (16.0-70.0) 89.7 % (16.0-70.0) Lymphocytes (%) (Auto) 5.5 % (9.0-44.0) 6.0 % (9.0-44.0) Neutrophils # (Auto) 29.6 TH/MM3 (1.8-7.7) 33.0 TH/MM3 (1.8-7.7) Monocytes # (Auto) 1.4 TH/MM3 (0-0.9) 1.4 TH/MM3 (0-0.9) Band Neutrophils % 28 % (0-6) 31 % (0-6) Neutrophils # (Manual) 31.7 TH/MM3 (1.8-7.7) 34.6 TH/MM3 (1.8-7.7) 35.6 TH/MM3 (1.8-7.7) Toxic Granulation 2+ (NORMAL) 2+ (NORMAL) Platelet Estimate LOW (NORMAL) LOW (NORMAL) LOW (NORMAL) Calcium Level 8.0 MG/DL (8.5-10.1) 7.6 MG/DL (8.5-10.1) Potassium Level 2.0 MEQ/L (3.5-5.1) 2.9 MEQ/L (3.5-5.1) Chloride Level 110 MEQ/L (98-107) 112 MEQ/L (98-107) Lymphocytes % 3 % (9-44) 2 % (9-44) Metamyelocytes 3 % (0-1) Dohle Bodies PRESENT (NONE SEEN) Stomatocytes 1+ (NORMAL) Neutrophils % (Manual) 90 % (16-70) Creatinine 0.47 MG/DL (0.50-1.00) Imaging Last Impressions Renal Ultrasound 06/24/17 0000 Signed Impressions: Service Date/Time: Saturday, June 24, 2017 08:47 - CONCLUSION: 1. No evidence for obstructive uropathy. Roger Schuler MD Chest X-Ray 06/23/17 0000 Signed Impressions: Service Date/Time: Saturday, June 24, 2017 00:06 - CONCLUSION: No acute disease. Nakul Hill MD PE at Discharge GENERAL: Chronically ill frail elderly women, more alert, very weak appearing, however not in distress. SKIN: Warm and dry. CARDIOVASCULAR: Tachycardic. Normal S1/S2. Normal rate and rhythm. RESPIRATORY: No accessory muscle use. Clear to auscultation. Breath sounds equal bilaterally. GASTROINTESTINAL: Abdomen soft, nontender well healed surgical incisions. MUSCULOSKELETAL: Extremities without clubbing, cyanosis, or edema. Toes are poorly perfused NEUROLOGICAL: Awake and more alert. No obvious cranial nerve deficits. Motor grossly within normal limits though weak Hospital Course Septic shock. Resolved. Febrile neutropenia.Resolved Acute metabolic encephalopathy - resolved. Acute kidney injury- resolving. Severe dehydration- resolving. Severe metabolic acidosis- resolved. Recurrent endometrial cancer on recent chemotherapy History of hepatitis B Severe nausea. Decreased appetite. Moderate protein calorie malnutrition. 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 Add antiemetics, ensure to diet, MVT, megace. Check prealbumin. Consult conference producer Hypokalemia PLAN: NEURO: - Metabolic encephalopathy secondary to sepsis has resolved. RESP: - Nasal cannula oxygen to keep oxygen saturation above 90%. Resolved satiing well on room air - DuoNeb every 6 hours when necessary - Chest x-ray did not show any acute infiltrates CV: - SIRS response resolved. continue telemetry. GI: - advance back diet to neutropenic diet. IV famotidine : - Acute kidney failure secondary to severe dehydration and ATN due to sepsis - Monitor renal function closely. Place Valdez catheter. - Continue aggressive fluid hydration, decrease to 75cc/hr from 150cc/hr. ID: - cultures NGTD. continue to follow up. - Received Cefepime vanco and levaquin. Spoke with Dr Nilesh MADISON all antibiotics 06/27 - ID consult, ff, appreciate recommendations HEME: - Recently started on carboplatin and Taxol chemotherapy for recurrent endometrial cancer - Neutropenia secondary to recent chemotherapy - Continue Neupogen per oncology ENDO: - Electrolyte replacement per protocol PROPH: - Bilateral lower extremity SCDs. Avoid chemical DVT prophylaxis at this time due to anticipated drop in platelet count - IV famotidine for GI prophylaxis LINES: - Right IJ port accessed. Continue to use peripheral IVs DC plan pending improvement, patient is not eating. ID ff for abx , might DC abx 05/27/17, discussed with Dr Machelle KIMBALL, cleared for DC Patient is cleared by consultants able to eat , K improved will give supplement today and will DC her on supplement of KCL, encourage PO intake Pt Condition on Discharge: Deteriorating Discharge Disposition: Disch w/ Home Health Serv Discharge Time: > 30 minutes Discharge Instructions DIET: Follow Instructions for: As Tolerated, No Restrictions Activities you can perform: Regular-No Restrictions Follow up Referrals: Oncology - 1 Week with Jennifer Liriano MD PCP Follow-up - 2-3 Days New Orders: BASIC METABOLIC PROF - 2-3 Days MAGNESIUM (MG) - 2-3 Days New Medications: Famotidine (Famotidine) 20 Mg Tab 20 MG PO DAILY for dyspepsia , #60 TAB 0 Refills Megestrol ES Liq (Megace ES Liq) 625 Mg/5 Ml Susp 625 MG PO DAILY for Improve Appetite, #240 ML 0 Refills Potassium Chloride ER (Potassium Chloride SR) 8 Meq Tab 8 MEQ PO BID for low potassium , #30 TAB Multivitamin with Folic Acid (Thera Tablet) 400 Mcg Tablet 1 MG PO DAILY for Nutritional Supplement, #30 TAB Promethazine (Phenergan) 25 Mg Tablet 25 MG PO Q4H PRN for N/V mild if tolerates PO , #60 TAB Changed Medications: Lorazepam (Ativan) 0.5 Mg Tab 0.5 MG PO Q8HR PRN for ANXIETY AND/OR AGITATION, #30 TAB 0 Refills (Changed from : Unknown Dose ; DAILY) Continued Medications: Hydrocodone-Acetaminophen (Hydrocodone-Acetaminophen) 10-325 mg Tab 1 TAB PO Q4-6H PRN for PAIN, #30 TAB 0 Refills (This prescription has been renewed) Jeanine Muhammad MD Jun 28, 2017 10:46 am
[2017-06-28] MEDS ORDERED: POTASSIUM BICARBONATE 25 MEQ EFFERVESCENT TAB PO ONE (13:45)
[2017-06-28] MEDS: ONDANSETRON HCL 4 MG/2 ML VIAL IVP PRN (15:13)
--- NOTE | 2017-06-28 16:08 | EKG ---
Date Performed: 06/27/2017 Time Performed: 18:10:25 PTAGE: 72 years EKG: SINUS TACHYCARDIA LOW QRS VOLTAGE IN PRECORDIAL LEADS ABNORMAL RHYTHM ECG Since the prior t racing, there has been no significant change PREVIOUS TRACING : 11/12/2016 15.04 DOCTOR: Lali Frederick Interpretating Date/Time 06/28/2017 16:06:53
[2017-06-29 18:17] LABS: OSMOTIC GAP 26 mOsm/kg (See Comment)
== END 2017-06-28 15:46 | disposition home health service (06) | DRG 871 ==
LOC: PHED 10:22 → PHEDA 12:25 → N07A 15:42 → HIME 23:49 → HCIN 06-25 13:05
PROVIDERS: ADMIT Hospitalist; ATTEND Hospitalist
DX: A41.9 Sepsis, unspecified organism (principal); R65.21 Severe sepsis with septic shock; N17.0 Acute kidney failure with tubular necrosis; G93.41 Metabolic encephalopathy; R64 Cachexia; D61.818 Other pancytopenia; C78.6 Secondary malignant neoplasm of retroperitoneum and peritoneum; E44.0 Moderate protein-calorie malnutrition; Z68.1 Body mass index [BMI] 19.9 or less, adult; E87.2 Acidosis; E86.0 Dehydration; R62.7 Adult failure to thrive; K21.9 Gastro-esophageal reflux disease without esophagitis; R50.81 Fever presenting with conditions classified elsewhere; E87.6 Hypokalemia; T45.1X5A Adverse effect of antineoplastic and immunosuppressive drugs, initial encounter; B00.9 Herpesviral infection, unspecified; R19.7 Diarrhea, unspecified; F32.9 Major depressive disorder, single episode, unspecified; R11.10 Vomiting, unspecified; R00.0 Tachycardia, unspecified; Z92.3 Personal history of irradiation; Z85.42 Personal history of malignant neoplasm of other parts of uterus; Z86.19 Personal history of other infectious and parasitic diseases
CPT/HCPCS: 36600; 71045; 76775; 80048; 80053; 80202; 81001; 82438; 82805; 83605; 83690; 83735; 84100; 84132; 84134; 84155; 84302; 84999; 85007; 85027; 87015; 87040; 87086; 87116; 87205; 87206; 87207; 87328; 87329; 87425; 87493; 87506; 87641; 87804; 93005; 94618; 96361; 96374; 96375; J0610; J0692; J1442; J1956; J2270; J2370; J2405; J3370; J3475; J3480; J7030; J7040; J7050; P9045

== ENCOUNTER 2017-08-14 10:14 | Observation (INO) | payer MEDICARE ==
[~2017-08-14] VITALS: Ht 167.6 cm; Wt 52.5 kg
[2017-08-14] VITALS (12 sets, daily range): BP systolic 88–148; BP diastolic 53–68; PULSE 90–122; RESP 12–26; TEMP 98.9–99.1; O2SAT 92–96
[~2017-08-14 10:14] MED LIST changes: -FAMO1TAB37 PO; +FAMO20TA2 PO; +LORA-392 PO; +MEGASUS2 PO; +POTA8TAB8 PO; -PRIL20TA2 PO; +PROM25TA10 PO; +THERTAB15 PO
[2017-08-14] MEDS ORDERED: SODIUM CHLOR 0.9% 1000 ML INJ 1,000 ML IV SCH ×2 (10:31→18:00)
[2017-08-14] MEDS ORDERED: MORP-44 PO (10:32)
[2017-08-14] MEDS ORDERED: PANT20TA2 PO (10:32)
[2017-08-14] MEDS ORDERED: HYDR-3580 PO (10:32)
--- NOTE | 2017-08-14 10:34 | PD ---
HPI Chief Complaint: Abdominal Pain Time Seen by Provider: 10:31 Travel History International Travel<30 days: No Contact w/Intl Traveler<30days: No Traveled to known affect area: No History of Present Illness HPI Patient is a 72-year-old female presents emergency department for evaluation of abdominal pain in the right lower quadrant. She has a history of metastatic disease is followed by Dr. Liriano as well as Dr. Littlejohn. She was taken to the cancer care [facility] here on Tuesday and was given a dose of morphine has a PET scan ordered for next week. According to the family she is "too sick to do chemotherapy". She states the pain is rather severe in the right lower quadrant and gotten to the point where she is not able to eat very much. No nausea no vomiting. Constipation no diarrhea PFSH Past Medical History Depression: Yes Heart Rhythm Problems: No Cancer: Yes (STG 2-3 UTERINE CA november 2016) Cardiovascular Problems: No High Cholesterol: No Chemotherapy: Yes Chest Pain: No Congestive Heart Failure: No Diabetes: No Endocrine: No Gastrointestinal Disorders: No GERD: Yes Genitourinary: No Hepatitis: Yes (HEP B ) Hiatal Hernia: No Immune Disorder: No Musculoskeletal: Yes (OSTEOMYLITIS LEFT LEG) Neurologic: No Psychiatric: Yes (DEPRESSION) Reproductive: Yes (STG 2-3 UTERINE CA) Respiratory: No Immunizations Current: No Thyroid Disease: No Menopausal: Yes Past Surgical History Abdominal Surgery: No AICD: No Cardiac Surgery: No Ear Surgery: No Endocrine Surgery: No Eye Surgery: No Genitourinary Surgery: No Gynecologic Surgery: Yes (HYSTERECTOMY) Hysterectomy: Yes (total) Joint Replacement: No Oral Surgery: Yes (T/A) Pacemaker: No Thoracic Surgery: No Tonsillectomy: Yes (T & A) Other Surgery: Yes Social History Alcohol Use: Yes (occas. wine) Tobacco Use: No Substance Use: No Allergies-Medications (Allergen,Severity, Reaction): Coded Allergies: No Known Allergies (Unverified Allergy, Unknown, 08/14/17) Reported Meds & Prescriptions Reported Meds & Active Scripts Active Famotidine 20 Mg Tab 20 Mg PO DAILY Thera Tablet (Multivitamin with Folic Acid) 400 Mcg Tablet 1 Mg PO DAILY Phenergan (Promethazine HCl) 25 Mg Tablet 25 Mg PO Q4H PRN Ativan (Lorazepam) 0.5 Mg Tab 0.5 Mg PO Q8HR PRN Hydrocodone-Acetaminophen 10-325 mg Tab 1 Tab PO Q4-6H PRN Reported Hydrocodone-Acetaminophen 7.5 Mg-325 Mg Tab 2 Tab PO Q4H PRN Pantoprazole (Pantoprazole Sodium) 20 Mg Tab 20 Mg PO DAILY Morphabond ER 12 HR (Morphine Sulfate) 30 Mg Tab 30 Mg PO Q12H Review of Systems Except as stated in HPI: all other systems reviewed are Neg Physical Exam Narrative GENERAL: Well-developed cachectic, no obvious distress. SKIN: Focused skin assessment warm/dry. HEAD: Atraumatic. Normocephalic. EYES: Pupils equal and round. No scleral icterus. No injection or drainage. ENT: No nasal bleeding or discharge. Mucous membranes pink and moist. NECK: Trachea midline. No JVD. CARDIOVASCULAR: Regular rate and rhythm. No murmur appreciated. RESPIRATORY: No accessory muscle use. Clear to auscultation. Breath sounds equal bilaterally. GASTROINTESTINAL: Abdomen soft, non-tender, nondistended. Somewhat tympanic to percussion. No rebound no percussive tenderness hepatic and splenic margins not palpable. MUSCULOSKELETAL: No obvious deformities. No clubbing. No cyanosis. No edema. NEUROLOGICAL: Awake and alert. No obvious cranial nerve deficits. Motor grossly within normal limits. Normal speech. PSYCHIATRIC: Appropriate mood and affect; insight and judgment normal. Data Data Last Documented VS Vital Signs Date Time Temp Pulse Resp B/P (MAP) Pulse Ox O2 Delivery O2 Flow Rate FiO2 08/14/17 15:28 99.1 101 23 112/57 (75) 94 Nasal Cannula 2.00 Orders Orders Complete Blood Count With Diff (08/14/17 10:31) Comprehensive Metabolic Panel (08/14/17 10:31) Iv Access Insert/Monitor (08/14/17 10:31) Ecg Monitoring (08/14/17 10:31) Oximetry (08/14/17 10:31) Morphine Inj (Morphine Inj) (08/14/17 10:45) Sodium Chlor 0.9% 1000 Ml Inj (Ns 1000 M (08/14/17 10:31) Sodium Chloride 0.9% Flush (Ns Flush) (08/14/17 10:45) Ct Abd/Pel W Iv Contrast(Rout) (08/14/17 ) Ondansetron Inj (Zofran Inj) (08/14/17 11:30) Urinalysis - C+S If Indicated (08/14/17 11:17) Iohexol 350 Inj (Omnipaque 350 Inj) (08/14/17 13:33) Ct Brain W/O Iv Contrast(Rout) (08/14/17 ) Morphine Inj (Morphine Inj) (08/14/17 16:15) Consult Medical Oncology (08/14/17 ) Consult Palliative Care (08/14/17 ) Hospice Consult (08/14/17 16:11) (Hub Use Only)Inp Phy Cons/Ref (08/14/17 ) (Hub Use Only)Inp Phy Cons/Ref (08/14/17 ) Admit Order (Ed Use Only) (08/14/17 ) Labs Laboratory Tests Test 08/14/17 10:45 08/14/17 15:20 White Blood Count 19.7 TH/MM3 Red Blood Count 4.05 MIL/MM3 Hemoglobin 11.7 GM/DL Hematocrit 35.1 % Mean Corpuscular Volume 86.6 FL Mean Corpuscular Hemoglobin 28.8 PG Mean Corpuscular Hemoglobin Concent 33.2 % Red Cell Distribution Width 16.7 % Platelet Count 683 TH/MM3 Mean Platelet Volume 7.1 FL Neutrophils (%) (Auto) 92.4 % Lymphocytes (%) (Auto) 2.7 % Monocytes (%) (Auto) 4.6 % Eosinophils (%) (Auto) 0.0 % Basophils (%) (Auto) 0.3 % Neutrophils # (Auto) 18.2 TH/MM3 Lymphocytes # (Auto) 0.5 TH/MM3 Monocytes # (Auto) 0.9 TH/MM3 Eosinophils # (Auto) 0.0 TH/MM3 Basophils # (Auto) 0.1 TH/MM3 CBC Comment DIFF FINAL Differential Comment Blood Urea Nitrogen 19 MG/DL Creatinine 0.69 MG/DL Random Glucose 85 MG/DL Total Protein 6.0 GM/DL Albumin 1.7 GM/DL Calcium Level 8.1 MG/DL Alkaline Phosphatase 562 U/L Aspartate Amino Transf (AST/SGOT) 103 U/L Alanine Aminotransferase (ALT/SGPT) 49 U/L Total Bilirubin 2.9 MG/DL Sodium Level 138 MEQ/L Potassium Level 3.8 MEQ/L Chloride Level 102 MEQ/L Carbon Dioxide Level 25.5 MEQ/L Anion Gap 11 MEQ/L Estimat Glomerular Filtration Rate 84 ML/MIN Urine Color ORANGE Urine Turbidity CLEAR Urine pH 6.5 Urine Specific [place] GREATER THAN 1.050 Urine Protein 30 mg/dL Urine Glucose (UA) NEG mg/dL Urine Ketones 10 mg/dL Urine Occult Blood MOD Urine Nitrite NEG Urine Bilirubin MOD Urine Urobilinogen 8.0 MG/DL Urine Leukocyte Esterase NEG Urine RBC 25 /hpf Urine WBC 7 /hpf Urine White Blood Cell Casts 3 /lpf Urine Mucus FEW /lpf Microscopic Urinalysis Comment CULT NOT INDICATED MDM Medical Decision Making Medical Screen Exam Complete: Yes Emergency Medical Condition: Yes Differential Diagnosis Abdominal pain, urinary tract infection, obstruction, metastatic disease. Narrative Course Patient room to the emergency department, daughters arrived and stated the patient has been having some sundowning syndrome and her pain is usually worse at night. They are concerned because she gets up takes pain medicine wonders a little bit but they do not think that she is safe at home because her cannot take care of her. We had a long discussion about her goals of therapy and she wants to be very aggressive with treatment of her cancer but she is not tolerating chemotherapy well in the past and has not been a surgical candidate past either. I did broach the subject of hospice and initially she is very opposed the idea but case management was able to convince her that she should have a consult. She may be a candidate for respite care. She is having some pain and did require 2 doses of morphine in the emergency department she does have some minimally elevated white blood cell count but apparently this is chronic for her. She was discussed with Dr. Osman who is on-call for medical oncology and states that she would be happy to see in consult with the patient required admission for pain control. After a long discussion with case management the patient and the daughters we agree that this is probably the best course for the patient at this time. Discussed with Dr. Shaw for admission Diagnosis Primary Impression: Abdominal pain Additional Impression: SIRS (systemic inflammatory response syndrome) Admitting Information Admitting Physician Requests: Observation Condition: Stable Rajesh Solano MD Aug 14, 2017 10:34
[2017-08-14] MEDS ORDERED: MORPHINE SULFATE 4 MG/ML INJ IV PUSH ONE ×2 (10:45→16:15)
[2017-08-14] MEDS: SODIUM CHLORIDE 0.9% FLUSH 10 ML FLUSH IV FLUSH PRN ×2 (10:52→16:52)
[2017-08-14 11:23] LABS: AUTOMATED NEUTROPHIL # 18.2 TH/MM3 (1.8-7.7); BASOPHIL # 0.1 TH/MM3 (0-0.2); BASOPHIL % 0.3 % (0.0-2.0); HEMATOCRIT 35.1 % (35.0-46.0); HEMOGLOBIN 11.7 GM/DL (11.6-15.3); LYMPH % 2.7 % (9.0-44.0); LYMPHOCYTE # 0.5 TH/MM3 (1.0-4.8); MEAN CELL VOLUME 86.6 FL (80.0-100.0); MEAN CORPUSCULAR HEMOGLOBIN 28.8 PG (27.0-34.0); MEAN CORPUSCULAR HGB CONC 33.2 % (32.0-36.0); MEAN PLATELET VOLUME 7.1 FL (7.0-11.0); MONO % 4.6 % (0.0-8.0); MONOCYTE # 0.9 TH/MM3 (0-0.9); NEUT % 92.4 % (16.0-70.0); PLATELET COUNT 683 TH/MM3 (150-450); RED BLOOD COUNT 4.05 MIL/MM3 (4.00-5.30); RED CELL DISTRIBUTION WIDTH 16.7 % (11.6-17.2); WHITE BLOOD COUNT 19.7 TH/MM3 (4.0-11.0)
[2017-08-14] MEDS ORDERED: ONDANSETRON HCL 4 MG/2 ML VIAL IV PUSH ONE (11:30)
[2017-08-14 11:47] LABS: ALKALINE PHOSPHATASE 562 U/L (45-117); ALT (GPT) 49 U/L (10-53); TOTAL BILIRUBIN ADULT 2.9 MG/DL (0.2-1.0)
[2017-08-14 11:49] LABS: ALBUMIN 1.7 GM/DL (3.4-5.0); AST (GOT) 103 U/L (15-37); BICARBONATE 25.5 MEQ/L (21.0-32.0); BLOOD UREA NITROGEN 19 MG/DL (7-18); CALCIUM 8.1 MG/DL (8.5-10.1); CHLORIDE 102 MEQ/L (98-107); CREATININE 0.69 MG/DL (0.50-1.00); GLOMERULAR FILTRATION RATE 84 ML/MIN (>89); GLUCOSE,RANDOM 85 MG/DL (74-106); SODIUM (NA) 138 MEQ/L (136-145)
[2017-08-14] MEDS ORDERED: IOHEXOL 350 MG/ML 10 ML VIAL (for RAD DIAG) IVCONTRAST ONE (13:33)
--- NOTE | 2017-08-14 13:56 | RADRPT ---
EXAM DATE/TIME: 08/14/2017 13:14 [facility] COMPARISON: CT ABDOMEN & PELVIS W CONTRAST, June 06, 2017, 13:48. INDICATIONS : Right lower abdomen pain and constipation for one week. IV CONTRAST: 72 cc Omnipaque 350 (iohexol) IV ORAL CONTRAST: No oral contrast ingested. RADIATION DOSE: 5.67 CTDIvol (mGy) MEDICAL HISTORY : Gastroesophageal reflux disease. Hepatitis B. endometrial cancer, uterine cancer SURGICAL HISTORY : Hysterectomy. ENCOUNTER: Initial ACUITY: 1 week PAIN SCALE: 7/10 LOCATION: Right lower quadrant TECHNIQUE: Volumetric scanning of the abdomen and pelvis was performed. Using automated exposure control and ad justment of the mA and/or kV according to patient size, radiation dose was kept as low as reasonably achievable to obtain optimal diagnostic quality images. DICOM format image data is available electro nically for review and comparison. FINDINGS: LOWER LUNGS: There are mild bilateral pleural effusions being worse on the left. There is accompanying areas of at electasis or consolidation of the posterior lung bases. LIVER: There is diffuse decreased attenuation to the liver. There are multiple ring-enhancing lesions seen t hroughout the liver. These measure up to 3.5 cm and clearly have increased in number and increased i n size. SPLEEN: Normal size without lesion. PANCREAS: Within normal limits. KIDNEYS: Normal in size and shape. There is no mass, stone or hydronephrosis. ADRENAL GLANDS: Within normal limits. VASCULAR: There is no aortic aneurysm. BOWEL/MESENTERY: There is enlargement of a mesenteric mass seen in the pelvis anteriorly measuring 18 cm in transverse dimension, 7.5 cm in AP dimension and extending over a 10.4 cm height. This is thought to represent omental caking. This extends posteriorly around the upper vaginal cuff and abuts the right lateral a spect of the distal sigmoid colon. ABDOMINAL WALL: Within normal limits. RETROPERITONEUM: There is persistent left periaortic adenopathy measuring up to 1.7 cm. This was present previously. T here are soft tissue masses adjacent to the external iliac regions bilaterally the pelvic sidewalls r epresenting either adenopathy or lateral extension of the mesenteric mass. These findings are new. BLADDER: No wall thickening or mass. REPRODUCTIVE: Within normal limits. INGUINAL: There is no lymphadenopathy or hernia. MUSCULOSKELETAL: There is prominent degenerative change at the left hip. There is some degenerative change of the lowe r lumbar spine. Focal bone lesions are not seen. CONCLUSION: 1. Worsening of mental/mesenteric mass in the pelvis. It is clearly enlarged. It abuts the pelvic angelic e barth, vaginal cuff and right lateral aspect of the sigmoid colon. 2. Worsening metastatic disease throughout the liver. 3. Hepatic steatosis. 4. Mild bilateral pleural effusions being worse on the left with accompanying areas of atelectasis or consolidation. 5. There are prominent degenerative change of the left hip joint. Ruy Yañez MD on August 14, 2017 at 13:41 Board Certified Radiologist. This report was verified electronically.
--- NOTE | 2017-08-14 14:51 | RADRPT ---
EXAM DATE/TIME: 08/14/2017 14:34 [facility] COMPARISON: No previous studies available for comparison. INDICATIONS : Tumor. RADIATION DOSE: 56.35 CTDIvol (mGy) MEDICAL HISTORY : Hepatitis B. Endometrial ca, uterine, chemo, rad tx SURGICAL HISTORY : Hysterectomy. ENCOUNTER: Initial ACUITY: 1 day PAIN SCALE: 0/10 LOCATION: cranial TECHNIQUE: Multiple contiguous axial images were obtained of the head. Using automated exposure control and adj ustment of the mA and/or kV according to patient size, radiation dose was kept as low as reasonably a chievable to obtain optimal diagnostic quality images. DICOM format image data is available electro nically for review and comparison. FINDINGS: CEREBRUM: The ventricles are normal for age. No evidence of midline shift, mass lesion, hemorrhage or acute in farction. No extra-axial fluid collections are seen. POSTERIOR FOSSA: The cerebellum and brainstem are intact. The 4th ventricle is midline. The cerebellopontine angle i s unremarkable. EXTRACRANIAL: The visualized portion of the orbits is intact. SKULL: The calvaria is intact. No evidence of skull fracture. CONCLUSION: No acute disease. Ruy Yañez MD on August 14, 2017 at 14:48 Board Certified Radiologist. This report was verified electronically.
[2017-08-14 16:03] LABS: BILIRUBIN, URINE MOD (NEG); BLOOD, URINE MOD (NEG); GLUCOSE,URINE NEG (NEG); KETONE, URINE 10 mg/dL (NEG); MUCUS URINE FEW /lpf (OCC); NITRITE,URINE NEG (NEG); PH, URINE 6.5 (5.0-8.5); URINE LEUKOCYTE ESTERASE NEG (NEG); WHITE BLOOD CELL CAST, URINE 3 /lpf
[2017-08-14 16:05] LABS: URINE COLOR ORANGE (YELLW/STRAW)
[2017-08-14] MEDS ORDERED: BISACODYL 10 MG SUPP RECTAL PRN (18:00)
[2017-08-14] MEDS ORDERED: MAGNESIUM HYDROXIDE SUSP 30 ML CUP PO PRN (18:00)
[2017-08-14] MEDS ORDERED: NALOXONE HCL 0.4 MG/ML AMP IV PUSH PRN (18:00)
[2017-08-14] MEDS ORDERED: ACETAMINOPHEN 325 MG TAB PO PRN (18:00)
[2017-08-14] MEDS ORDERED: ONDANSETRON HCL 4 MG/2 ML VIAL IVP PRN (18:00)
[2017-08-14] MEDS ORDERED: LACTULOSE SYRUP 20 GM/30 ML CUP PO PRN (18:00)
[2017-08-14] MEDS ORDERED: SENNOSIDES 8.6 MG TAB PO PRN (18:00)
[2017-08-14] MEDS ORDERED: SODIUM CHLORIDE 0.9% FLUSH 10 ML FLUSH IV FLUSH PRN (18:00)
[2017-08-14] MEDS ORDERED: ENOXAPARIN SODIUM 40 MG/0.4 ML SYRINGE SQ SCH (18:00)
[2017-08-14] MEDS ORDERED: LORazepam 0.5 MG TAB PO PRN (18:15)
--- NOTE | 2017-08-14 18:23 | HHI.HP ---
[facility] Derrick Pérez MD Admission Diagnosis Intractible Abdominal pain, SIRS. Diagnoses: (1) Endometrial ca Travel History International Travel<30 Days: No Contact w/Intl Traveler <30 Da: No Traveled to Known Affected Are: No History of Present Illness 72-year-old female with a history of metastatic uterine cancer who presents to the ER with the problem of intractable pain that was not well controlled with her current pain meds. She was recently placed on a combination of long-acting Oramorph and hydrocodone, but began wandering at night confused raiding the refrigerator, etc. her bladder with uterine cancer began last November (2016) shortly after which she underwent a radical hysterectomy followed by radiation treatments. In April 2017 she had a nodule that was externally palpable. That was surgically removed. CT scan in May 2017 showed recurrence of cancer. Shortly after that she suffered an infection and was hospitalized for a short period. She has not really regained her strength since then, has been generally weak, anemia has plagued her and she received 2 units of packed red blood cells 3 days ago. Her long-term plan is to regain her strength, regain some weight, manage her pain so that she can undergo chemotherapy for treatment of her uterine cancer. She has a PET scan scheduled for this Tuesday. She has been seeing Dr. Deandra Rivera as an outpatient. Review of Systems Constitutional: COMPLAINS OF: Weight loss, DENIES: Fever, Weight gain, Chills Endocrine: DENIES: Abnorml menstrual pattern, Polydipsia, Polyuria Eyes: DENIES: Blurred vision, Diplopia, Eye inflammation, Eye pain, Vision loss Ears, nose, mouth, throat: DENIES: Hearing loss, Vertigo, Oral lesions, Throat pain Respiratory: DENIES: Apneas, Cough, Snoring, Wheezing, Hemoptysis Cardiovascular: DENIES: Chest pain, Palpitations, Syncope Gastrointestinal: DENIES: Abdominal pain, Black stools, Bloody stools, Constipation, Diarrhea, Nausea, Vomiting Integumentary: DENIES: Abnormal pigmentation, Pruritus, Rash Hematologic/lymphatic: DENIES: Bruising, Lymphadenopathy Immunologic/allergic: DENIES: Eczema, Urticaria Neurologic: DENIES: Abnormal gait, Headache, Localized weakness, Paresthesias, Seizures, Speech Problems Psychiatric: COMPLAINS OF: Confusion, DENIES: Anxiety, Mood changes, Depression , Hallucinations, Suicidal Ideation Past Family Social History Past Medical History Endometrial cancer, pain, anxiety, depression, hepatitis B Past Surgical History Hysterectomy November 2016 Tonsillectomy as a child Allergies: Coded Allergies: No Known Allergies (Unverified Allergy, Unknown, 08/14/17) Family History Breast cancer Social History Occasional wine, no tobacco use Physical Exam Vital Signs Vital Signs Date Time Temp Pulse Resp B/P (MAP) Pulse Ox O2 Delivery O2 Flow Rate FiO2 08/14/17 18:00 20 08/14/17 15:28 99.1 101 23 112/57 (75) 94 Nasal Cannula 2.00 08/14/17 13:00 90 12 99/54 (69) 95 Nasal Cannula 2.00 08/14/17 12:19 Nasal Cannula 2.00 08/14/17 12:05 14 08/14/17 12:00 94 19 100/57 (71) 93 Room Air 08/14/17 11:00 104 26 121/64 (83) 94 Room Air 08/14/17 10:39 94 Room Air 08/14/17 10:38 106 22 113/59 (77) 92 Room Air 08/14/17 10:17 98.9 122 20 88/54 (65) 95 92/58 (69) Physical Exam GENERAL: Thin appearing female, recent weight loss, dry mouth, cognitively intact SKIN: No rashes, ecchymoses or lesions. Cool and dry. HEAD: Atraumatic. Normocephalic. No temporal or scalp tenderness. EYES: Pupils equal round and reactive. Extraocular motions intact. No scleral icterus. No injection or drainage. ENT: Nose without bleeding, purulent drainage or septal hematoma. Throat without erythema, tonsillar hypertrophy or exudate. Uvula midline. Airway patent. NECK: Trachea midline. No JVD or lymphadenopathy. Supple, nontender, no meningeal signs. CARDIOVASCULAR: Tachycardia without murmurs, gallops, or rubs. RESPIRATORY: Clear to auscultation. Breath sounds equal bilaterally. No wheezes , rales, or rhonchi. GASTROINTESTINAL: Abdomen soft, non-tender, nondistended. No hepato-splenomegaly , or palpable masses. No guarding. MUSCULOSKELETAL: 1+ edema to mid [place]. No joint tenderness, effusion, or edema noted. No calf tenderness. Negative Homans sign bilaterally. NEUROLOGICAL: Awake and alert. Cranial nerves II through XII intact. Motor and sensory grossly within normal limits. Five out of 5 muscle strength in all muscle groups. Normal speech. Laboratory Laboratory Tests Test 08/14/17 10:45 08/14/17 15:20 White Blood Count 19.7 Red Blood Count 4.05 Hemoglobin 11.7 Hematocrit 35.1 Mean Corpuscular Volume 86.6 Mean Corpuscular Hemoglobin 28.8 Mean Corpuscular Hemoglobin Concent 33.2 Red Cell Distribution Width 16.7 Platelet Count 683 Mean Platelet Volume 7.1 Neutrophils (%) (Auto) 92.4 Lymphocytes (%) (Auto) 2.7 Monocytes (%) (Auto) 4.6 Eosinophils (%) (Auto) 0.0 Basophils (%) (Auto) 0.3 Neutrophils # (Auto) 18.2 Lymphocytes # (Auto) 0.5 Monocytes # (Auto) 0.9 Eosinophils # (Auto) 0.0 Basophils # (Auto) 0.1 CBC Comment DIFF FINAL Differential Comment Blood Urea Nitrogen 19 Creatinine 0.69 Random Glucose 85 Total Protein 6.0 Albumin 1.7 Calcium Level 8.1 Alkaline Phosphatase 562 Aspartate Amino Transf (AST/SGOT) 103 Alanine Aminotransferase (ALT/SGPT) 49 Total Bilirubin 2.9 Sodium Level 138 Potassium Level 3.8 Chloride Level 102 Carbon Dioxide Level 25.5 Anion Gap 11 Estimat Glomerular Filtration Rate 84 Urine Color ORANGE Urine Turbidity CLEAR Urine pH 6.5 Urine Specific [place] GREATER THAN 1.050 Urine Protein 30 Urine Glucose (UA) NEG Urine Ketones 10 Urine Occult Blood MOD Urine Nitrite NEG Urine Bilirubin MOD Urine Urobilinogen 8.0 Urine Leukocyte Esterase NEG Urine RBC 25 Urine WBC 7 Urine White Blood Cell Casts 3 Urine Mucus FEW Microscopic Urinalysis Comment CULT NOT INDICATED Result Diagram: 08/14/17 1045 08/14/17 1045 Caprini VTE Risk Assessment Caprini VTE Risk Assessment: Mod/High Risk (score >= 2) Caprini Risk Assessment Model Point Value = 1 Point Value = 2 Point Value = 3 Point Value = 5 Age 41-60 Minor surgery BMI > 25 kg/m2 Swollen legs Varicose veins or History of unexplained or recurrent spontaneous Oral contraceptives or hormone replacement Sepsis (< 1 month) Serious lung disease, including pneumonia (< 1 month) Abnormal pulmonary function Acute myocardial infarction Congestive heart failure (< 1 month) History of inflammatory bowel disease Medical patient at bed rest Age 61-74 Arthroscopic surgery Major open surgery (> 45 min) Laparoscopic surgery (> 45 min) Malignancy Confined to bed (> 72 hours) Immobilizing plaster cast Central venous access Age >= 75 History of VTE Family history of VTE Factor V Leiden Prothrombin [id number] Lupus anticoagulant Anticardiolipin antibodies Elevated serum homocysteine Heparin-induced thrombocytopenia Other congenital or acquired thrombophilia Stroke (< 1 month) Elective arthroplasty Hip, pelvis, or leg fracture Acute spinal cord injury (< 1 month) Prophylaxis Regimen Total Risk Factor Score Risk Level Prophylaxis Regimen 0-1 Low Early ambulation 2 Moderate Order ONE of the following: *Sequential Compression Device (SCD) *Heparin 5000 units SQ BID 3-4 Higher Order ONE of the following medications: *Heparin 5000 units SQ TID *Enoxaparin/Lovenox 40 mg SQ daily (WT < 150 kg, CrCl > 30 mL/min) *Enoxaparin/Lovenox 30 mg SQ daily (WT < 150 kg, CrCl > 10-29 mL/min) *Enoxaparin/Lovenox 30 mg SQ BID (WT < 150 kg, CrCl > 30 mL/min) AND/OR *Sequential Compression Device (SCD) 5 or more Highest Order ONE of the following medications: *Heparin 5000 units SQ TID (Preferred with Epidurals) *Enoxaparin/Lovenox 40 mg SQ daily (WT < 150 kg, CrCl > 30 mL/min) *Enoxaparin/Lovenox 30 mg SQ daily (WT < 150 kg, CrCl > 10-29 mL/min) *Enoxaparin/Lovenox 30 mg SQ BID (WT < 150 kg, CrCl > 30 mL/min) AND *Sequential Compression Device (SCD) Assessment and Plan Problem List: (1) Intractable pain ICD Code: R52 - Pain, unspecified (2) Endometrial ca ICD Code: C54.1 - Malignant neoplasm of endometrium Status: Chronic (3) Weight loss ICD Code: R63.4 - Abnormal weight loss Assessment and Plan Intractable pain Management using Oramorph and hydrocodone resulted in sleepwalking and confusion Patient stopped taking medications and has been in intractable pain throughout today and yesterday Further history revealed that she had had success with OxyContin in the past Start OxyContin at 20 mg every 12 hours, titrate as needed Morphine 2 mg every 3 hours for breakthrough pain Palliative medicine consult Endometrial cancer Patient has been battling this since November 2016 previously underwent radiation and single round of chemo She wishes to continue her treatment but is too weak at this time, and in too much pain PET scan is scheduled for this Tuesday Consult oncology (Dr. Chadwick Rivera) Weight loss We will defer to palliative medicine to address this once pain is under control to reduce risk of medication side effects Anxiety Patient takes home dose of Ativan 0.5 mg as needed DVT prophylaxis Vimal Knapp MD Aug 14, 2017 18:22
[2017-08-14] MEDS: MORPHINE SULFATE 2 MG/ML INJ IV PRN (18:25)
[2017-08-14] MEDS: oxyCODONE HCL 20 MG CONTROLLED RELEASE TAB PO SCH (20:51)
[2017-08-14] MEDS: SODIUM CHLORIDE 0.9% FLUSH 10 ML FLUSH IV FLUSH SCH (20:51)
[2017-08-15 03:19] VITALS: BP 102/56; PULSE 102; RESP 18; TEMP 98.1; O2SAT 94
[2017-08-15] MEDS: MORPHINE SULFATE 2 MG/ML INJ IV PRN ×2 (03:52→08:12)
[2017-08-15] MEDS: SODIUM CHLORIDE 0.9% FLUSH 10 ML FLUSH IV FLUSH PRN (03:52)
[2017-08-15 04:00] VITALS: PULSE 91
[2017-08-15 05:31] LABS: BICARBONATE 23.6 MEQ/L (21.0-32.0); CALCIUM 7.8 MG/DL (8.5-10.1); CREATININE 0.61 MG/DL (0.50-1.00)
[2017-08-15 06:01] LABS: AUTOMATED NEUTROPHIL # 16.6 TH/MM3 (1.8-7.7); BASOPHIL % 0.2 % (0.0-2.0); HEMATOCRIT 32.4 % (35.0-46.0); HEMOGLOBIN 10.7 GM/DL (11.6-15.3); LYMPH % 5.5 % (9.0-44.0); MEAN CELL VOLUME 87.6 FL (80.0-100.0); MEAN CORPUSCULAR HEMOGLOBIN 28.8 PG (27.0-34.0); MEAN CORPUSCULAR HGB CONC 32.9 % (32.0-36.0); MEAN PLATELET VOLUME 7.3 FL (7.0-11.0); MONO % 5.4 % (0.0-8.0); NEUT % 88.9 % (16.0-70.0); PLATELET COUNT 595 TH/MM3 (150-450); RED BLOOD COUNT 3.69 MIL/MM3 (4.00-5.30); RED CELL DISTRIBUTION WIDTH 17.1 % (11.6-17.2); WHITE BLOOD COUNT 18.7 TH/MM3 (4.0-11.0)
[2017-08-15 07:00] VITALS: PULSE 94
[2017-08-15 07:22] VITALS: BP 115/61; PULSE 104; RESP 20; TEMP 98.3; O2SAT 95
[2017-08-15] MEDS ORDERED: MEGESTROL ACETATE SUSP 400 MG/10 ML CUP PO SCH (09:00)
[2017-08-15] MEDS: SODIUM CHLORIDE 0.9% FLUSH 10 ML FLUSH IV FLUSH SCH (09:00)
[2017-08-15] MEDS: oxyCODONE HCL 20 MG CONTROLLED RELEASE TAB PO SCH (09:04)
--- NOTE | 2017-08-15 09:09 | MB ---
cc: Chadwick Rivera MD DATE: 08/15/2017 ATTENDING PHYSICIAN: Dr. Shaw REASON FOR CONSULTATION: Oncology consulted to render an opinion regarding a patient with metastatic endometrial cancer, admitted with confusion and intractable pain. HISTORY OF PRESENT ILLNESS: The patient is a very pleasant 72-year-old female with a history of metastatic endometrial cancer who presented to the hospital with increased confusion after she started taking Oramorph. She will stop the medication, developed intractable pain and was brought into the hospital. She has been under the care of Dr. Liriano. She was diagnosed with endometrial cancer a year ago and underwent a complete hysterectomy in November 2016. She received consolidation and radiation completed around 04/2017. She developed recurrent endometrial cancer and presented with an abdominal wall nodule. She was given a cycle of carboplatin and Taxol in May 2017 and tolerated it poorly. She was admitted to the intensive care unit after the chemotherapy. She has not been doing well since that time. She is progressively getting weaker and had lost about 30 pounds. I saw her for the first time last Tuesday for evaluation of persistent leukocytosis and anemia. I suspect that her leukocytosis is due to a progression of metastatic endometrial cancer. I sent her a PET-CT scan, but has not been done yet. She also complained of abdominal pain and was taking at least 6 hydrocodone a day. I have started her on a long-acting morphine and asked her to use hydrocodone for breakthrough pain. Unfortunately, she developed hallucinations and confusion with the long-acting morphine. Since stopping the morphine, her mental status is back to baseline. She has been getting intravenous morphine while in the hospital. She still complains of pain, but it is better controlled. She denies any fever or chills. Denies chest pain. Denies any shortness of breath or cough. She has constipation. She has decreased urine output and has dark urine. She denies any bone pain. She denies any headache. Denies focal numbness or weakness. PAST MEDICAL HISTORY: Endometrial cancer as above, anxiety, hepatitis B, herpes, lyme disease, migraine headaches, osteomyelitis of the left leg, decubitus ulcer, vaginal bleeding. PAST SURGICAL HISTORY: Colonoscopy, port placement, tonsillectomy, radical hysterectomy with lymph node dissection in 2017, surgical intervention for left leg osteomyelitis. ALLERGIES: NO KNOWN DRUG ALLERGIES. FAMILY HISTORY: Has 4 sisters, 1 alive, 3 . One sister had breast cancer. SOCIAL HISTORY: She lives with her . She never smoked. She used to drink occasionally. ALLERGIES: NO KNOWN DRUG ALLERGIES. MEDICATIONS: Megace, Oxycontin, morphine intravenous, Lovenox. REVIEW OF SYSTEMS: CONSTITUTIONAL: As above. EYES: Negative. ENT: Negative. CARDIOVASCULAR: No chest pressure or palpitations. RESPIRATORY: Denies shortness of breath or cough. GASTROINTESTINAL: As above. GENITOURINARY: As above. MUSCULOSKELETAL: As above. HEMATOLOGIC: As above. ENDOCRINE: Negative. HEMATOLOGY: As above. NEUROLOGIC knee as above. PSYCHIATRIC: Has anxiety. PHYSICAL EXAM: VITAL SIGNS: Temperature 98.3, blood pressure 115/61, O2 saturation 95% on 2 liter nasal cannula. GENERAL: She is alert and oriented x 3. She is cachectic. HEENT: Atraumatic, normocephalic. Pupils are equal, round, reactive to light. Oropharynx dry mucosa. No lesions. NECK: No thyromegaly. No palpable mass. LYMPHATIC: No palpable cervical, clavicular, axillary, or inguinal lymph nodes. CARDIOVASCULAR: Regular S1, S2. No murmur. LUNGS: Clear to auscultation anteriorly. ABDOMEN: Soft, very firm. The lower abdomen is tender. No rebound or rigidity. Positive bowel sounds. EXTREMITIES: 1+ bilateral extremity edema. No calf tenderness. SKIN: No rash or petechia. A grade 2 decubitus ulcer in the sacrum. NEUROLOGIC: Nonfocal. LABORATORY DATA: WBC 18.7, hemoglobin 10.7, platelet count 595, creatinine 0.61, total bilirubin 2.9, AST 103. CA-125 is 306. ASSESSMENT AND PLAN: 1. Metastatic endometrial cancer. She was diagnosed a year ago and underwent hysterectomy followed by radiation. She developed abdominal wall metastatic disease and received 1 cycle of carboplatin and Taxol in 05/2017. She tolerated it poorly and was admitted to the intensive care unit. She has not been doing well since then. She has lost 30 pounds. She has increased abdominal pain. Her performance status is declining. She has been having increased abdominal pain and is not well controlled with hydrocodone. I started her on long-acting morphine and she developed confusion and hallucination. She came to the hospital yesterday. A CT of the abdomen and pelvis showed worsening mesenteric mass in the pelvis which has significantly enlarged. It abuts the pelvic sidewall, vaginal cuff in the right lateral aspect of the sigmoid colon. There is also worsening metastatic disease throughout the liver. The patient has a poor performance status of 3. She is cachectic. I do not think she is a candidate for further chemotherapy. I have talked to the patient regarding her CT findings and prognosis. She understands the poor prognosis and understands that she is not strong enough for chemotherapy. We will check with Dr. Liriano to see if she could be started on Megace. I talked to the patient about getting palliative care involved to help control her symptoms and also consult hospice for comfort care. She agrees with talking to hospice. All she wants is to go home to be with family. 2. Abdominal pain due to progression of metastatic endometrial cancer. She was started on Oxycontin and seems to be tolerating it better. She could use oxycodone in between for breakthrough pain. 3. Decubitus ulcer. She has a grade 2 decubitus ulcer. We will get a wound care consult. 4. Leukocytosis due to a leukemoid reaction. I think this is due to underlying metastatic endometrial cancer. She has no evidence of infection. 5. Anemia due to anemia of chronic disease. Hemoglobin overall is stable. She has no evidence of bleeding. RECOMMENDATIONS: 1. I had an extensive discussion with the patient. 2. Continue to titrate pain medication. 3. Start Megace once we have a chance to talk to Dr. Liriano. 4. Review CT scan with the patient. 5. Await palliative care consult and hospice consult. 6. Consult wound care. 6. Continue DVT prophylaxis with Lovenox. Thank you, Dr. Shaw, for asking me to see this patient. MD SKIP Dimas/ASHLEIGH , 08:16 AM , 09:08 AM PETE
--- NOTE | 2017-08-15 10:28 | PD.CONS ---
Consult Service Palliative Care . Consult Requested By Dr. Rivera . Primary Care Physician Derrick Pérez MD . Reason for Consultation a. To assist with evaluation and management of symptoms including: abdominal pain; constipation; confusion; cachexia b. To assist medical decision maker(s) with: better understanding of current medical conditions; weighing benefits/burdens of medical treatment options; making medical treatment decisions. . HPI History of Present Illness Ms. Ortiz is an unfortunate 72-year-old female with a known history of metastatic endometrial cancer who presented to the emergency department with intractable abdominal pain and confusion on 08/14/17. The patient was diagnosed with her cancer approximately 1 year ago and underwent total hysterectomy with lymph node dissection in November 2016. She completed radiation therapy in April/2017. In spite of treatment, she developed a recurrence. She was given a combination of carboplatin and Taxol in May 2017 but ended up in the intensive care unit after receiving this chemotherapy. She has had progressive functional decline since then with a loss of about 30 pounds. She has had persistent leukocytosis and anemia requiring transfusions. Pain management has been an issue. She was not responding to as needed hydrocodone and she was recently started on long-acting morphine. The patient developed hallucinations and was wandering around her home at night confused. Since stopping the morphine though symptoms have improved. Nevertheless the patient remains with frequent #10 level pain. Pain is worse with movement. Vital signs in the emergency department at time of her emergency room presentation were as follows: Temperature 99.1; pulse 101; respiratory rate 23; blood pressure 112/57; pulse oximetry 94% on O2 via nasal cannula at 2 L a minute Initial physical examination by the emergency manager department showed the following: Patient was cachectic but appeared in no obvious distress. Cardiovascular and respiratory exams are unremarkable. Abdomen apparently was nontender and nondistended at that time but somewhat tympanic to percussion. Initial diagnostic testing revealed the following: * CBC showed WBC 19.7; hemoglobin 11.7; platelet count 683 * Chemistry profile showed sodium 138; potassium 3.8; chloride 102; CO2 25.5; anion gap 11; GFR 84; BUN 19; creatinine 0.69; glucose 85; calcium 8.1 * Liver function showed total bilirubin 2.9; alkaline phosphatase 562; AST 103; ALT 49; protein 6.0; albumin 1.7 * Urine was remarkable for moderate occult blood, moderate bilirubin. * CT of the head showed no acute disease * CT of the abdomen/pelvis showed worsening of the mesenteric mass in the pelvis which now abuts the pelvic sidewalls, vaginal cuff and sigmoid colon; worsening metastatic disease throughout the liver; hepatic steatosis; mild bilateral pleural effusions worse on the left The patient was admitted to the [facility]. Medical oncology was consulted. Medical oncology felt that given the patient's progression of disease in spite of aggressive therapy and given her current functional status, she was no longer a candidate for cancer directed treatments. Hospice was consulted and the patient and family spoke with hospice on .. They were informed about hospice services but did not choose hospice enrollment at that time. At time of my visit, patient continues to complain of very severe right lower Quadrant abdominal pain. She denies shortness of breath. She does report constipation and says she has not had a bowel movement in approximately 4 days. She reports that her urine has been dark colored but she has had no dysuria or frequency. . Function/Cognitive Trajectory Patient has had a steady decline in her functional status since her intensive care hospitalization in May following chemotherapy. She has become progressively weak. There is been substantial weight loss. There have been episodes of confusion. . Review of Systems ROS Limitations: Clinical Condition Constitutional: COMPLAINS OF: Fatigue, Weight loss, Change in appetite, Pain, Generalized weakness, Sleep problems, DENIES: Weight gain, Chills Endocrine: DENIES: Polydipsia, Polyuria, Polyphagia Eyes: DENIES: Eye pain, Vision loss Ears, nose, mouth, throat: DENIES: Hearing loss, Throat pain, Ear Pain, Running Nose, Epistaxis, Sinus Pain Respiratory: DENIES: Apneas, Cough, Wheezing, Hemoptysis, Sputum production, Shortness of breath Cardiovascular: COMPLAINS OF: Dyspnea on Exertion, Lower Extremity Edema, DENIES: Chest pain, Palpitations, Syncope, Claudication Gastrointestinal: COMPLAINS OF: Constipation, Diarrhea, Anorexia, Dyspepsia or heartburn, DENIES: Black stools, Bloody stools, Nausea, Vomiting, Difficulty Swallowing, Vomiting blood Genitourinary: COMPLAINS OF: Abnormal vaginal bleeding, Urinary incontinence, DENIES: Urinary frequency, Hematuria, Dysuria, Decreased stream Musculoskeletal: COMPLAINS OF: Joint Swelling, DENIES: Joint pain, Back pain, Neck pain Integumentary: DENIES: Pruritus, Breast masses Neurologic: DENIES: Headache, Paresthesias, Seizures, Tremor Psychiatric: COMPLAINS OF: Anxiety, Confusion, Depression, Hallucinations Past Family Social History Coded Allergies: No Known Allergies (Unverified Allergy, Unknown, 08/14/17) Past Medical History Endometrial cancer, pain, anxiety, depression, hepatitis B . Past Surgical History Radical Hysterectomy with lymph node dissection November 2016 Tonsillectomy as a child Port placement surgery for left leg osteomyelitis. . Reported Medications Pre-hospital medications included the following: Famotidine 20 Mg Tab 20 Mg PO DAILY Thera Tablet (Multivitamin with Folic Acid) 400 Mcg Tablet 1 Mg PO DAILY Phenergan (Promethazine HCl) 25 Mg Tablet 25 Mg PO Q4H PRN Ativan (Lorazepam) 0.5 Mg Tab 0.5 Mg PO Q8HR PRN Hydrocodone-Acetaminophen 10-325 mg Tab 1 Tab PO Q4-6H PRN Pantoprazole (Pantoprazole Sodium) 20 Mg Tab 20 Mg PO DAILY Morphabond ER 12 HR (Morphine Sulfate) 30 Mg Tab 30 Mg PO Q12H . Current Medications Medications (Trade) Dose Ordered Sig/Vida Route Start Time Stop Time Status Last Admin (NS Flush) 2 ml UNSCH PRN IV FLUSH 08/14/17 10:45 08/15/17 03:52 Sodium Chloride 1,000 ml @ 42 mls/hr [id number] IV 08/14/17 18:00 08/14/17 18:24 (NS Flush) 2 ml UNSCH PRN IV FLUSH 08/14/17 18:00 (NS Flush) 2 ml BID IV FLUSH 08/14/17 21:00 (Tylenol) 650 mg Q4H PRN PO 08/14/17 18:00 (Zofran Inj) 4 mg Q6H PRN IVP 08/14/17 18:00 (Lovenox Inj) 40 mg Q24H SQ 08/14/17 18:00 08/14/17 18:25 (Narcan Inj) 0.4 mg UNSCH PRN IV PUSH 08/14/17 18:00 (Milk Of Magnesia Liq) 30 ml Q12H PRN PO 08/14/17 18:00 (Senokot) 17.2 mg Q12H PRN PO 08/14/17 18:00 (Dulcolax Supp) 10 mg DAILY PRN RECTAL 08/14/17 18:00 (Lactulose Liq) 30 ml DAILY PRN PO 08/14/17 18:00 08/15/17 09:51 (OxyCONTIN CR) 20 mg Q12HR PO 08/14/17 21:00 08/15/17 09:04 (Morphine Inj) 2 mg Q3H PRN IV 08/14/17 18:15 08/15/17 08:12 (Ativan) 0.5 mg Q8H PRN PO 08/14/17 18:15 (Megace Liq) 400 mg DAILY PO 08/15/17 09:00 08/15/17 09:51 . Family History Father of [place] Mother of complications of [place] A sister had breast cancer . Substance Use Tobacco: Lifetime non-smoker Alcohol: Occasional wine. No history of abuse Prescription med abuse: No history of abuse Illicits: No use of illicits. . Psychosocial History Patient is originally from [place]. First came to [place] at age 18. Has lived here off and on since 1962. 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 x 1. Has been 30 years. No children of her own. She is very close to her stepdaughter ('s daughter from prior marriage). Lives with her who is frail and hard of hearing. . Spiritual/Cultural Factors Roman Catholic. . Living Will: Never completed Health Care Surrogate: Copy in medical record Durable Power of Pump Servicer Supervisor: Never completed Date completed: HCS is dated 11/23/16 . Health Care Surrogate(s): Health care surrogate primary is her -- Huy Ortiz. Alternate HCS is her step-daughter -- Parvin Lomas . Documented care wishes: No written documentation of health care goals / preferences. . Today's verbally stated goals: Patient is agreeable to hospice at time I talk to her. . Family/friends goals: I reviewed the notes of Dr. Rivera regarding patient's inability to tolerate more cancer directed treatments at this time. and stepdaughter and patient all agree that hospice is the best option at this time. . Ethical and Legal Issues Patient has intermittent confusion. Recommend shared decision making with health care surrogates. . Physical Exam Vital Signs Date Time Temp Pulse Resp B/P (MAP) Pulse Ox O2 Delivery O2 Flow Rate FiO2 08/15/17 07:22 98.3 104 20 115/61 (79) 95 08/15/17 04:00 91 08/15/17 03:57 14 08/15/17 03:19 98.1 102 18 102/56 (71) 94 08/14/17 23:48 98.9 95 18 102/58 (73) 95 08/14/17 21:51 14 08/14/17 20:00 08/14/17 19:52 99.0 101 18 103/53 (70) 96 08/14/17 19:00 108 16 148/68 (94) 95 Room Air 08/14/17 18:31 95 18 100/55 (70) 96 Room Air 08/14/17 18:00 20 08/14/17 17:15 94 13 123/61 (81) 95 Nasal Cannula 2.00 08/14/17 15:28 99.1 101 23 112/57 (75) 94 Nasal Cannula 2.00 08/14/17 13:00 90 12 99/54 (69) 95 Nasal Cannula 2.00 08/14/17 12:19 Nasal Cannula 2.00 08/14/17 12:05 14 08/14/17 12:00 94 19 100/57 (71) 93 Room Air 08/14/17 11:00 104 26 121/64 (83) 94 Room Air 08/14/17 10:39 94 Room Air 08/14/17 10:38 106 22 113/59 (77) 92 Room Air 08/14/17 10:17 98.9 122 20 88/54 (65) 95 92/58 (69) . Exam CONSTITUTIONAL/GENERAL: Awake, alert, cachectic, frail appearing. Complaining of abdominal pain at time of my visit. TUBES/LINES/DRAINS: Port right chest. Peripheral IV. SKIN: No jaundice, rashes, or lesions. Erythematous area on back. No wounds seen anteriorly. Skin temperature appropriate. Not diaphoretic. HEAD: Atraumatic. Normocephalic. EYES: Pupils equal and round and reactive. Extraocular motions intact. No scleral icterus. No injection or drainage. Fundi not examined. ENT: Hearing grossly normal. Nose without bleeding or purulent drainage. Throat without visible erythema, exudates, masses, or lesions. NECK: Trachea midline. Supple, nontender. No palpable thyroid enlargement or nodularity. CARDIOVASCULAR: Regular rate and rhythm without murmurs, gallops, or rubs. No JVD. Peripheral pulses symmetric. RESPIRATORY/CHEST: Symmetric, unlabored respirations. Clear to auscultation. Breath sounds equal bilaterally. No wheezes, rales, or rhonchi. GASTROINTESTINAL: Abdomen generally soft with some guarding in the RLQ. No rebound. Tenderness in RLQ. . No hepato-splenomegaly, or palpable masses. Bowel sounds present. GENITOURINARY: Without palpable bladder distension. MUSCULOSKELETAL: Extremities without clubbing, cyanosis. Bilateral pitting LE edema to shins. No calf tenderness. No mottling. LYMPHATICS: No palpable cervical or supraclavicular adenopathy. NEUROLOGICAL: Awake and alert. Motor and sensory grossly within normal limits. Follows commands. Some mild intermittent confusion. Moves all extremities. PSYCHIATRIC: No obvious anxiety/depression. No apparent hallucinations or other psychotic thought process. . Diagnostic Tests Laboratory Laboratory Tests Test 08/14/17 10:45 08/14/17 15:20 08/15/17 04:12 White Blood Count 19.7 TH/MM3 (4.0-11.0) 18.7 TH/MM3 (4.0-11.0) Red Blood Count 4.05 MIL/MM3 (4.00-5.30) 3.69 MIL/MM3 (4.00-5.30) Hemoglobin 11.7 GM/DL (11.6-15.3) 10.7 GM/DL (11.6-15.3) Hematocrit 35.1 % (35.0-46.0) 32.4 % (35.0-46.0) Mean Corpuscular Volume 86.6 FL (80.0-100.0) 87.6 FL (80.0-100.0) Mean Corpuscular Hemoglobin 28.8 PG (27.0-34.0) 28.8 PG (27.0-34.0) Mean Corpuscular Hemoglobin Concent 33.2 % (32.0-36.0) 32.9 % (32.0-36.0) Red Cell Distribution Width 16.7 % (11.6-17.2) 17.1 % (11.6-17.2) Platelet Count 683 TH/MM3 (150-450) 595 TH/MM3 (150-450) Mean Platelet Volume 7.1 FL (7.0-11.0) 7.3 FL (7.0-11.0) Neutrophils (%) (Auto) 92.4 % (16.0-70.0) 88.9 % (16.0-70.0) Lymphocytes (%) (Auto) 2.7 % (9.0-44.0) 5.5 % (9.0-44.0) Monocytes (%) (Auto) 4.6 % (0.0-8.0) 5.4 % (0.0-8.0) Eosinophils (%) (Auto) 0.0 % (0.0-4.0) 0.0 % (0.0-4.0) Basophils (%) (Auto) 0.3 % (0.0-2.0) 0.2 % (0.0-2.0) Neutrophils # (Auto) 18.2 TH/MM3 (1.8-7.7) 16.6 TH/MM3 (1.8-7.7) Lymphocytes # (Auto) 0.5 TH/MM3 (1.0-4.8) 1.0 TH/MM3 (1.0-4.8) Monocytes # (Auto) 0.9 TH/MM3 (0-0.9) 1.0 TH/MM3 (0-0.9) Eosinophils # (Auto) 0.0 TH/MM3 (0-0.4) 0.0 TH/MM3 (0-0.4) Basophils # (Auto) 0.1 TH/MM3 (0-0.2) 0.0 TH/MM3 (0-0.2) CBC Comment DIFF FINAL DIFF FINAL Differential Comment Blood Urea Nitrogen 19 MG/DL (7-18) 17 MG/DL (7-18) Creatinine 0.69 MG/DL (0.50-1.00) 0.61 MG/DL (0.50-1.00) Random Glucose 85 MG/DL (74-106) 67 MG/DL (74-106) Total Protein 6.0 GM/DL (6.4-8.2) Albumin 1.7 GM/DL (3.4-5.0) Calcium Level 8.1 MG/DL (8.5-10.1) 7.8 MG/DL (8.5-10.1) Alkaline Phosphatase 562 U/L (45-117) Aspartate Amino Transf (AST/SGOT) 103 U/L (15-37) Alanine Aminotransferase (ALT/SGPT) 49 U/L (10-53) Total Bilirubin 2.9 MG/DL (0.2-1.0) Sodium Level 138 MEQ/L (136-145) 139 MEQ/L (136-145) Potassium Level 3.8 MEQ/L (3.5-5.1) 3.7 MEQ/L (3.5-5.1) Chloride Level 102 MEQ/L (98-107) 103 MEQ/L (98-107) Carbon Dioxide Level 25.5 MEQ/L (21.0-32.0) 23.6 MEQ/L (21.0-32.0) Anion Gap 11 MEQ/L (5-15) 12 MEQ/L (5-15) Estimat Glomerular Filtration Rate 84 ML/MIN (>89) 97 ML/MIN (>89) Urine Color ORANGE (YELLW/STRAW) Urine Turbidity CLEAR (CLEAR) Urine pH 6.5 (5.0-8.5) Urine Specific Line [place] GREATER THAN 1.050 Urine Protein 30 mg/dL (NEG-TRACE) Urine Glucose (UA) NEG mg/dL (NEG) Urine Ketones 10 mg/dL (NEG) Urine Occult Blood MOD (NEG) Urine Nitrite NEG (NEG) Urine Bilirubin MOD (NEG) Urine Urobilinogen 8.0 MG/DL (LESS THAN Urine Leukocyte Esterase NEG (NEG) Urine RBC 25 /hpf (0-3) Urine WBC 7 /hpf (0-5) Urine White Blood Cell Casts 3 /lpf (NONE) Urine Mucus FEW /lpf (OCC) Microscopic Urinalysis Comment CULT NOT INDICATED Result Diagram: 08/15/1741108/15/17411 Patient/Family Conference Issues Discussed: * Palliative care role, purpose, approach * Additional medical, psychosocial, and spiritual history * Patients general health, functional status, and cognitive changes in the months leading up to the current hospitalization * Patient/family understanding of the current medical problems * Patient/family understanding of prognosis * Patients goals of care as best understood from advance directives and/or conversations and/or values * Current medical treatment options and benefits/burdens of those options * Likely scenarios comparing ongoing aggressive care with a transition to comfort measures only * Questions answered to the best of my ability * Palliative care contact information provided Assessment and Plan Disease Oriented Problem List: (1) Endometrial ca Comment: with mets to liver and mesentery. Main mass abuts sigmoid colon and vaginal cuff. . Symptom Scale: (1) Cachexia 0-10 Scale: Unable to quantify (2) Pain 0-10 Scale: 10 (3) Confusion 0-10 Scale: 3 (4) Constipation 0-10 Scale: Unable to quantify Comment: No bowel movement in 4 days. . (5) Edema 0-10 Scale: 3 Pertinent Non-Medical Issues Psychosocial: Lives at home with elderly who is frail and hard of hearing. Stepdaughter is primary social-support. Spiritual: Roman Catholic background. Legal: Has health care surrogate designation, but no living will. Ethical issues impacting care: Because of intermittent confusion, needs shared decision making. . Important Contacts Huy Ortiz (spouse and primary health care surrogate -- he is frail and hard of hearing) --- [phone]; [phone] Rachel Lomas (step-daughter and alternate health care surrogate) -- [phone] . Prognosis Patient has advanced endometrial cancer which has progressed in spite of aggressive treatment. She has metastatic disease to the liver. She is unable to tolerate further aggressive cancer directed therapies. She has had recurrent anemia. She is cachectic, weak, and has intermittent confusion. Life expectancy is probably in the order of weeks. . Code Status: No Code Plan == Code Status: NO CODE -- per my discussion with patient and family at bedside on 08/15/17 == Decision making: Patient has some intermittent confusion. I would want her health care surrogate involved in shared decision making for any major decisions. == Goals of medical treatment: Patient understands she is not a candidate for any aggressive cancer directed treatments. She requests comfort measures and hospice. However, if she should get symptoms managed and happens to get stronger, she might want to see if she can tolerate more chemo at that time. == Symptoms * Pain: Pain is primarily right lower abdominal pain rated as #10 and present for at least a month. It is worse with movement. Medication helps a little, but she reports little relief from current medication regimen. She experienced some non-frightening hallucinations on morphine at home. Pain etiology is probably tumor burden, but pain might be exacerbated by constipation (no bowel movement in 4 days per patient). Will change PRN to parenteral hydromorphone at higher oral morphine equivalent and allow q 2 hours prn. Will also start daily low dose dexamethasone to see if reducing any nikolay-tumor swelling might help. Will also recommend methadone as her long acting opiate in hospice. * Constipation: Pt says she normally goes daily at home but has not had a bowel movement in 4 days. Unclear to what extent this might be obstruction from tumor burden vs just opiate impact on bowel activity. Current hospital bowel protocol is adequate. Patient is being given lactulose now. * Confusion: Confusion is mild and intermittent at this time, but patient was having magaly hallucinations in recent days. Confusion may be multi-factorial. Hopefully, we can reduce confusion by rotating opioids. * Cachexia: Albumin is very low. there has been significant weight loss and appetite is poor. Dexamethasone should help. * Lower extremity edema: This is probably from great vein compression from tumor burden. Dexamethasone should help. == I have re-consulted Hospice and they should be arranging for hospice admission shortly == Recommending hospice care center for management of pain and constipation ( patient lives in [place] -- [facility] is probably most convenient for family). We need to find an adequate pain regimen that will not result in hallucinations. Recommend methadone for long acting oral medication. == Per family request, I have personally canceled their appt for PET scanning scheduled for this Wed at [facility]. . Time Spent Total Floor Time (mins): 90 (Total floor time included chart review, patient exam, discussion with patient alone, discussion with family alone, and then discussion with patient and family together. Collaborated with hospice admissions nurse.) Face to Face Time (mins): 35 >50% Counseling/Coord of Care: Yes Thank you for the opportunity to participate in the care of Ms. Ortiz. . . Attestation To help prompt me to consider important information that might be impacting today's encounter and assessment, information from prior notes written by myself or my colleagues may have been "brought forward" into today's note. My signature on this note, however, is an attestation that I personally performed the exam, history, and/or decision-making noted today, and, unless otherwise indicated, the interactions with patient, family, and staff as well as the review of records all occurred today. I also attest that the listed assessment and stated plan reflect my best clinical judgment today based on the combination of historical information, prior notes, and today's exam/ interactions. When time spent is documented, it refers only to time spent today by the signer, or if indicated, combined time spent today by collaborating physician/nurse practitioner. . Connor Soto MD Aug 15, 2017 10:28
[2017-08-15] MEDS ORDERED: DEXAMETHASONE 0.5 MG TAB PO SCH (10:30)
--- NOTE | 2017-08-15 11:48 | HHI.DS ---
Discharge Summary Admission Date Aug 14, 2017 at 16:30 Discharge Date: Aug 15, 2017 Admitting Diagnosis Intractible Abdominal pain, SIRS. (1) Intractable pain ICD Code: R52 - Pain, unspecified (2) Endometrial ca ICD Code: C54.1 - Malignant neoplasm of endometrium Status: Chronic (3) Weight loss ICD Code: R63.4 - Abnormal weight loss Procedures none Brief History - From Admission 72-year-old female with a history of metastatic uterine cancer who presents to the ER with the problem of intractable pain that was not well controlled with her current pain meds. She was recently placed on a combination of long-acting Oramorph and hydrocodone, but began wandering at night confused raiding the refrigerator, etc. her bladder with uterine cancer began last November (2016) shortly after which she underwent a radical hysterectomy followed by radiation treatments. In April 2017 she had a nodule that was externally palpable. That was surgically removed. CT scan in May 2017 showed recurrence of cancer. Shortly after that she suffered an infection and was hospitalized for a short period. She has not really regained her strength since then, has been generally weak, anemia has plagued her and she received 2 units of packed red blood cells 3 days ago. Her long-term plan is to regain her strength, regain some weight, manage her pain so that she can undergo chemotherapy for treatment of her uterine cancer. She has a PET scan scheduled for this Tuesday. She has been seeing Dr. Deandra Rivera as an outpatient. CBC/BMP: 08/15/17 0412 08/15/17 0412 Significant Findings Laboratory Tests Test 08/14/17 10:45 08/14/17 15:20 08/15/17 04:12 White Blood Count 19.7 TH/MM3 (4.0-11.0) 18.7 TH/MM3 (4.0-11.0) Platelet Count 683 TH/MM3 (150-450) 595 TH/MM3 (150-450) Neutrophils (%) (Auto) 92.4 % (16.0-70.0) 88.9 % (16.0-70.0) Lymphocytes (%) (Auto) 2.7 % (9.0-44.0) 5.5 % (9.0-44.0) Neutrophils # (Auto) 18.2 TH/MM3 (1.8-7.7) 16.6 TH/MM3 (1.8-7.7) Lymphocytes # (Auto) 0.5 TH/MM3 (1.0-4.8) Blood Urea Nitrogen 19 MG/DL (7-18) Total Protein 6.0 GM/DL (6.4-8.2) Albumin 1.7 GM/DL (3.4-5.0) Calcium Level 8.1 MG/DL (8.5-10.1) 7.8 MG/DL (8.5-10.1) Alkaline Phosphatase 562 U/L (45-117) Aspartate Amino Transf (AST/SGOT) 103 U/L (15-37) Total Bilirubin 2.9 MG/DL (0.2-1.0) Estimat Glomerular Filtration Rate 84 ML/MIN (>89) Urine Color ORANGE (YELLW/STRAW) Urine Specific [place] GREATER THAN 1.050 Urine Protein 30 mg/dL (NEG-TRACE) Urine Ketones 10 mg/dL (NEG) Urine Occult Blood MOD (NEG) Urine Bilirubin MOD (NEG) Urine Urobilinogen 8.0 MG/DL (LESS THAN Urine RBC 25 /hpf (0-3) Urine WBC 7 /hpf (0-5) Urine Mucus FEW /lpf (OCC) Red Blood Count 3.69 MIL/MM3 (4.00-5.30) Hemoglobin 10.7 GM/DL (11.6-15.3) Hematocrit 32.4 % (35.0-46.0) Monocytes # (Auto) 1.0 TH/MM3 (0-0.9) Random Glucose 67 MG/DL (74-106) PE at Discharge GENERAL: Cachectic 72-year-old female. Appears comfortable. SKIN: Warm and dry. HEAD: Normocephalic. EYES: No scleral icterus. No injection or drainage. NECK: Supple, trachea midline. No JVD. CARDIOVASCULAR: Regular rate and rhythm without murmurs, gallops, or rubs. RESPIRATORY: Breath sounds equal bilaterally. No accessory muscle use. GASTROINTESTINAL: Abdomen soft, non-tender, nondistended. MUSCULOSKELETAL: No cyanosis. +2 peripheral edema. No erythema or broken skin. BACK: Nontender without obvious deformity. No CVA tenderness. Pt update on day of discharge Patient says she is feeling a little better than yesterday. Denies any chest pain or shortness of breath. Says that OxyContin seems to be helping, however feels increased dose would be helpful. Hospital Course Pain meds were adjusted with some improvement in pain. Oncology was consulted and recommends palliative care, hospice consultation. Family and patient decided to discharge to hospice care center. For problem based summary from admission H&P, please see below. Intractable pain Management using Oramorph and hydrocodone resulted in sleepwalking and confusion Patient stopped taking medications and has been in intractable pain throughout today and yesterday Further history revealed that she had had success with OxyContin in the past Start OxyContin at 20 mg every 12 hours, titrate as needed Morphine 2 mg every 3 hours for breakthrough pain Palliative medicine consult Endometrial cancer Patient has been battling this since November 2016 previously underwent radiation and single round of chemo She wishes to continue her treatment but is too weak at this time, and in too much pain PET scan is scheduled for this Tuesday Consult oncology (Dr. Chadwick Rivera) Weight loss We will defer to palliative medicine to address this once pain is under control to reduce risk of medication side effects Anxiety Patient takes home dose of Ativan 0.5 mg as needed DVT prophylaxis Lovenox Pt Condition on Discharge: Stable Discharge Disposition: Hospice/Med Facility Discharge Time: > 30 minutes Discharge Instructions DIET: Follow Instructions for: As Tolerated, No Restrictions Activities you can perform: Regular-No Restrictions Saúl Anderson MD Aug 15, 2017 11:48
[2017-08-15 11:57] VITALS: BP 109/69; PULSE 110; RESP 20; TEMP 98.5; O2SAT 95
[2017-08-15] MEDS: HYDROmorphone HCL PF 2 MG/ML VIAL IV PUSH PRN ×2 (12:01→14:26)
[2017-08-15] MEDS ORDERED: SENNOSIDES 8.6 MG TAB PO SCH (21:00)
[2017-08-16] MEDS ORDERED: DEXAMETHASONE 4 MG TAB PO SCH (09:00)
== END 2017-08-15 14:58 | disposition hospice, inpatient (51) ==
LOC: NEPC 10:14 → NEDA 16:30 → NEPGCP 19:51
PROVIDERS: ADMIT Internal Medicine; ATTEND Internal Medicine
DX: C54.1 Malignant neoplasm of endometrium (principal); C78.7 Secondary malignant neoplasm of liver and intrahepatic bile duct; R65.10 Systemic inflammatory response syndrome (SIRS) of non-infectious origin without acute organ dysfunction; R10.31 Right lower quadrant pain; K59.00 Constipation, unspecified; R64 Cachexia; R60.0 Localized edema; R63.4 Abnormal weight loss; R53.1 Weakness; R19.5 Other fecal abnormalities; K76.0 Fatty (change of) liver, not elsewhere classified; J90 Pleural effusion, not elsewhere classified; L89.152 Pressure ulcer of sacral region, stage 2; D72.823 Leukemoid reaction; D63.8 Anemia in other chronic diseases classified elsewhere; K21.9 Gastro-esophageal reflux disease without esophagitis; F05 Delirium due to known physiological condition; R19.00 Intra-abdominal and pelvic swelling, mass and lump, unspecified site; B19.10 Unspecified viral hepatitis B without hepatic coma; R44.3 Hallucinations, unspecified; F41.9 Anxiety disorder, unspecified; F32.9 Major depressive disorder, single episode, unspecified
CPT/HCPCS: 70450; 74177; 80048; 80053; 81001; 85025; 96361; 96372; 96374; 96375; 96376; 99285; G0378; J1170; J1650; J2270; J2405; J7030; Q9967